=== PATIENT | female | born 1940 | race Caucasian/White ===

== ENCOUNTER 2016-06-25 11:42 | Inpatient (IN) | payer OTHER, MEDICARE ==
[2016-06-25] VITALS (18 sets, daily range): BP systolic 105–138; BP diastolic 68–88; PULSE 90–134; RESP 16–26; TEMP 97.5–97.9; O2SAT 95–100
[~2016-06-25] VITALS: Ht 170.2 cm; Wt 67.1 kg
[~2016-06-25 11:42] MED LIST: CARV3.125 PO; CLOP75 PO; FURO10S PO; LORT5TAB PO; OMEP20CA5 PO; PARO10TA PO; POTA-243 PO; PRIN5TAB PO; SIMV20 PO
--- NOTE | 2016-06-25 12:12 | PD ---
HPI Chief Complaint: Cardiac Complaint Time Seen by Provider: 11:54 Travel History International Travel<30 days: No Contact w/Intl Traveler<30days: No Traveled to known affect area: No History of Present Illness HPI Patient is a 76 year old female presents to the ER for evaluation of palpitations and feeling week. Patient states progressive over the past few weeks. Apparently patient was just diagnosed with a fib, started on eliquis when her nausea started, switched to xarelto. Patient states feeling very weak since then. Patient denies cp, abdominal pain, diarrhea, constipation. Patient does endorse nausea with one episode of emesis (vomiting her asa this morning). No blood in the stool nor emesis. She has followed with Dr. Benjamin in the past. PFS Past Medical History Hx Anticoagulant Therapy: Yes (XARELTO) Arthritis: Yes (BILAT KNEES) Asthma: No Autoimmune Disease: No Blood Disorders: No Anxiety: Yes Depression: Yes Heart Rhythm Problems: Yes (V-TACH) Cancer: No Cardiomyopathy: Yes Cardiovascular Problems: Yes (A-FIB / DEFIBRILLATOR & PACEMAKER / CHF) High Cholesterol: No Chest Pain: Yes Congestive Heart Failure: Yes (11/2007) COPD: No Cerebrovascular Accident: No Coronary Artery Disease: Yes Diabetes: No Diminished Hearing: No Endocrine: Yes GERD: Yes Glaucoma: No Genitourinary: No Headaches: No Hepatitis: No Hiatal Hernia: Yes Hypertension: Yes Immune Disorder: No Kidney Stones: No Musculoskeletal: Yes Neurologic: No Psychiatric: Yes Reproductive: No Respiratory: Yes (THIS ADMISSION FOR CHF) Migraines: No Myocardial Infarction: No Renal Failure: No Seizures: No Sickle Cell Disease: No Sleep Apnea: No Thyroid Disease: Yes (ENLARGED THYROID) Past Surgical History Abdominal Surgery: No AICD: Yes Appendectomy: Yes Arteriovenous Shunt: No Cardiac Surgery: No Cholecystectomy: Yes Ear Surgery: No Endocrine Surgery: No Eye Surgery: No Genitourinary Surgery: No Gynecologic Surgery: Yes (HYSTERECTOMY) Hysterectomy: Yes Insulin Pump: No Joint Replacement: No Oral Surgery: No Pacemaker: Yes (APR 2008) Thoracic Surgery: Yes (GALL BLADDER) Social History Alcohol Use: No Tobacco Use: No (QUIT 15 YEARS AGO) Substance Use: No Allergies-Medications (Allergen,Severity, Reaction): Coded Allergies: Codeine (Verified Allergy, Severe, BLINDNESS, PALPITATIONS, DIAPHORESIS, ) Reported Meds & Prescriptions Reported Meds & Active Scripts Active Lortab 5/500 (Acetaminophen/Hydrocodone Bitart) 5 Mg/500 Mg Tab 1-2 Tab PO Q6HPRN Reported Prinivil (Lisinopril) 5 Mg Tab 5 Mg PO DAILY Zocor (Simvastatin) 20 Mg Tab 20 Mg PO Coreg (Carvedilol) 3.125 Mg Tab 3.125 Mg PO Furosemide 10 Mg/Ml Marah 20 Mg PO Plavix (Clopidogrel Bisulfate) 75 Mg Tab 75 Mg PO DAILY Klor-Con 10 Meq (Potassium Chloride) 10 Meq Tabcr 10 Meq PO BID Prilosec (Omeprazole) 20 Mg Capcr 20 Mg PO DAILY Paxil (Paroxetine HCl) 10 Mg Tab 10 Mg PO DAILY Review of Systems Except as stated in HPI: all other systems reviewed are Neg Physical Exam Narrative GENERAL: WD/WN in nad. SKIN: Warm and dry. HEAD: Atraumatic. Normocephalic. EYES: Pupils equal and round. No scleral icterus. No injection or drainage. ENT: No nasal bleeding or discharge. Mucous membranes pink and moist. NECK: Trachea midline. No JVD. CARDIOVASCULAR: 2+ bilateral equal pulses in all 4 extremities. No MGR. Irregularly irregular and tachycardic. RESPIRATORY: No accessory muscle use. Clear to auscultation. Breath sounds equal bilaterally. GASTROINTESTINAL: Abdomen soft, non-tender, nondistended. Hepatic and splenic margins not palpable. MUSCULOSKELETAL: Extremities without clubbing, cyanosis, or edema. No obvious deformities. NEUROLOGICAL: Awake and alert. No obvious cranial nerve deficits. Motor grossly within normal limits. Five out of 5 muscle strength in the arms and legs. Normal speech. PSYCHIATRIC: Appropriate mood and affect; insight and judgment normal. Data Data Last Documented VS Vital Signs Date Time Temp Pulse Resp B/P Pulse Ox O2 Delivery O2 Flow Rate FiO2 06/25/16 15:00 106 23 112/71 98 Nasal Cannula 2 06/25/16 11:47 97.6 Orders Electrocardiogram (06/25/16 12:04) Basic Metabolic Panel (Bmp) (06/25/16 12:04) B-Type Natriuretic Peptide (06/25/16 12:04) Ckmb (Isoenzyme) Profile (06/25/16 12:04) Complete Blood Count With Diff (06/25/16 12:04) Magnesium (Mg) (06/25/16 12:04) Prothrombin Time / Inr (Pt) (06/25/16 12:04) Act Partial Throm Time (Ptt) (06/25/16 12:04) Troponin I (06/25/16 12:04) Lipase (06/25/16 12:04) Chest, Single Ap (06/25/16 12:04) Ecg Monitoring (06/25/16 12:04) Bilateral Bp Monitoring (06/25/16 12:04) Iv Access Insert/Monitor (06/25/16 12:04) Oximetry (06/25/16 12:04) Oxygen Administration (06/25/16 12:04) Sodium Chloride 0.9% Flush (Ns Flush) (06/25/16 12:15) Sodium Chlorid 0.9% 500 Ml Inj (Ns 500 M (06/25/16 12:15) Metoprolol Tartrate Inj (Lopressor Inj) (06/25/16 13:30) Aspirin Ec (Ecotrin Ec) (06/25/16 13:30) Aspirin (Aspirin) (06/25/16 13:45) Ondansetron Inj (Zofran Inj) (06/25/16 13:45) Metoprolol Tartrate Inj (Lopressor Inj) (06/25/16 14:00) Electrocardiogram (06/25/16 ) Troponin I (06/25/16 14:36) Admit Order (Ed Use Only) (06/25/16 ) Labs Laboratory Tests Test 06/25/16 12:10 White Blood Count 8.2 TH/MM3 Red Blood Count 3.83 MIL/MM3 Hemoglobin 11.2 GM/DL Hematocrit 33.5 % Mean Corpuscular Volume 87.5 FL Mean Corpuscular Hemoglobin 29.2 PG Mean Corpuscular Hemoglobin 33.3 % Concent Red Cell Distribution Width 16.1 % Platelet Count 165 TH/MM3 Mean Platelet Volume 9.3 FL Neutrophils (%) (Auto) 81.8 % Lymphocytes (%) (Auto) 7.1 % Monocytes (%) (Auto) 10.2 % Eosinophils (%) (Auto) 0.4 % Basophils (%) (Auto) 0.5 % Neutrophils # (Auto) 6.7 TH/MM3 Lymphocytes # (Auto) 0.6 TH/MM3 Monocytes # (Auto) 0.8 TH/MM3 Eosinophils # (Auto) 0.0 TH/MM3 Basophils # (Auto) 0.0 TH/MM3 CBC Comment DIFF FINAL Differential Comment Prothrombin Time 16.7 SEC Prothromb Time International 1.5 RATIO Ratio Activated Partial 31.8 SEC Thromboplast Time Sodium Level 135 MEQ/L Potassium Level 4.6 MEQ/L Chloride Level 100 MEQ/L Carbon Dioxide Level 22.7 MEQ/L Anion Gap 12 MEQ/L Blood Urea Nitrogen 25 MG/DL Creatinine 1.25 MG/DL Estimat Glomerular Filtration 41 ML/MIN Rate Random Glucose 154 MG/DL Calcium Level 8.8 MG/DL Magnesium Level 2.4 MG/DL Total Creatine Kinase 52 U/L Troponin I 0.07 NG/ML B-Type Natriuretic Peptide 819 PG/ML Lipase 122 U/L [facility] Medical Decision Making Medical Screen Exam Complete: Yes Emergency Medical Condition: Yes Interpretation(s) EKG shows atrial fibrillation at a rate of 119. QRS duration is 145, QTC normal. There is ST depression in V5 and V6 no elevations. This is an abnormal EKG. Comparison to 05/28/2008, a widened QRS at [address] depression in V4 through V6 was present in 2008. Differential Diagnosis Afib/rvr, STEMI, NSTEMI, CAD, Anemia, dehydration, nausea. Narrative Course Patient roomed in ER, with history of nausea, was fluid challenged with 500cc bolus of NS, no response in HR. Metoprolol 5mg IV given with modest response, additional dose given and HR now 90-100 (from 120-140). She has equivocal troponin at 0.07. Patient discussed with Dr. Benjamin who agrees with [facility] admission. DIscussed with Dr. Carver. The results were explained to patient and son who agree for admission. Critical Care Narrative Critical Care: The total critical care time was 35 minutes. Time to perform other separately billable procedures was not included in the critical care time. This time was spent titrating metoprolol, discussing with multiple consultants, counseling patient. Risks to patient are /disability/heart failure. Diagnosis Primary Impression: Atrial fibrillation with RVR Additional Impression: Elevated troponin I level Admitting Information Admitting Physician Requests: Observation Condition: Stable Ricardo Tse MD Jun 25, 2016 12:12
[2016-06-25] MEDS ORDERED: SODIUM CHLORID 0.9% 500 ML INJ 500 ML IV ONE (12:15)
[2016-06-25] MEDS: SODIUM CHLORIDE 0.9% FLUSH 5 ML FLUSH IVF PRN ×2 (12:27→13:48)
[2016-06-25 12:46] LABS: AUTOMATED NEUTROPHIL # 6.7 TH/MM3 (1.8-7.7); BASOPHIL % 0.5 % (0.0-2.0); EOSINOPHIL % 0.4 % (0.0-4.0); HEMATOCRIT 33.5 % (35.0-46.0); HEMO FLAGS DIFF FINAL; LYMPH % 7.1 % (9.0-44.0); LYMPHOCYTE # 0.6 TH/MM3 (1.0-4.8); MEAN CELL VOLUME 87.5 FL (80.0-100.0); MEAN CORPUSCULAR HEMOGLOBIN 29.2 PG (27.0-34.0); MEAN CORPUSCULAR HGB CONC 33.3 % (32.0-36.0); MONO % 10.2 % (0.0-8.0); NEUT % 81.8 % (16.0-70.0); PLATELET COUNT 165 TH/MM3 (150-450); RED BLOOD COUNT 3.83 MIL/MM3 (4.00-5.30); RED CELL DISTRIBUTION WIDTH 16.1 % (11.6-17.2); WHITE BLOOD COUNT 8.2 TH/MM3 (4.0-11.0)
--- NOTE | 2016-06-25 12:55 | RADRPT ---
EXAM DATE/TIME: 06/25/2016 12:27 [facility] COMPARISON: No previous studies available for comparison. INDICATIONS : Short of breath. MEDICAL HISTORY : None. SURGICAL HISTORY : Pacemaker. ENCOUNTER: Initial ACUITY: 4 - 6 days PAIN SCORE: 0/10 LOCATION: Bilateral chest FINDINGS: A single view of the chest demonstrates increased opacity in the right mid lung laterally and in the left base. Minimal effusions may be present. The heart is moderately enlarged. AICD device is noted in place. CONCLUSION: Bilateral airspace disease with infiltrate noted in the right midlung and left base. Moderate cardiomegaly. AICD. Murali Mayo MD on June 25, 2016 at 12:53 Board Certified Radiologist. This report was verified electronically.
[2016-06-25 12:56] LABS: APTT (PATIENT) 31.8 SEC (24.3-30.1); INTERNATIONAL NORMALIZED RATIO 1.5 RATIO; PROTHROMBIN TIME - PATIENT 16.7 SEC (9.8-11.6)
[2016-06-25 13:14] LABS: BICARBONATE 22.7 MEQ/L (21.0-32.0); MAGNESIUM 2.4 MG/DL (1.5-2.5); POTASSIUM 4.6 MEQ/L (3.5-5.1)
[2016-06-25] MEDS ORDERED: ASPIRIN EC 325 MG TABEC PO ONE (13:30)
[2016-06-25] MEDS ORDERED: METOPROLOL TARTRATE 5 MG/5 ML VIAL IV PUSH ONE ×2 (13:30→14:00)
[2016-06-25] MEDS ORDERED: ONDANSETRON HCL 4 MG/2 ML VIAL IV PUSH ONE (13:45)
[2016-06-25] MEDS ORDERED: ASPIRIN 325 MG TAB PO ONE (13:45)
[2016-06-25] MEDS ORDERED: PROCHLORPERAZINE 25 MG SUPP PR PRN (15:15)
[2016-06-25] MEDS ORDERED: BISACODYL 10 MG SUPP PR PRN (15:15)
[2016-06-25] MEDS ORDERED: SENNOSIDES 8.6 MG TAB PO PRN (15:15)
[2016-06-25] MEDS ORDERED: SODIUM CHLORIDE 0.9% FLUSH 5 ML FLUSH FLUSH PRN (15:15)
[2016-06-25] MEDS ORDERED: ACETAMINOPHEN 325 MG TAB PO PRN (15:15)
[2016-06-25] MEDS ORDERED: ONDANSETRON HCL 4 MG/2 ML VIAL IVP PRN (15:15)
[2016-06-25] MEDS ORDERED: DILTIAZEM INJ 125 MG in SODIUM CHLORIDE 0.9% INJ 100 ML IV SCH (17:00)
--- NOTE | 2016-06-25 17:10 | HHI.HP ---
HPI [facility] Primary Care Physician Griffin Wiggins MD Admission Diagnosis Afib/RVR, Elevated Troponin, Fatigue Diagnoses: Chief Complaint: fatigue, palpitations Travel History International Travel<30 Days: No Contact w/Intl Traveler <30 Da: No Traveled to Known Affected Are: No History of Present Illness 76-year-old female with history of atrial fibrillation on Xarelto, CHF with pacer/AICD, anxiety/depression, HTN, HLD, GERD, presents with a 1.5 week history of weakness, shortness of breath, and occasional palpitations. The patient reports she has felt severely weak and fatigued over the past 1.5 week; states she has mostly stayed in bed because of this. She can barely ambulate around the house without becoming dyspneic, relieved by rest. She has also been experiencing palpitations, especially after exertion and when she lies down at night. Denies chest pain. She has also been very nauseous, no vomiting, but with decreased appetite and oral intake. Denies any fevers/chills or cough. Denies any orthopnea, lower extremity edema, or recent weight gain. Her general production laborer is Dr. Benjamin. She was recently switched from Eliquis to Xarelto 1.5weeks ago because of the nausea however it has not improved. Upon arrival, patient noted to be in atrial fibrillation with RVR, rate 130s. She was given IV metoprolol 5mg x2, aspirin, and IV zofran. Heart rate now in low 100s. ER physician discussed with the patient's general production laborer Dr. Benjamin who recommended admission to [facility]. Review of Systems Except as stated in HPI: all other systems reviewed are Neg Past Family Social History Past Medical History Atrial fibrillation on Xarelto CAD with 3 stents CHF HTN HLD Thyroid nodules Arthritis Past Surgical History Pacer/AICD Cardiac catheterization with 3 stents Cholecystectomy Hysterectomy Appendectomy Reported Medications Prinivil (Lisinopril) 5 Mg Tab 5 Mg PO DAILY Zocor (Simvastatin) 20 Mg Tab 20 Mg PO Coreg (Carvedilol) 3.125 Mg Tab 3.125 Mg PO Furosemide 10 Mg/Ml Marah 20 Mg PO Plavix (Clopidogrel Bisulfate) 75 Mg Tab 75 Mg PO DAILY Klor-Con 10 Meq (Potassium Chloride) 10 Meq Tabcr 10 Meq PO BID Prilosec (Omeprazole) 20 Mg Capcr 20 Mg PO DAILY Paxil (Paroxetine HCl) 10 Mg Tab 10 Mg PO DAILY Allergies: Coded Allergies: Codeine (Verified Allergy, Severe, BLINDNESS, PALPITATIONS, DIAPHORESIS, ) Active Ordered Medications Current Medications Medications (Trade) Dose Ordered Sig/Michael Route Start Time Stop Time Status Last Admin (NS Flush) 2 ml UNSCH PRN FLUSH 06/25/16 15:15 (NS Flush) 2 ml BID FLUSH 06/25/16 21:00 (Tylenol) 650 mg Q4H PRN PO 06/25/16 15:15 (Zofran Inj) 4 mg Q6H PRN IVP 06/25/16 15:15 (Compazine Supp) 25 mg Q12H PRN MO 06/25/16 15:15 (Dulcolax Supp) 10 mg DAILY PRN MO 06/25/16 15:15 Sennosides 17.2 mg 17.2 mg Q12H PRN PO 06/25/16 15:15 (Cardizem Inj/NS Inj) 125 ml @ 0 mls/hr TITRATE IV 06/25/16 17:00 Family History Mother and Father both before age 65 with heart disease Brother with coronary occlusion/MT, age 35 Younger brother also with heart disease Social History Denies any tobacco, alcohol, or illicit drug use. Physical Exam Vital Signs Vital Signs Date Time Temp Pulse Resp B/P Pulse Ox O2 Delivery O2 Flow Rate FiO2 06/25/16 15:00 106 23 112/71 98 Nasal Cannula 2 06/25/16 14:34 105 26 129/76 98 Nasal Cannula 06/25/16 14:06 106 118/75 06/25/16 13:50 130 20 123/77 98 Room Air 06/25/16 12:15 126 06/25/16 12:15 126 16 122/83 100 Nasal Cannula 2 06/25/16 12:12 100 Nasal Cannula 2 06/25/16 12:11 126 138/74 06/25/16 12:04 134 18 128/88 100 Room Air 06/25/16 11:47 97.6 126 16 132/77 98 Physical Exam GENERAL: Well-nourished, well-developed elderly female patient, in NAD. SKIN: No rashes, ecchymoses or lesions. Cool and dry. HEAD: Atraumatic. Normocephalic. No temporal or scalp tenderness. EYES: Pupils equal round and reactive. Extraocular motions intact. No scleral icterus. No injection or drainage. ENT: Nose without bleeding, purulent drainage or septal hematoma. Airway patent. NECK: Trachea midline. No JVD or lymphadenopathy. Supple, nontender, no meningeal signs. CARDIOVASCULAR: Irregular rate and rhythm without murmurs, gallops, or rubs. RESPIRATORY: Clear to auscultation. Mild crackles at left base, otherwise clear. Breath sounds equal bilaterally. GASTROINTESTINAL: Abdomen soft, non-tender, nondistended. No hepato-splenomegaly , or palpable masses. No guarding. MUSCULOSKELETAL: Extremities without clubbing, cyanosis, or edema. No calf tenderness. Negative Homans sign bilaterally. NEUROLOGICAL: Awake and alert. Cranial nerves II through XII intact. Motor and sensory grossly within normal limits. Five out of 5 muscle strength in all muscle groups. Normal speech. Laboratory Laboratory Tests Test 06/25/16 06/25/16 12:10 15:25 White Blood Count 8.2 Red Blood Count 3.83 Hemoglobin 11.2 Hematocrit 33.5 Mean Corpuscular Volume 87.5 Mean Corpuscular Hemoglobin 29.2 Mean Corpuscular Hemoglobin 33.3 Concent Red Cell Distribution Width 16.1 Platelet Count 165 Mean Platelet Volume 9.3 Neutrophils (%) (Auto) 81.8 Lymphocytes (%) (Auto) 7.1 Monocytes (%) (Auto) 10.2 Eosinophils (%) (Auto) 0.4 Basophils (%) (Auto) 0.5 Neutrophils # (Auto) 6.7 Lymphocytes # (Auto) 0.6 Monocytes # (Auto) 0.8 Eosinophils # (Auto) 0.0 Basophils # (Auto) 0.0 CBC Comment DIFF FINAL Differential Comment Prothrombin Time 16.7 Prothromb Time International 1.5 Ratio Activated Partial 31.8 Thromboplast Time Sodium Level 135 Potassium Level 4.6 Chloride Level 100 Carbon Dioxide Level 22.7 Anion Gap 12 Blood Urea Nitrogen 25 Creatinine 1.25 Estimat Glomerular Filtration 41 Rate Random Glucose 154 Calcium Level 8.8 Magnesium Level 2.4 Total Creatine Kinase 52 Troponin I 0.07 0.07 B-Type Natriuretic Peptide 819 Lipase 122 Result Diagram: 06/25/16 1210 06/25/16 1210 Assessment and Plan Assessment and Plan 76-year-old female with history of atrial fibrillation on Xarelto, CHF with pacer/AICD, anxiety/depression, HTN, HLD, GERD, presents with a 1.5 week history of weakness, shortness of breath, and occasional palpitations. Atrial Fibrillation with RVR: HR in 130s upon arrival, s/p IV metoprolol 5mg x2 , aspirin, and IV zofran. Heart rate now in low 100s. Monitor on telemetry. Admit to [facility]. Restart patient's Eliquis. Cardizem drip prn if HR >110. Consult patient's general production laborer Dr. Benjamin. Elevated Troponin with suspect new LBBB: No specific chest pains however with severe nausea, palpitations. Troponins 0.07 x2, EKG with suspected new LBBB with ST depression V5-6, compared to prior EKG from 2009. Checking 3rd set of cardiac enzymes/EKGs. Give aspirin. Restart patient's home meds when verified by RN. Consult cardiology. Weakness/Fatigue: suspect related to above. Check echocardiogram with hx of CHF. Consult PT. Patient may benefit from rehab. Hypertension/Hyperlipidemia: chronic, continue patient's home meds once verified. Monitor BP, adjust antihypertensives as needed. CHF: chronic, does not appear to be in exacerbation. Continue patient's home meds once verified. Check echo. NEEDS HOME MEDS VERIFIED. ASKED RN TO UPDATE MED REC BEFORE RESTARTING HOME MEDICATIONS. DVT Prophylaxis: Eliquis Written by Chanelle Damon, acting as scribe for Dr. Ma on 06/25/16 at 17:09. All or portions of this note were transcribed by scribe Chanelle Damon. I, Dr. Shakira Ma personally performed the history, physical exam, and medical decision making; and confirmed the accuracy of the information in the transcribed note. Authenticated by Dr. Shakira Ma on 06/25/16 at 19:24. Code Status Full Code Discussed Condition With Patient, Patient's family member at bedside, ER MD. Physician Certification 2 Midnight Certification Type: Admission for Inpatient Services Order for Inpatient Services The services are ordered in accordance with Medicare regulations or non- Medicare payer requirements, as applicable. In the case of services not specified as inpatient-only, they are appropriately provided as inpatient services in accordance with the 2-midnight benchmark. Estimated LOS (days): 3 days is the estimated time the patient will need to remain in the hospital, assuming treatment plan goals are met and no additional complications. Post-Hospital Plan: Home Chanelle Damon PA-C Jun 25, 2016 17:10 Shakira Ma MD Jun 25, 2016 19:26
[2016-06-25] MEDS: SODIUM CHLORIDE 0.9% FLUSH 5 ML FLUSH FLUSH SCH (21:00)
[2016-06-25] MEDS ORDERED: APIXABAN 5 MG TABLET PO SCH (21:00)
[2016-06-26] VITALS (31 sets, daily range): BP systolic 105–122; BP diastolic 65–87; PULSE 80–113; RESP 16–19; TEMP 97.8–98.3; O2SAT 93–97
[2016-06-26 06:46] LABS: AUTOMATED NEUTROPHIL # 6.4 TH/MM3 (1.8-7.7); BASOPHIL % 0.3 % (0.0-2.0); EOSINOPHIL # 0.1 TH/MM3 (0-0.4); EOSINOPHIL % 0.7 % (0.0-4.0); HEMATOCRIT 31.9 % (35.0-46.0); HEMO FLAGS DIFF FINAL; LYMPH % 11.3 % (9.0-44.0); MEAN CORPUSCULAR HEMOGLOBIN 28.9 PG (27.0-34.0); MEAN CORPUSCULAR HGB CONC 32.8 % (32.0-36.0); MONO % 13.2 % (0.0-8.0); NEUT % 74.5 % (16.0-70.0); PLATELET COUNT 147 TH/MM3 (150-450); RED BLOOD COUNT 3.62 MIL/MM3 (4.00-5.30); RED CELL DISTRIBUTION WIDTH 16.2 % (11.6-17.2); WHITE BLOOD COUNT 8.6 TH/MM3 (4.0-11.0)
[2016-06-26 07:02] LABS: BICARBONATE 24.2 MEQ/L (21.0-32.0); POTASSIUM 4.5 MEQ/L (3.5-5.1)
--- NOTE | 2016-06-26 07:47 | HHI.PR ---
Subjective Remarks Patient says she feels lightheadede, some nausea but did not vomit, says she did not eat breakfast. No chest pain at this time. No n/v/d/c. Doesn't feel palpitations. Objective Vitals Vital Signs Date Time Temp Pulse Resp B/P Pulse Ox O2 Delivery O2 Flow Rate FiO2 06/26/16 06:03 93 06/26/16 05:04 84 06/26/16 04:05 81 06/26/16 03:45 98.2 90 16 105/65 93 06/26/16 03:34 95 Nasal Cannula 2.00 06/26/16 03:11 85 06/26/16 02:15 81 06/26/16 01:02 84 06/26/16 00:33 95 06/25/16 23:56 97.9 93 16 114/75 95 06/25/16 23:00 94 06/25/16 22:00 90 06/25/16 21:00 96 06/25/16 20:00 98 06/25/16 19:45 96 06/25/16 19:30 97.5 93 19 105/68 95 06/25/16 18:00 110 22 120/87 97 Nasal Cannula 2 06/25/16 17:00 102 26 127/69 98 Nasal Cannula 2 06/25/16 16:00 122 17 119/72 97 Nasal Cannula 2 06/25/16 15:00 106 23 112/71 98 Nasal Cannula 2 06/25/16 14:34 105 26 129/76 98 Nasal Cannula 06/25/16 14:06 106 118/75 06/25/16 13:50 130 20 123/77 98 Room Air 06/25/16 12:15 126 06/25/16 12:15 126 16 122/83 100 Nasal Cannula 2 06/25/16 12:12 100 Nasal Cannula 2 06/25/16 12:11 126 138/74 06/25/16 12:04 134 18 128/88 100 Room Air 06/25/16 11:47 97.6 126 16 132/77 98 I/O 06/25/16 06/25/16 06/25/16 06/26/16 06/26/16 06/26/16 07:00 15:00 23:00 07:00 15:00 23:00 Intake Total 480 ml Output Total 750 ml Balance -270 ml Intake Oral 480 ml Output Urine Total 750 ml Result Diagram: 06/26/16 0605 06/26/16 0605 Imaging Last Impressions Chest X-Ray 06/25/16 1204 Signed Impressions: Service Date/Time: Saturday, June 25, 2016 12:27 - CONCLUSION: Bilateral airspace disease with infiltrate noted in the right midlung and left base. Moderate cardiomegaly. AICD. Murali Mayo MD Objective Remarks GENERAL: Well-nourished, well-developed elderly female patient, in NAD. SKIN: No rashes, ecchymoses or lesions. Cool and dry. HEAD: Atraumatic. Normocephalic. No temporal or scalp tenderness. EYES: Pupils equal round and reactive. Extraocular motions intact. No scleral icterus. No injection or drainage. ENT: Nose without bleeding, purulent drainage or septal hematoma. Airway patent. NECK: Trachea midline. No JVD or lymphadenopathy. Supple, nontender, no meningeal signs. CARDIOVASCULAR: Irregular rate and rhythm without murmurs, gallops, or rubs. RESPIRATORY: Clear to auscultation. Mild crackles at left base, otherwise clear. Breath sounds equal bilaterally. GASTROINTESTINAL: Abdomen soft, non-tender, nondistended. No hepato-splenomegaly , or palpable masses. No guarding. MUSCULOSKELETAL: Extremities without clubbing, cyanosis, or edema. No calf tenderness. Negative Homans sign bilaterally. NEUROLOGICAL: Awake and alert. Cranial nerves II through XII intact. Motor and sensory grossly within normal limits. Five out of 5 muscle strength in all muscle groups. Normal speech. A/P Assessment and Plan 76-year-old female with history of atrial fibrillation on Xarelto, CHF with pacer/AICD, anxiety/depression, HTN, HLD, GERD, presents with a 1.5 week history of weakness, shortness of breath, and occasional palpitations. Atrial Fibrillation with RVR: HR in 130s upon arrival, s/p IV metoprolol 5mg x2 , aspirin, and IV zofran. Heart rate now in low 100s. Monitor on telemetry. Admit to [facility]. Restart patient's Eliquis. Cardizem drip prn if HR >110. Consult patient's projection camera operator Dr. Benjamin. Patient with beats of Vtach noted later. Seen by Dr Benjamin recommends myoview stress test Elevated Troponin with suspect new LBBB: No specific chest pains however with severe nausea, palpitations. Troponins 0.07 x2, EKG with suspected new LBBB with ST depression V5-6, compared to prior EKG from 2009. Checking 3rd set of cardiac enzymes/EKGs. Give aspirin. Restart patient's home meds when verified by RN. Consult cardiology. Plan for stress test Weakness/Fatigue: suspect related to above. Check echocardiogram with hx of CHF. Consult PT. Patient may benefit from rehab. Hypertension/Hyperlipidemia: chronic, continue patient's home meds once verified. Monitor BP, adjust antihypertensives as needed. CHF: chronic, does not appear to be in exacerbation. Continue patient's home meds once verified. Check echo. DVT Prophylaxis: Eliquis Code Status Full Code Discussed Condition With Patient, nurse Shakira Ma MD Jun 26, 2016 07:47
[2016-06-26] MEDS ORDERED: CLOPIDOGREL 75 MG TAB PO SCH (09:00)
[2016-06-26] MEDS ORDERED: ZOCO20TA PO (09:48)
[2016-06-26] MEDS ORDERED: FURO20TA PO (09:48)
[2016-06-26] MEDS ORDERED: PRIL20CA9 PO (09:48)
[2016-06-26] MEDS ORDERED: PAXI10TA2 PO (09:48)
[2016-06-26] MEDS ORDERED: POTA10CA PO (09:48)
[2016-06-26] MEDS ORDERED: CARV3.12 PO (09:48)
[2016-06-26] MEDS ORDERED: LISI-519 PO (09:48)
[2016-06-26] MEDS: SODIUM CHLORIDE 0.9% FLUSH 5 ML FLUSH FLUSH SCH ×2 (10:30→21:12)
[2016-06-26] MEDS: CARVEDILOL 12.5 MG TAB PO SCH ×2 (10:37→21:12)
[2016-06-26] MEDS: PANTOPRAZOLE SOD 20 MG DELAYED RELEASE TAB PO SCH (10:37)
--- NOTE | 2016-06-26 12:53 | EC ---
Study Study Date:06/26/2016 STUDY CONCLUSIONS SUMMARY - Left ventricle: The cavity size was dilated. Wall thickness was normal. Systolic function was severely reduced by visual assessment. The estimated ejection fraction was in the range of 15% to 20%. Diffuse hypokinesis. - Aortic valve: Valve area: 2.59cm^2 (Vmax). - Mitral valve: Severe regurgitation. - Left atrium: The atrium was moderately to severely dilated. - Right atrium: The atrium was mildly to moderately dilated. - Tricuspid valve: Mild-moderate regurgitation. - Pulmonary arteries: Systolic pressure was moderately to severely increased. If LV function is below 40, please consider prescribing an ACEI or ARB or document rationale for non-use. PROCEDURE DATA STUDY STATUS: Elective. Procedure: Transthoracic echocardiography. Image quality was good. Scanning was performed from the parasternal, apical, and subcostal acoustic windows. Study completion: The patient tolerated the procedure well. Transthoracic echocardiography. M-mode, complete 2D, complete spectral Doppler, and color Doppler. Height: Height: 67in. Weight: Weight: 142.7lb. Body mass index: BMI: 22.4kg/m^2. Body surface area: BSA: 1.75m^2. Patient status: Inpatient. CARDIAC ANATOMY LEFT VENTRICLE: The cavity size was dilated. Wall thickness was normal. Systolic function was severely reduced by visual assessment. The estimated ejection fraction was in the range of 15% to 20%. Diffuse hypokinesis. AORTIC VALVE: Trileaflet; normal thickness leaflets. Doppler: Transvalvular velocity was within the normal range. There was no stenosis. No regurgitation. Valve area: 2.59cm^2 (Vmax). Indexed valve area: 1.48cm^2/m^2 (Vmax). AORTA: Aortic root: The aortic root was normal in size. MITRAL VALVE: Structurally normal valve. Doppler: Transvalvular velocity was within the normal range. There was no evidence for stenosis. Severe regurgitation. Valve area by pressure half-time: 6.67cm^2. Indexed valve area by pressure half-time: 3.81cm^2/m^2. Mean gradient: 52mm Hg (D). Peak gradient: 93mm Hg (D). LEFT ATRIUM: The atrium was moderately to severely dilated. RIGHT VENTRICLE: The cavity size was normal. Wall thickness was normal. There may be a pacer wire noted in right ventricle. Only seen in one view. It may also be artifact. clinical correlation. PULMONIC VALVE: Doppler: Transvalvular velocity was within the normal range. There was no evidence for stenosis. No regurgitation. TRICUSPID VALVE: Structurally normal valve. Doppler: Transvalvular velocity was within the normal range. Mild-moderate regurgitation. Peak gradient: 43mm Hg (D). PULMONARY ARTERY: The main pulmonary artery was normal-sized. Systolic pressure was moderately to severely increased. RIGHT ATRIUM: The atrium was mildly to moderately dilated. PERICARDIUM: There was no pericardial effusion. SYSTEMIC VEINS: Inferior vena cava: The vessel was dilated. Patient weight: 142.7lb _Ejection fraction:_ 65-75% _Fractional shortening:_ 32% up to 5Kg 5-11.5Kg 11.6-22.9Kg 23-45Kg 45-57Kg Aortic Root 7-13 <17 13-22 17-27 17-27 LA diam 6-13 <23 24-38 33-47 37-40 RVID 10-17 7-15 7-15 7-18 8-17 LVIDd 12-22 <32 24-38 33-47 37-40 LVPW 2-4 3-6 5-7 6-8 7-8 IVS 2-4 3-6 5-7 6-8 7-8 BASIC MEASUREMENTS ADULT NORMAL Left ventricle LV internal dimension, ED, chordal *60.5 mm 43-52 level, PLAX LV internal dimension, ES, chordal *54.7 mm 23-38 level, PLAX Fractional shortening, chordal level, *10 % >29 PLAX LV posterior wall thickness, ED 8.36 mm IVS/LVPW ratio, ED 1 <1.3 Volume, ED, MOD, 1-plane 59 ml Volume index, ED, MOD, 1-plane 34 ml/m^2 Ventricular septum Septal thickness, ED 8.36 mm Aortic valve Leaflet separation 19 mm 15-26 Left atrium Anterior-posterior dimension 46 mm Anterior-posterior dimension index *2.63 cm/m^2 <2.2 Right ventricle RV internal dimension, ED, PLAX 28.5 mm 19-38 BASIC MEASUREMENTS ADULT NORMAL Aortic valve Leaflet separation 19 mm 15-26 Aorta Root diameter, ED 33 mm 20-37 DOPPLER MEASUREMENTS ADULT NORMAL Aortic valve Peak velocity, S 99.1 cm/s VTI, S 142 cm Valve area, Vmax 2.59 cm^2 Valve area index, Vmax 1.48 cm^2/m^2 Mitral valve Mean velocity, D 332 cm/s Pressure half-time 33 ms Mean gradient, D 52 mm Hg Peak gradient, D 93 mm Hg Valve area, pressure half-time 6.67 cm^2 Valve area index, pressure half-time 3.81 cm^2/m^2 Tricuspid valve Peak gradient, D 43 mm Hg Maximal inflow velocity 326 cm/s Systemic veins Estimated CVP 10 mm Hg Pulmonic valve Peak velocity, S 59.7 cm/s LEGEND: Mean values are shown as u=mean value. Asterisk (*) perera values outside specified normal range. Amended Willis Roberts [id number]
[2016-06-26] MEDS ORDERED: DIGOXIN 0.25 MG TAB PO ONE (14:00)
--- NOTE | 2016-06-26 14:26 | MB ---
cc: HANG DENISE MD DATE OF CONSULTATION: 06/26/2016 REASON FOR CONSULTATION Atrial fibrillation and elevated troponin. HISTORY OF PRESENT ILLNESS The patient is a pleasant 76-year-old woman known to me with a recent diagnosis of atrial fibrillation. She presented to my office with 1-2 weeks of weakness, fatigue and palpitations and was found to be in atrial fibrillation. She was initially started on Eliquis but this was changed to Xarelto due to generalized symptoms which the patient attributed to the new anticoagulant. These symptoms never really improved even with changing to Xarelto and she presented to the hospital in a mildly rapid atrial fibrillation with slightly elevated troponin. Her heart rate is controlled now and she has no further symptoms. She is asymptomatic denying any chest pain, shortness breath, lightheadedness, dizziness or syncope. PAST MEDICAL HISTORY 1. Newly discovered atrial fibrillation on Xarelto. 2. Ischemic cardiomyopathy with ejection fraction of 15-20%. 3. AICD. 4. CHF. 5. Hypertension. 6. Hyperlipidemia. MEDICATIONS Current medications: 1. Xarelto 20 mg daily. 2. Coreg 12.5 mg q.12h. 3. Protonix 20 mg daily. ALLERGIES CODEINE. PHYSICAL EXAMINATION VITAL SIGNS: Afebrile. Pulse 87, respiratory rate 16, blood pressure 113/75. Satting 93% on two liters. GENERAL: A pleasant elderly woman in no distress. NECK: No JVD. LUNGS: Decreased breath sounds at the bases. CARDIOVASCULAR: Irregularly irregular rhythm with regular rate. No murmurs appreciated. ABDOMEN: Benign. EXTREMITIES: No edema. LABORATORY DATA White count 8.6, hematocrit 31.9, platelets 147. Sodium 138, potassium 4.5, chloride 102, bicarb 24.2, BUN 25, creatinine 1.2. Troponins are flat at 0.07. BNP is modestly elevated at 116. IMAGING DATA Chest x-ray shows cardiomegaly with a right middle and left infiltrate. EKG DATA EKG on admission showed atrial fibrillation, rate of 120, left bundle-branch block. Telemetry shows reasonably controlled atrial fibrillation at about 100 beats per minute with episodes of nonsustained ventricular tachycardia. IMPRESSION AND PLAN 1. Atrial fibrillation. The patient has newly diagnosed atrial fibrillation and has been somewhat symptomatic, particularly due to her low ejection fraction. Her heart rates have been improving, though they are still suboptimal. Her blood pressures have been low at times so I am reluctant to increase the carvedilol. I will try adding low-dose digoxin. 2. Elevated troponin. This is a nonspecific finding. I will have her undergo a nuclear stress test given the new atrial fibrillation. She has a known cardiomyopathy. 3. Cardiomyopathy. Her lisinopril has not been restarted. I will restart this given her low ejection fraction. We will have to watch her blood pressures of course. Further recommendations based on her clinical. Hopefully she can be discharged home tomorrow. Thank you again for the opportunity to participate in this patient's care. MD LALIT Song/BRENDA /1:56 PM /2:14 PM
--- NOTE | 2016-06-26 14:42 | EKG ---
Date Performed: 06/25/2016 Time Performed: 12:02:54 PTAGE: 76 years EKG: ATRIAL FIBRILLATION WITH RAPID VENTRICULAR RESPONSE MARKED LEFT AXIS DEVIATION LEFT BUNDLE BRANCH BLOCK ABNORMAL ECG Compared to PREVIOUS TRACING , the ventricular response to atrial fibrillation has increased. PREVIOU S TRACIN05/28/2008 13.03 DOCTOR: Fernando Benjamin Interpretating Date/Time 06/26/2016 14:38:56
--- NOTE | 2016-06-26 14:43 | EKG ---
Date Performed: 06/25/2016 Time Performed: 15:36:47 PTAGE: 76 years EKG: ATRIAL FLUTTER/TACHYCARDIA WITH RAPID VENTRICULAR RESPONSE MARKED LEFT AXIS DEVIATION LEFT BUNDLE BRANCH BLOCK ABNORMAL ECG Compared to PREVIOUS TRACING ventricular response has decreased. PREVIOUS TRACIN06/25/2016 12.02 DOCTOR: Fernando Benjamin Interpretating Date/Time 06/26/2016 14:39:36
--- NOTE | 2016-06-26 14:45 | EKG ---
Date Performed: 06/25/2016 Time Performed: 22:25:44 PTAGE: 76 years EKG: Atrial fibrillation with PVC(s) Left axis deviation Incomplete LBBB QRS changes V3/V4 may b e due to LVH but cannot rule out anterior infarct Possible left ventricular hypertrophy Inferior/late ral ST-T changes may be due to hypertrophy and/or ischemia Abnormal ECG Compared to PREVIOUS TRACING , the ventricular response has decreased further. PREVIOUS TRACIN06/13 15.36 DOCTOR: Fernando Benjamin Interpretating Date/Time 06/26/2016 14:40:03
[2016-06-26] MEDS ORDERED: RIVAROXABAN 20 MG TAB PO SCH (17:00)
[2016-06-26] MEDS ORDERED: diphenhydrAMINE HCL 25 MG CAP PO ONE (20:00)
[2016-06-27] VITALS (17 sets, daily range): BP systolic 123–138; BP diastolic 81–90; PULSE 65–118; RESP 16–19; TEMP 97.5–98.5; O2SAT 92–96
[2016-06-27 06:19] LABS: AUTOMATED NEUTROPHIL # 8.4 TH/MM3 (1.8-7.7); BASOPHIL % 0.4 % (0.0-2.0); EOSINOPHIL % 0.3 % (0.0-4.0); HEMATOCRIT 29.8 % (35.0-46.0); HEMO FLAGS DIFF FINAL; LYMPH % 4.7 % (9.0-44.0); LYMPHOCYTE # 0.5 TH/MM3 (1.0-4.8); MEAN CELL VOLUME 87.9 FL (80.0-100.0); MEAN CORPUSCULAR HEMOGLOBIN 29.2 PG (27.0-34.0); MEAN CORPUSCULAR HGB CONC 33.3 % (32.0-36.0); MONO % 10.5 % (0.0-8.0); NEUT % 84.1 % (16.0-70.0); PLATELET COUNT 136 TH/MM3 (150-450); RED BLOOD COUNT 3.39 MIL/MM3 (4.00-5.30); RED CELL DISTRIBUTION WIDTH 15.7 % (11.6-17.2)
[2016-06-27 06:48] LABS: ANION GAP 12 MEQ/L (5-15); BICARBONATE 23.8 MEQ/L (21.0-32.0); BLOOD UREA NITROGEN 23 MG/DL (7-18); CHLORIDE 102 MEQ/L (98-107); GLOMERULAR FILTRATION RATE 53 ML/MIN (>89); POTASSIUM 4.2 MEQ/L (3.5-5.1); SODIUM (NA) 138 MEQ/L (136-145)
--- NOTE | 2016-06-27 07:06 | PD.CARD.PN ---
Subjective Subjective Remarks PT without complaints Objective Medications Current Medications Medications (Trade) Dose Ordered Sig/Michael Route Start Time Stop Time Status Last Admin (NS Flush) 2 ml UNSCH PRN FLUSH 06/25/16 15:15 (NS Flush) 2 ml BID FLUSH 06/25/16 21:00 06/26/16 21:12 (Tylenol) 650 mg Q4H PRN PO 06/25/16 15:15 (Zofran Inj) 4 mg Q6H PRN IVP 06/25/16 15:15 (Compazine Supp) 25 mg Q12H PRN ND 06/25/16 15:15 (Dulcolax Supp) 10 mg DAILY PRN ND 06/25/16 15:15 06/27/16 03:13 Sennosides 17.2 mg 17.2 mg Q12H PRN PO 06/25/16 15:15 06/26/16 15:10 (Cardizem Inj/NS Inj) 125 ml @ 0 mls/hr TITRATE IV 06/25/16 17:00 06/25/16 18:53 (Xarelto) 20 mg DAILY@17 PO 06/26/16 17:00 06/26/16 17:48 (Plavix) 75 mg DAILY PO 06/26/16 09:00 (Coreg) 12.5 mg Q12HR PO 06/26/16 09:00 06/26/16 21:12 (Protonix) 20 mg DAILY PO 06/26/16 09:00 06/26/16 10:37 (Prinivil) 5 mg DAILY PO 06/27/16 09:00 (Lanoxin) 0.125 mg DAILY PO 06/28/16 09:00 Vital Signs / I&O Vital Signs Date Time Temp Pulse Resp B/P Pulse Ox O2 Delivery O2 Flow Rate FiO2 06/27/16 06:19 101 06/27/16 05:13 99 06/27/16 04:01 104 06/27/16 03:30 106 06/27/16 03:16 98.5 118 19 129/83 94 06/27/16 02:20 108 06/27/16 01:19 108 06/27/16 00:06 107 06/26/16 23:15 98.2 109 17 113/87 96 06/26/16 23:00 102 06/26/16 22:35 102 06/26/16 21:00 110 06/26/16 20:36 94 21 06/26/16 20:00 108 06/26/16 19:15 98.2 106 19 122/83 95 06/26/16 19:00 101 06/26/16 18:04 113 06/26/16 17:14 108 06/26/16 16:00 96 06/26/16 15:30 97.9 100 16 121/80 97 06/26/16 15:00 89 06/26/16 14:00 102 06/26/16 13:00 87 06/26/16 12:00 98.3 99 16 113/75 93 06/26/16 12:00 94 06/26/16 11:10 96 Nasal Cannula 2.00 06/26/16 11:00 100 06/26/16 10:00 94 06/26/16 09:00 96 06/26/16 08:00 86 06/26/16 08:00 97.8 90 16 120/65 96 I/O 06/26/16 06/26/16 06/26/16 06/27/16 06/27/16 06/27/16 07:00 15:00 23:00 07:00 15:00 23:00 Intake Total 480 ml 480 ml 240 ml Output Total 750 ml 600 ml 350 ml Balance -270 ml -120 ml -110 ml Intake Oral 480 ml 480 ml 240 ml Output Urine Total 750 ml 600 ml 350 ml # Bowel Movements 0 Physical Exam GENERAL: Well developed, well nourished. No acute distress. HEENT: Jugular venous pressure is normal. CHEST: Lungs clear to auscultation bilaterally. Unlabored respiratory effort. CARDIAC: irregular rate and rhythm without S3, S4, or murmur. ABDOMEN: Soft, nontender, no hepatosplenomegaly. Bowel sounds present. EXTREMITIES: No clubbing, cyanosis, or edema. Laboratory Laboratory Tests Test 06/27/16 05:34 White Blood Count 10.0 TH/MM3 Red Blood Count 3.39 MIL/MM3 Hemoglobin 9.9 GM/DL Hematocrit 29.8 % Mean Corpuscular Volume 87.9 FL Mean Corpuscular Hemoglobin 29.2 PG Mean Corpuscular Hemoglobin 33.3 % Concent Red Cell Distribution Width 15.7 % Platelet Count 136 TH/MM3 Mean Platelet Volume 8.5 FL Neutrophils (%) (Auto) 84.1 % Lymphocytes (%) (Auto) 4.7 % Monocytes (%) (Auto) 10.5 % Eosinophils (%) (Auto) 0.3 % Basophils (%) (Auto) 0.4 % Neutrophils # (Auto) 8.4 TH/MM3 Lymphocytes # (Auto) 0.5 TH/MM3 Monocytes # (Auto) 1.1 TH/MM3 Eosinophils # (Auto) 0.0 TH/MM3 Basophils # (Auto) 0.0 TH/MM3 CBC Comment DIFF FINAL Differential Comment Sodium Level 138 MEQ/L Potassium Level 4.2 MEQ/L Chloride Level 102 MEQ/L Carbon Dioxide Level 23.8 MEQ/L Anion Gap 12 MEQ/L Blood Urea Nitrogen 23 MG/DL Creatinine 1.01 MG/DL Estimat Glomerular Filtration 53 ML/MIN Rate Random Glucose 110 MG/DL Calcium Level 8.5 MG/DL Imaging Last 72 hours Impressions Chest X-Ray 06/25/16 1204 Signed Impressions: Service Date/Time: Saturday, June 25, 2016 12:27 - CONCLUSION: Bilateral airspace disease with infiltrate noted in the right midlung and left base. Moderate cardiomegaly. AICD. Murali Mayo MD Assessment and Plan Assessment and Plan AF - still some RVR though not sustained -increase coreg -stop xarelto secondary to anemia hx CAD- stop plavix secondary anemia cardiomyopathy-coreg and lisinopril trop- nuc today Anemia- hemoglobin dropped 11.2=> 9.9 stop anticoagulants, further work up by primary team ok for d/c if no ischemia and rate controlled Silvia Ng MD Jun 27, 2016 07:06
[2016-06-27] MEDS: SODIUM CHLORIDE 0.9% FLUSH 5 ML FLUSH FLUSH SCH (07:33)
[2016-06-27] MEDS: PANTOPRAZOLE SOD 20 MG DELAYED RELEASE TAB PO SCH (07:34)
--- NOTE | 2016-06-27 07:34 | HHI.PR ---
Subjective Remarks Feels much better today. Say sshe has no more pain . No n/v/d/c. Says she has constipation. Objective Vitals Vital Signs Date Time Temp Pulse Resp B/P Pulse Ox O2 Delivery O2 Flow Rate FiO2 06/27/16 06:19 101 06/27/16 05:13 99 06/27/16 04:01 104 06/27/16 03:30 106 06/27/16 03:16 98.5 118 19 129/83 94 06/27/16 02:20 108 06/27/16 01:19 108 06/27/16 00:06 107 06/26/16 23:15 98.2 109 17 113/87 96 06/26/16 23:00 102 06/26/16 22:35 102 06/26/16 21:00 110 06/26/16 20:36 94 21 06/26/16 20:00 108 06/26/16 19:15 98.2 106 19 122/83 95 06/26/16 19:00 101 06/26/16 18:04 113 06/26/16 17:14 108 06/26/16 16:00 96 06/26/16 15:30 97.9 100 16 121/80 97 06/26/16 15:00 89 06/26/16 14:00 102 06/26/16 13:00 87 06/26/16 12:00 98.3 99 16 113/75 93 06/26/16 12:00 94 06/26/16 11:10 96 Nasal Cannula 2.00 06/26/16 11:00 100 06/26/16 10:00 94 06/26/16 09:00 96 06/26/16 08:00 86 06/26/16 08:00 97.8 90 16 120/65 96 I/O 06/26/16 06/26/16 06/26/16 06/27/16 06/27/16 06/27/16 07:00 15:00 23:00 07:00 15:00 23:00 Intake Total 480 ml 480 ml 240 ml Output Total 750 ml 600 ml 350 ml Balance -270 ml -120 ml -110 ml Intake Oral 480 ml 480 ml 240 ml Output Urine Total 750 ml 600 ml 350 ml # Bowel Movements 0 Result Diagram: 06/27/16 0534 06/27/16 0534 Imaging Last Impressions Chest X-Ray 06/25/16 1204 Signed Impressions: Service Date/Time: Saturday, June 25, 2016 12:27 - CONCLUSION: Bilateral airspace disease with infiltrate noted in the right midlung and left base. Moderate cardiomegaly. AICD. Murali Mayo MD Objective Remarks GENERAL: Well-nourished, well-developed elderly female patient, in NAD. SKIN: No rashes, ecchymoses or lesions. Cool and dry. HEAD: Atraumatic. Normocephalic. No temporal or scalp tenderness. EYES: Pupils equal round and reactive. Extraocular motions intact. No scleral icterus. No injection or drainage. ENT: Nose without bleeding, purulent drainage or septal hematoma. Airway patent. NECK: Trachea midline. No JVD or lymphadenopathy. Supple, nontender, no meningeal signs. CARDIOVASCULAR: Irregular rate and rhythm without murmurs, gallops, or rubs. RESPIRATORY: Clear to auscultation. Mild crackles at left base, otherwise clear. Breath sounds equal bilaterally. GASTROINTESTINAL: Abdomen soft, non-tender, nondistended. No hepato-splenomegaly , or palpable masses. No guarding. MUSCULOSKELETAL: Extremities without clubbing, cyanosis, or edema. No calf tenderness. Negative Homans sign bilaterally. NEUROLOGICAL: Awake and alert. Cranial nerves II through XII intact. Motor and sensory grossly within normal limits. Five out of 5 muscle strength in all muscle groups. Normal speech. A/P Assessment and Plan 76-year-old female with history of atrial fibrillation on Xarelto, CHF with pacer/AICD, anxiety/depression, HTN, HLD, GERD, presents with a 1.5 week history of weakness, shortness of breath, and occasional palpitations. Atrial Fibrillation with RVR: Systolic CHF with low EF if 15-20 %, diffuse hypokinesis, MV with severe regurgitation HR in 130s upon arrival, s/p IV metoprolol 5mg x2, aspirin, and IV zofran. Heart rate now in low 100s. Monitor on telemetry. Admit to [facility]. Restart patient' s Eliquis. Cardizem drip prn if HR >110. Consult patient's methods and procedures analyst Dr. Benjamin. Seen by Dr Benjamin recommends myoview stress test 06/27. Per Dr Ng if normal stress test patient can be DC today. Noted drop in HGB 06/27. Hold Plavix per cardiology. Work up for anemia. Check FOBT, iron panel, ferritin, folate, B12. ECHO reviewed EF if 15-20 %, diffuse hypokinesis, MV with severe regurgitation Elevated Troponin with suspect new LBBB: No specific chest pains however with severe nausea, palpitations. Troponins 0.07 x2, EKG with suspected new LBBB with ST depression V5-6, compared to prior EKG from 2008. Checking 3rd set of cardiac enzymes/EKGs. Give aspirin. Restart patient's home meds when verified by RN. Consult cardiology. Plan for stress test, if normal can be Dc later today Weakness/Fatigue: suspect related to above. Check echocardiogram with hx of CHF. Consult PT. Patient may benefit from rehab. Hypertension/Hyperlipidemia: chronic, continue patient's home meds once verified. Monitor BP, adjust antihypertensives as needed. Constipation: laxatives.stool softeners. CHF: chronic, does not appear to be in exacerbation. Continue patient's home meds once verified. Check echo. DVT Prophylaxis: Eliquis Code Status Full Code Discussed Condition With Patient, nurse Shakira Ma MD Jun 27, 2016 07:34
[2016-06-27] MEDS ORDERED: DIGOXIN 0.125 MG TAB PO SCH (08:00)
[2016-06-27 08:56] LABS: FERRITIN 196 NG/ML (8-252)
[2016-06-27] MEDS ORDERED: CARVEDILOL 12.5 MG TAB PO SCH (09:00)
[2016-06-27] MEDS ORDERED: LISINOPRIL 5 MG TAB PO SCH (09:00)
[2016-06-27] MEDS ORDERED: CARV12.5 PO (11:15)
[2016-06-27] MEDS ORDERED: DOCUSATE SODIUM 50 MG/SENNA 8.6 MG TAB PO ONE (11:15)
[2016-06-27] MEDS ORDERED: DOCUSATE SODIUM 50 MG/SENNA 8.6 MG TAB PO PRN (11:15)
[2016-06-27] MEDS ORDERED: PROM25TA5 PO (11:15)
--- NOTE | 2016-06-27 11:17 | HHI.DS ---
Discharge Summary Admission Date Jun 25, 2016 at 15:01 Discharge Date: Jun 27, 2016 Admitting Diagnosis Afib/RVR, Elevated Troponin, Fatigue (1) Atrial fibrillation with RVR ICD Code: I48.91 Diagnosis: Principal (2) Anemia ICD Code: D64.9 Diagnosis: Principal (3) Systolic CHF ICD Code: I50.20 Diagnosis: Principal (4) CAD (coronary artery disease) ICD Code: I25.10 Diagnosis: Principal (5) Cardiac defibrillator in place ICD Code: Z95.810 Diagnosis: Principal (6) Elevated troponin I level ICD Code: R74.8 Diagnosis: Secondary Procedures none Brief History - From Admission 76-year-old female with history of atrial fibrillation on Xarelto, CHF with pacer/AICD, anxiety/depression, HTN, HLD, GERD, presents with a 1.5 week history of weakness, shortness of breath, and occasional palpitations. The patient reports she has felt severely weak and fatigued over the past 1.5 week; states she has mostly stayed in bed because of this. She can barely ambulate around the house without becoming dyspneic, relieved by rest. She has also been experiencing palpitations, especially after exertion and when she lies down at night. Denies chest pain. She has also been very nauseous, no vomiting, but with decreased appetite and oral intake. Denies any fevers/chills or cough. Denies any orthopnea, lower extremity edema, or recent weight gain. Her plating machine operator is Dr. Benjamin. She was recently switched from Eliquis to Xarelto 1.5weeks ago because of the nausea however it has not improved. Upon arrival, patient noted to be in atrial fibrillation with RVR, rate 130s. She was given IV metoprolol 5mg x2, aspirin, and IV zofran. Heart rate now in low 100s. ER physician discussed with the patient's plating machine operator Dr. Benjamin who recommended admission to [facility]. CBC/BMP: 06/27/16 0534 06/27/16 0534 Significant Findings Laboratory Tests Test 06/25/16 06/25/16 06/25/1614/17 12:10 15:25 20:30 06:05 Red Blood Count 3.83 MIL/MM3 3.62 MIL/MM3 (4.00-5.30) (4.00-5.30) Hemoglobin 11.2 GM/DL 10.5 GM/DL (11.6-15.3) (11.6-15.3) Hematocrit 33.5 % 31.9 % (35.0-46.0) (35.0-46.0) Neutrophils (%) (Auto) 81.8 % 74.5 % (16.0-70.0) (16.0-70.0) Lymphocytes (%) (Auto) 7.1 % (9.0-44.0) Monocytes (%) (Auto) 10.2 % 13.2 % (0.0-8.0) (0.0-8.0) Lymphocytes # (Auto) 0.6 TH/MM3 (1.0-4.8) Prothrombin Time 16.7 SEC (9.8-11.6) Activated Partial 31.8 SEC Thromboplast Time (24.3-30.1) Sodium Level 135 MEQ/L (136-145) Blood Urea Nitrogen 25 MG/DL (7-18) 25 MG/DL (7-18) Creatinine 1.25 MG/DL 1.20 MG/DL (0.50-1.00) (0.50-1.00) Estimat Glomerular Filtration 41 ML/MIN (>89) 43 ML/MIN (>89) Rate Random Glucose 154 MG/DL 109 MG/DL (74-106) (74-106) Troponin I 0.07 NG/ML 0.07 NG/ML 0.06 NG/ML (0.02-0.05) (0.02-0.05) (0.02-0.05) B-Type Natriuretic Peptide 819 PG/ML (0-100) Platelet Count 147 TH/MM3 (150-450) Monocytes # (Auto) 1.1 TH/MM3 (0-0.9) Test 06/27/16 05:34 Red Blood Count 3.39 MIL/MM3 (4.00-5.30) Hemoglobin 9.9 GM/DL (11.6-15.3) Hematocrit 29.8 % (35.0-46.0) Platelet Count 136 TH/MM3 (150-450) Neutrophils (%) (Auto) 84.1 % (16.0-70.0) Lymphocytes (%) (Auto) 4.7 % (9.0-44.0) Monocytes (%) (Auto) 10.5 % (0.0-8.0) Neutrophils # (Auto) 8.4 TH/MM3 (1.8-7.7) Lymphocytes # (Auto) 0.5 TH/MM3 (1.0-4.8) Monocytes # (Auto) 1.1 TH/MM3 (0-0.9) Blood Urea Nitrogen 23 MG/DL (7-18) Creatinine 1.01 MG/DL (0.50-1.00) Estimat Glomerular Filtration 53 ML/MIN (>89) Rate Random Glucose 110 MG/DL (74-106) Iron Level 34 MCG/DL (50-170) Vitamin B12 Level 1720 PG/ML (193-986) Folate GREATER THAN 20.0 NG/ML (3.1-17.5) Imaging Last Impressions Chest X-Ray 06/25/16 1204 Signed Impressions: Service Date/Time: Saturday, June 25, 2016 12:27 - CONCLUSION: Bilateral airspace disease with infiltrate noted in the right midlung and left base. Moderate cardiomegaly. AICD. Murali Mayo MD PE at Discharge GENERAL: Well-nourished, well-developed elderly female patient, in NAD. SKIN: No rashes, ecchymoses or lesions. Cool and dry. HEAD: Atraumatic. Normocephalic. No temporal or scalp tenderness. EYES: Pupils equal round and reactive. Extraocular motions intact. No scleral icterus. No injection or drainage. ENT: Nose without bleeding, purulent drainage or septal hematoma. Airway patent. NECK: Trachea midline. No JVD or lymphadenopathy. Supple, nontender, no meningeal signs. CARDIOVASCULAR: Irregular rate and rhythm without murmurs, gallops, or rubs. RESPIRATORY: Clear to auscultation. Mild crackles at left base, otherwise clear. Breath sounds equal bilaterally. GASTROINTESTINAL: Abdomen soft, non-tender, nondistended. No hepato-splenomegaly , or palpable masses. No guarding. MUSCULOSKELETAL: Extremities without clubbing, cyanosis, or edema. No calf tenderness. Negative Homans sign bilaterally. NEUROLOGICAL: Awake and alert. Cranial nerves II through XII intact. Motor and sensory grossly within normal limits. Five out of 5 muscle strength in all muscle groups. Normal speech. Hospital Course 76-year-old female with history of atrial fibrillation on Xarelto, CHF with pacer/AICD, anxiety/depression, HTN, HLD, GERD, presents with a 1.5 week history of weakness, shortness of breath, and occasional palpitations. Atrial Fibrillation with RVR: Systolic CHF with low EF if 15-20 %, diffuse hypokinesis, MV with severe regurgitation HR in 130s upon arrival, s/p IV metoprolol 5mg x2, aspirin, and IV zofran. Heart rate now in low 100s. Monitor on telemetry. Admit to [facility]. Restart patient' s Eliquis. Cardizem drip prn if HR >110. Consult patient's plating machine operator Dr. Benjamin. Seen by Dr Benjamin recommends myoview stress test 06/27. Per Dr Ng if normal stress test patient can be DC today. Noted drop in HGB 06/27. Hold Plavix per cardiology. Work up for anemia. Check FOBT, iron panel, ferritin, folate, B12. ECHO reviewed EF if 15-20 %, diffuse hypokinesis, MV with severe regurgitation Elevated Troponin with suspect new LBBB: No specific chest pains however with severe nausea, palpitations. Troponins 0.07 x2, EKG with suspected new LBBB with ST depression V5-6, compared to prior EKG from 2009. Checking 3rd set of cardiac enzymes/EKGs. Give aspirin. Restart patient's home meds when verified by RN. Consult cardiology.Had stress test, normal. Cleared by cardiology for DC. DC plavix , pradaxa per cardiology Dr gN recommendations. Hold anticoagulation at DC as noted with anemia patient to followup as OP with PCP and cardio as OP. Patient has h/o iron deficiency anemia and says she was not taking iron pills 2/ 2 feeling nauseated. Weakness/Fatigue: suspect related to above. Check echocardiogram with hx of CHF. Consult PT. Patient may benefit from rehab. Hypertension/Hyperlipidemia: chronic, continue patient's home meds once verified. Monitor BP, adjust antihypertensives as needed. Constipation: laxatives.stool softeners. CHF: chronic, does not appear to be in exacerbation. Continue patient's home meds once verified. Check echo. DVT Prophylaxis: SCD/TEDs. Improved, cleared by cardio for DC to follow up as OP with PCP and consultants. Pt Condition on Discharge: Stable Discharge Disposition: Disch w/ Home Health Serv Discharge Time: > 30 minutes Discharge Instructions DIET: Follow Instructions for: Heart Healthy Diet Activities you can perform: Regular-No Restrictions Follow up Referrals: Cardiology - 1 Week with Fernando Benjamin MD PCP Follow-up - 3-5 Days SNF/LONG-TERM/HH with [facility] New Medications: Bedside Commode (Bedside Commode) 1 Mis Mis 1 EA .ROUTE DIRECTED #1 EA Docusate Sodium (Colace) 100 Mg Cap 100 MG PO BID Constipation #60 Ref 0 CAP Ferrous Sulfate (Ferrous Sulfate) 325 Mg Tab 325 MG PO DAILY Nutritional Supplement #30 Ref 0 TAB Promethazine (Phenergan) 25 Mg Tab 25 MG PO BID PRN Nausea/Vomiting #10 Ref 0 TAB Walker with Front Wheels (Walker with Front Wheels) 1 Mis Mis 1 EA .ROUTE DIRECTED #1 Ref 0 EA Carvedilol (Coreg) 12.5 Mg Tab 25 MG PO Q12HR Blood Pressure Management #60 TAB Digoxin (Digoxin) 0.125 Mg Tab 0.125 MG PO DAILY@08 afib #30 TAB Continued Medications: Furosemide (Furosemide) 20 Mg Tab 10 MG PO DAILY #60 Ref 0 TAB Lisinopril (Lisinopril) 5 Mg Tab 5 MG PO DAILY Blood Pressure Management #30 Ref 0 TAB Omeprazole (Prilosec) 20 Mg Cap 20 MG PO DAILY #30 Ref 0 CAP Paroxetine (Paxil) 10 Mg Tab 10 MG PO DAILY #30 Ref 0 TAB Potassium Chloride ER (Potassium Chloride ER) 10 Meq Cap 10 MEQ PO BID Electrolyte Replacement #60 Ref 0 CAP Simvastatin (Zocor) 20 Mg Tab 20 MG PO DAILY Cholesterol Management #30 Ref 0 TAB Discontinued Medications: Carvedilol (Carvedilol) 3.125 Mg Tab 3.125 MG PO DAILY #60 Ref 0 TAB Shakira Ma MD Jun 27, 2016 11:17
[2016-06-27] MEDS ORDERED: COLA100C3 PO (11:21)
[2016-06-27] MEDS ORDERED: DIGO0.12 PO (11:21)
[2016-06-27] MEDS ORDERED: REGADENOSON INJ 0.4 MG/5 ML SYR ONE (13:28)
[2016-06-27] MEDS ORDERED: WALKER WHEELS/F1 MIS (14:18)
[2016-06-27] MEDS ORDERED: BEDSIDE COMMODE1 MI1 (14:18)
--- NOTE | 2016-06-27 14:19 | HHI.FF ---
Face to Face Verification Diagnosis: (1) CAD (coronary artery disease) (2) Cardiac defibrillator in place (3) Atrial fibrillation with RVR (4) Systolic CHF (5) Elevated troponin I level (6) Anemia Physical Therapy Order: Evaluate and Treat Home Health Nursing Order: Medical education Signs/symptoms of disease process CHF education Medication education-adverse effect Nursing assessment with vital signs I have seen patient Apolinar Lepe on 06/27/16. My clinical findings support the need for the requested home health care services because: Ltd mobility - disease progression Patient has SOB I certify that my clinical findings support that this patient is homebound because: Post-op weakness Shakira Ma MD Jun 27, 2016 14:19
[2016-06-27] MEDS ORDERED: FERR325T PO (14:20)
--- NOTE | 2016-06-27 15:31 | RADRPT ---
EXAM DATE/TIME: 06/27/2016 13:14 [place] COMPARISON: No previous studies available for comparison. INDICATIONS : Venticular tachycardia and weakness for two weeks. Atrial fibrillation. Coronary artery disease. DOSE: 25.5 mCi Tc99m Myoview at stress. 8.7 mCi Tc99m Myoview at rest. 0.4 mg Lexiscan STRESS SYMPTOMS: Shortness of breath. EJECTION FRACTION: 19% MEDICAL HISTORY : Hypertension. Smoking history. SURGICAL HISTORY : Cholecystectomy. Pacemaker. Hysterectomy. ENCOUNTER: Initial ACUITY: 2 weeks PAIN SCALE: 3/10 LOCATION: Bilateral chest TECHNIQUE: The patient underwent pharmacologic stress with infusion of prescribed dose. Continuous ECG tracing was monitored during stress. Gated SPECT imaging was performed after stress and conventional SPECT i maging was performed at rest. The examination was performed on a SPECT/CT scanner, both attenuation and non-corrected datasets were reviewed. FINDINGS: DISTRIBUTION: The maximum perfused segment at stress is in the lateral wall. PERFUSION STUDY: No areas of ischemia are seen. There is decreased activity at the inferior and septal martinez that appe ars matched. GATED STUDY: There is global hypokinesis and a reduced ejection fraction. CONCLUSION: 1. No ischemia is seen. 2. Global hypokinesis with an ejection fraction of 19%. RISK CATEGORY: Intermediate (1-3% Annual Mortality Rate) Patrick Walter MD on June 27, 2016 at 15:21 Board Certified Radiologist. This report was verified electronically.
[2016-06-28] MEDS ORDERED: DIGOXIN 0.125 MG TAB PO SCH (09:00)
== END 2016-06-27 17:35 | disposition home health service (06) | DRG 309 ==
LOC: NEPC 11:42 → NEDH 15:01 → HCIN 19:26
PROVIDERS: ADMIT Hospitalist; ATTEND Hospitalist
DX: I48.91 Unspecified atrial fibrillation (principal); I50.22 Chronic systolic (congestive) heart failure; I47.2 Ventricular tachycardia; I11.0 Hypertensive heart disease with heart failure; I25.5 Ischemic cardiomyopathy; D64.9 Anemia, unspecified; I25.10 Atherosclerotic heart disease of native coronary artery without angina pectoris; M17.0 Bilateral primary osteoarthritis of knee; I34.0 Nonrheumatic mitral (valve) insufficiency; I44.7 Left bundle-branch block, unspecified; K21.9 Gastro-esophageal reflux disease without esophagitis; E78.5 Hyperlipidemia, unspecified; K59.00 Constipation, unspecified; Z79.01 Long term (current) use of anticoagulants; Z95.810 Presence of automatic (implantable) cardiac defibrillator; Z87.891 Personal history of nicotine dependence; Z95.5 Presence of coronary angioplasty implant and graft
CPT/HCPCS: 71010; 78452; 80048; 82550; 82607; 82728; 82746; 83540; 83690; 83735; 83880; 84484; 85025; 85610; 85730; 93005; 93017; 93306; 96361; 96374; 96375; 96376; A9502; J2405; J2785; J7040

== ENCOUNTER 2016-08-15 15:32 | Inpatient (IN) | payer OTHER, MEDICARE ==
[2016-08-15] VITALS (11 sets, daily range): BP systolic 150–171; BP diastolic 79–89; PULSE 64–81; RESP 16–24; TEMP 98.7; O2SAT 96–100
[~2016-08-15] VITALS: Ht 165.1 cm; Wt 58.7 kg
[~2016-08-15 15:32] MED LIST changes: +BEDSIDE COMMODE1 MI1; +CARV12.5 PO; -CARV3.125 PO; -CLOP75 PO; +COLA100C3 PO; +DIGO0.12 PO; +FERR325T PO; -FURO10S PO; +FURO20TA PO; +LISI-519 PO; -LORT5TAB PO; -OMEP20CA5 PO; -PARO10TA PO; +PAXI10TA2 PO; -POTA-243 PO; +POTA10CA PO; +PRIL20CA9 PO; -PRIN5TAB PO; +PROM25TA5 PO; -SIMV20 PO; +WALKER WHEELS/F1 MIS; +ZOCO20TA PO
[2016-08-15] MEDS ORDERED: ETOMIDATE 20 MG/10 ML VIAL ONE (15:36)
[2016-08-15] MEDS ORDERED: SUCCINYLCHOLINE CHLORIDE 200 MG/10 ML VIAL ONE (15:37)
[2016-08-15] MEDS ORDERED: PROPOFOL 500 MG/50 ML INJ 50 ML ONE (15:41)
--- NOTE | 2016-08-15 15:52 | PD ---
HPI Chief Complaint: AICD firing Time Seen by Provider: 15:44 Travel History International Travel<30 days: No Contact w/Intl Traveler<30days: No Traveled to known affect area: No History of Present Illness HPI The patient is a 76-year-old female who presents emergency department via EMS after her AICD fired several times prior to EMS arrival. EMS states when they arrived the patient noted her AICD had fired several times. EMS states they placed the patient on cardiac telemetry monitoring, the patient had a sinus rhythm that varied between 60 and 100, with no obvious arrhythmias, however, they do note her AICD fired several times. EMS administered 2 mg of Ativan on scene, they then called medical control and spoke with Dr. Boyle, who stated the patient did have 2 more milligrams of Ativan intravenously for her discomfort secondary to the AICD firing. Upon arrival nursing staff states that the patient was awake and alert, however, after they transferred her from the stretcher to the bed, the patient went apneic, stopped talking, and lost pulses. Nursing staff immediately started CPR, when I entered the room, the patient had grunting respirations with significant salivation, however, pulses were present. The patient is unable to provide any further information secondary to her current clinical condition. PFSH Past Medical History Hx Anticoagulant Therapy: Yes (XARELTO) Arthritis: Yes (bilateral knees) Asthma: No Atrial Fibrillation: Yes Autoimmune Disease: No Blood Disorders: No Anxiety: No Depression: Yes Heart Rhythm Problems: Yes (V-TACH) Cancer: No Cardiomyopathy: Yes Cardiovascular Problems: Yes High Cholesterol: No Chest Pain: No Congestive Heart Failure: No COPD: No Cerebrovascular Accident: No Coronary Artery Disease: Yes Diabetes: No Diminished Hearing: No Endocrine: Yes Gastrointestinal Disorders: Yes GERD: Yes Glaucoma: No Genitourinary: No Headaches: No Hepatitis: No Hiatal Hernia: Yes Hypertension: Yes Immune Disorder: No Kidney Stones: No Musculoskeletal: Yes Neurologic: No Psychiatric: Yes Reproductive: No Respiratory: Yes Migraines: No Myocardial Infarction: No Renal Failure: No Seizures: No Sickle Cell Disease: No Sleep Apnea: No Thyroid Disease: Yes (enlarged thyroid with nodules) Past Surgical History AICD: Yes Appendectomy: Yes Arteriovenous Shunt: No Cardiac Surgery: No (pacemaker) Cholecystectomy: Yes Ear Surgery: No Endocrine Surgery: No Eye Surgery: No Genitourinary Surgery: No Gynecologic Surgery: Yes (hysterectomy) Hysterectomy: Yes Insulin Pump: No Joint Replacement: No Oral Surgery: No Pacemaker: Yes Thoracic Surgery: Yes (GALL BLADDER) Other Surgery: Yes Social History Alcohol Use: No Tobacco Use: No (QUIT 15 YEARS AGO) Substance Use: No Allergies-Medications (Allergen,Severity, Reaction): Coded Allergies: Codeine (Verified Allergy, Severe, BLINDNESS, PALPITATIONS, DIAPHORESIS, ) Reported Meds & Prescriptions Reported Meds & Active Scripts Active Ferrous Sulfate 325 Mg Tab 325 Mg PO DAILY Colace (Docusate Sodium) 100 Mg Cap 100 Mg PO BID Digoxin 0.125 Mg Tab 0.125 Mg PO DAILY@08 Phenergan (Promethazine HCl) 25 Mg Tab 25 Mg PO BID PRN Coreg (Carvedilol) 12.5 Mg Tab 25 Mg PO Q12HR Reported Aspirin 81 Mg Tabdr 81 Mg PO DAILY Xarelto (Rivaroxaban) 20 Mg Tab 20 Mg PO DAILY Zocor (Simvastatin) 20 Mg Tab 20 Mg PO DAILY Potassium Chloride ER (Potassium Chloride) 10 Meq Cap 10 Meq PO BID Paxil (Paroxetine HCl) 10 Mg Tab 20 Mg PO DAILY Prilosec (Omeprazole) 20 Mg Cap 20 Mg PO DAILY Lisinopril 5 Mg Tab 5 Mg PO DAILY Furosemide 20 Mg Tab 10 Mg PO DAILY Review of Systems ROS Limitations: Intubated Except as stated in HPI: all other systems reviewed are Neg Cardiovascular: Positive: Other (multiple AICD firings) Physical Exam Narrative GENERAL: 76-year-old female with grunting respirations, hypersalivation, and altered mental status when I first enter the room. SKIN: Focused skin assessment: Slightly clammy. HEAD: Atraumatic. Normocephalic. EYES: Pupils equal and round. 3 mm bilateral and reactive. ENT: No nasal bleeding or discharge. Upper and lower dentures in place. NECK: Trachea midline. Initial JVD.. CARDIOVASCULAR: Regular rate and rhythm. No murmur appreciated. AICD in place left upper chest wall with multiple obvious firings. RESPIRATORY: No accessory muscle use. Clear to auscultation. Breath sounds equal bilaterally. GASTROINTESTINAL: Abdomen soft, non-tender, nondistended. No rebound tenderness. MUSCULOSKELETAL: No obvious deformities. No clubbing. No cyanosis. No edema. NEUROLOGICAL: Unable to open eyes, grunting respirations and sounds, does not follow commands. PSYCHIATRIC: Unable to assess. Data Data Last Documented VS Vital Signs Date Time Temp Pulse Resp B/P Pulse Ox O2 Delivery O2 Flow Rate FiO2 08/15/16 17:34 71 154/88 100 Ventilator 08/15/16 15:46 24 Orders Etomidate Inj (Amidate Inj) (08/15/16 15:36) Succinylcholine Inj (Quelicin Inj) (08/15/16 15:37) Propofol 500 Mg/50 Ml Inj (Diprivan 500 (08/15/16 15:41) Electrocardiogram (08/15/16 15:59) B-Type Natriuretic Peptide (08/15/16 15:59) Ckmb (Isoenzyme) Profile (08/15/16 15:59) Complete Blood Count With Diff (08/15/16 15:59) Comprehensive Metabolic Panel (08/15/16 15:59) Magnesium (Mg) (08/15/16 15:59) Prothrombin Time / Inr (Pt) (08/15/16 15:59) Act Partial Throm Time (Ptt) (08/15/16 15:59) Troponin I (08/15/16 15:59) Chest, Single Ap (08/15/16 15:59) Ecg Monitoring (08/15/16 15:59) Bilateral Bp Monitoring (08/15/16 15:59) Iv Access Insert/Monitor (08/15/16 15:59) Oximetry (08/15/16 15:59) Oxygen Administration (08/15/16 15:59) Sodium Chloride 0.9% Flush (Ns Flush) (08/15/16 16:00) Sodium Chlorid 0.9% 500 Ml Inj (Ns 500 M (08/15/16 16:00) Propofol 1000 Mg/100 Ml Inj (Diprivan 10 (08/15/16 16:00) ^ Infusion (08/15/16 15:59) RASS (08/15/16 15:59) Neurological Rass Scale NARINDER.Q2H (08/15/16 15:59) Etomidate Inj (Amidate Inj) (08/15/16 16:00) Succinylcholine Inj (Quelicin Inj) (08/15/16 16:00) Digoxin (08/15/16 15:59) Arterial Blood Gas (Abg) (08/15/16 16:36) CKMB (08/15/16 15:30) CKMB% (08/15/16 15:30) Aspirin Supp (Aspirin Supp) (08/15/16 17:30) Troponin I (08/16/16 07:00) Admit Order (Ed Use Only) (08/15/16 17:51) Labs Laboratory Tests Test 08/15/16 08/15/16 15:30 16:36 White Blood Count 7.8 TH/MM3 Red Blood Count 4.11 MIL/MM3 Hemoglobin 11.5 GM/DL Hematocrit 35.2 % Mean Corpuscular Volume 85.6 FL Mean Corpuscular Hemoglobin 27.8 PG Mean Corpuscular Hemoglobin 32.5 % Concent Red Cell Distribution Width 15.6 % Platelet Count 175 TH/MM3 Mean Platelet Volume 7.9 FL Neutrophils (%) (Auto) 40.7 % Lymphocytes (%) (Auto) 46.7 % Monocytes (%) (Auto) 9.7 % Eosinophils (%) (Auto) 2.2 % Basophils (%) (Auto) 0.7 % Neutrophils # (Auto) 3.2 TH/MM3 Lymphocytes # (Auto) 3.6 TH/MM3 Monocytes # (Auto) 0.8 TH/MM3 Eosinophils # (Auto) 0.2 TH/MM3 Basophils # (Auto) 0.1 TH/MM3 CBC Comment DIFF FINAL Differential Comment Prothrombin Time 13.6 SEC Prothromb Time International 1.2 RATIO Ratio Activated Partial 31.1 SEC Thromboplast Time Sodium Level 139 MEQ/L Potassium Level 4.0 MEQ/L Chloride Level 102 MEQ/L Carbon Dioxide Level 27.4 MEQ/L Anion Gap 10 MEQ/L Blood Urea Nitrogen 12 MG/DL Creatinine 1.02 MG/DL Estimat Glomerular Filtration 52 ML/MIN Rate Random Glucose 113 MG/DL Calcium Level 8.1 MG/DL Magnesium Level 2.2 MG/DL Total Bilirubin 0.4 MG/DL Aspartate Amino Transf 22 U/L (AST/SGOT) Alanine Aminotransferase 19 U/L (ALT/SGPT) Alkaline Phosphatase 108 U/L Total Creatine Kinase 107 U/L Creatine Kinase MB 1.6 NG/ML Troponin I 0.29 NG/ML Total Protein 7.1 GM/DL Albumin 3.4 GM/DL Digoxin Level 0.8 NG/ML Blood Gas Puncture Site RT BRACHIAL Blood Gas Patient Temperature 98.6 Blood Gas HCO3 23 mmol/L Blood Gas Base Excess -0.3 mmol/L Blood Gas Oxygen Saturation 99 % Arterial Blood pH 7.49 Arterial Blood Partial 30 mmHg Pressure CO2 Arterial Blood Partial 499 mmHG Pressure O2 Arterial Blood Oxygen Content 16.3 Vol % Arterial Blood 0.9 % Carboxyhemoglobin Arterial Blood Methemoglobin 0.5 % Blood Gas Hemoglobin 10.8 G/DL Oxygen Delivery Device VENTILATOR Blood Gas Ventilator Setting AC/16/500/PEEP+5 Blood Gas Inspired Oxygen 100 % [facility] Medical Decision Making Medical Screen Exam Complete: Yes Emergency Medical Condition: Yes Medical Record Reviewed: Yes Interpretation(s) EKG reveals normal sinus rhythm with first-degree AV block, MI 213 ms. Left bundle-branch block. Laboratory Tests Test 08/15/16 08/15/16 15:30 16:36 White Blood Count 7.8 TH/MM3 Red Blood Count 4.11 MIL/MM3 Hemoglobin 11.5 GM/DL Hematocrit 35.2 % Mean Corpuscular Volume 85.6 FL Mean Corpuscular Hemoglobin 27.8 PG Mean Corpuscular Hemoglobin 32.5 % Concent Red Cell Distribution Width 15.6 % Platelet Count 175 TH/MM3 Mean Platelet Volume 7.9 FL Neutrophils (%) (Auto) 40.7 % Lymphocytes (%) (Auto) 46.7 % Monocytes (%) (Auto) 9.7 % Eosinophils (%) (Auto) 2.2 % Basophils (%) (Auto) 0.7 % Neutrophils # (Auto) 3.2 TH/MM3 Lymphocytes # (Auto) 3.6 TH/MM3 Monocytes # (Auto) 0.8 TH/MM3 Eosinophils # (Auto) 0.2 TH/MM3 Basophils # (Auto) 0.1 TH/MM3 CBC Comment DIFF FINAL Differential Comment Prothrombin Time 13.6 SEC Prothromb Time International 1.2 RATIO Ratio Activated Partial 31.1 SEC Thromboplast Time Sodium Level 139 MEQ/L Potassium Level 4.0 MEQ/L Chloride Level 102 MEQ/L Carbon Dioxide Level 27.4 MEQ/L Anion Gap 10 MEQ/L Blood Urea Nitrogen 12 MG/DL Creatinine 1.02 MG/DL Estimat Glomerular Filtration 52 ML/MIN Rate Random Glucose 113 MG/DL Calcium Level 8.1 MG/DL Magnesium Level 2.2 MG/DL Total Bilirubin 0.4 MG/DL Aspartate Amino Transf 22 U/L (AST/SGOT) Alanine Aminotransferase 19 U/L (ALT/SGPT) Alkaline Phosphatase 108 U/L Total Creatine Kinase 107 U/L Troponin I 0.29 NG/ML Total Protein 7.1 GM/DL Albumin 3.4 GM/DL Digoxin Level 0.8 NG/ML Blood Gas Puncture Site RT BRACHIAL Blood Gas Patient Temperature 98.6 Blood Gas HCO3 23 mmol/L Blood Gas Base Excess -0.3 mmol/L Blood Gas Oxygen Saturation 99 % Arterial Blood pH 7.49 Arterial Blood Partial 30 mmHg Pressure CO2 Arterial Blood Partial 499 mmHG Pressure O2 Arterial Blood Oxygen Content 16.3 Vol % Arterial Blood 0.9 % Carboxyhemoglobin Arterial Blood Methemoglobin 0.5 % Blood Gas Hemoglobin 10.8 G/DL Oxygen Delivery Device VENTILATOR Blood Gas Ventilator Setting AC/16/500/PEEP+5 Blood Gas Inspired Oxygen 100 % Chest x-ray reveals endotracheal tube 1 cm above the jony. Left subclavian pacemaker and nasogastric tube are in good positions. Cardiomegaly. No acute focal pulmonary infiltrate or pulmonary vascular congestion. Differential Diagnosis Differential diagnosis includes arrhythmia, AICD malfunction, hyperkalemia, hypokalemia, STEMI, pulmonary embolism. Narrative Course IV was established, labs are drawn and sent, the patient was placed on cardiac telemetry monitoring and continuous pulse oximetry monitoring. According to nursing staff the patient went apneic and lost pulses while being transferred from the stretcher to the bed. CPR was initiated for 30 seconds and the patient regained agonal respirations and palpable pulses, no medications were administered. The patient was intubated using rapid sequence intubation, to and succinylcholine, to protect the patient's airway with her grunting respirations. The patient's AICD continue to fire, there is no obvious arrhythmias on cardiac telemetry monitoring. I discussed the patient with her design editor, Dr. Monsivais, who recommends to have her AICD maker interrogate the pacemaker/AICD and if he continues to fire, to place a magnet over the affected area. Chest x-ray was obtained. [facility] was called to interrogate the patient's AICD. The patient was placed on propofol for sedation. I reviewed the patient's med list, she takes Coreg, digoxin, Colace, ferrous sulfate, promethazine, furosemide, lisinopril, Paxil, potassium, simvastatin, Xarelto, and baby aspirin. The patient's troponin is elevated 0.29, therefore, patient was administered aspirin 300 mg MI. The on-call ferry engineer was paged for admission. The design editor, Dr. Nettles, evaluated the patient in the emergency department. The patient was evaluated by the [employer] software sales representative. The patient was shocked 72 times secondary to "artifact", there is no evidence of arrhythmias. Therefore, the software sales representative discussed the patient with Dr. Nettles, it was agreed the patient's pacemaker will/AICD would be turned off and the patient will be placed on monitoring with pacer pads if needed. However, patient appears to be in a left bundle branch block with a rate in the 70s and does not require current pacing. The patient will be admitted to the intensive care unit. I discussed the patient with Dr. Davidson who agrees with admission. Critical Care Narrative Aggregate critical care time was 40 minutes. Time to perform other separately billable procedures was not included in the critical care time. My time did not include minutes spent treating any other patients simultaneously or on activities that did not directly contribute to the patient's treatment. The services I provided to this patient were to treat and/or prevent clinically significant deterioration that could result in: Anoxia, hypoxia, aspiration, arrhythmia, sudden . I provided critical care services requiring my management, as noted below: Chart data review, documentation time, medication orders and management, vital sign assessments/reviewing monitor data, ordering and reviewing lab tests, ordering and interpreting/reviewing x-rays and diagnostic studies, care of the patient and discussion of the patient with the admitting physicians. Procedures Procedure Narrative INTUBATION: The patient was put in optimal position for the procedure. Rapid sequence intubation was initiated by me using 20 milligrams of etomidate IV and 100 milligrams of succinylcholine IV. The patient was intubated with a 8.0 cuffed endotracheal tube. Tube placement was confirmed by visualization of the tube and balloon passing through the cords, capnometry and subsequent chest x- ray. Breath sounds were equal and well aerated bilaterally postintubation. No breath sounds over stomach. Patient tolerated procedure well. Physician Communication Physician Communication The on-call ferry engineer was paged for admission. I discussed the patient with Dr. Davidson who agrees with admission. Diagnosis Primary Impression: Cardiac defibrillator in place Additional Impression: Elevated troponin I level Admitting Information Admitting Physician Requests: Admit Condition: Serious Juan Cash MD August 15, 2016 15:52
[2016-08-15] MEDS ORDERED: ETOMIDATE 20 MG/10 ML VIAL IV PUSH ONE (16:00)
[2016-08-15] MEDS ORDERED: PROPOFOL 1000 MG/100 ML INJ 100 ML IV SCH (16:00)
[2016-08-15] MEDS ORDERED: SODIUM CHLORID 0.9% 500 ML INJ 500 ML IV ONE (16:00)
[2016-08-15] MEDS ORDERED: SODIUM CHLORIDE 0.9% FLUSH 10 ML FLUSH IVF PRN (16:00)
[2016-08-15] MEDS ORDERED: SUCCINYLCHOLINE CHLORIDE 200 MG/10 ML VIAL IV PUSH ONE (16:00)
[2016-08-15] MEDS ORDERED: XARE20TA PO (16:37)
[2016-08-15] MEDS ORDERED: ASPI1TAB69 PO (16:37)
[2016-08-15 16:45] LABS: AUTOMATED NEUTROPHIL # 3.2 TH/MM3 (1.8-7.7); BASOPHIL # 0.1 TH/MM3 (0-0.2); BASOPHIL % 0.7 % (0.0-2.0); EOSINOPHIL # 0.2 TH/MM3 (0-0.4); EOSINOPHIL % 2.2 % (0.0-4.0); HEMATOCRIT 35.2 % (35.0-46.0); HEMO FLAGS DIFF FINAL; LYMPH % 46.7 % (9.0-44.0); LYMPHOCYTE # 3.6 TH/MM3 (1.0-4.8); MEAN CELL VOLUME 85.6 FL (80.0-100.0); MEAN CORPUSCULAR HEMOGLOBIN 27.8 PG (27.0-34.0); MEAN CORPUSCULAR HGB CONC 32.5 % (32.0-36.0); MONO % 9.7 % (0.0-8.0); NEUT % 40.7 % (16.0-70.0); PLATELET COUNT 175 TH/MM3 (150-450); RED BLOOD COUNT 4.11 MIL/MM3 (4.00-5.30); RED CELL DISTRIBUTION WIDTH 15.6 % (11.6-17.2); WHITE BLOOD COUNT 7.8 TH/MM3 (4.0-11.0)
[2016-08-15 16:56] LABS: BLOOD GAS BASE EXCESS -0.3 mmol/L (-2-2); BLOOD GAS CARBOXYHEMOGLOBIN 0.9 % (0-4); BLOOD GAS HCO3 23 mmol/L (22-26); BLOOD GAS METHEMOGLOBIN 0.5 % (0-2); BLOOD GAS O2 HGB SATURATION 99 % (90-100); BLOOD GAS OXYGEN CONTENT 16.3 Vol % (12.0-20.0); BLOOD GAS PCO2 30 mmHg (38-42); BLOOD GAS PO2 499 mmHG (61-120); BLOOD GAS TOTAL HGB 10.8 G/DL (12.0-16.0); CRITICAL VALUE NO; OXYGEN DEVICE VENTILATOR; TEMP CORR TO 98.6
[2016-08-15 16:57] LABS: DRAW SITE RT BRACHIAL; FIO2 100 %; NUMBER OF ARTERIAL PUNCTURES 1; STAT NO; ULNAR PULSE PRESENT; VENT SETTINGS AC/16/500/PEEP+5
[2016-08-15 17:00] LABS: APTT (PATIENT) 31.1 SEC (24.3-30.1); INTERNATIONAL NORMALIZED RATIO 1.2 RATIO; PROTHROMBIN TIME - PATIENT 13.6 SEC (9.8-11.6)
[2016-08-15 17:02] LABS: ANION GAP 10 MEQ/L (5-15); AST (GOT) 22 U/L (15-37); BICARBONATE 27.4 MEQ/L (21.0-32.0); BLOOD UREA NITROGEN 12 MG/DL (7-18); CHLORIDE 102 MEQ/L (98-107); GLOMERULAR FILTRATION RATE 52 ML/MIN (>89); MAGNESIUM 2.2 MG/DL (1.5-2.5); SODIUM (NA) 139 MEQ/L (136-145)
--- NOTE | 2016-08-15 17:08 | RADRPT ---
EXAM DATE/TIME: 08/15/2016 16:21 [facility] COMPARISON: CHEST SINGLE AP, June 25, 2016, 12:27. INDICATIONS : Chest pain. Post intubation. MEDICAL HISTORY : None. SURGICAL HISTORY : Pacemaker. ENCOUNTER: Initial ACUITY: 1 day PAIN SCORE: Non-responsive. LOCATION: Bilateral chest FINDINGS: The endotracheal tube has its tip 1 cm above the jony. A left subclavian single lead pacemaker has its tip in the right heart. The heart is mildly prominent. The pulmonary vascular pattern is ceci l. The lungs are clear. No pneumothorax is noted. A nasogastric tube is coiled in the stomach. CONCLUSION: 1. Endotracheal tube 1 cm above the jony. 2. Left subclavian pacemaker and nasogastric tube are in good positions. 3. Cardiomegaly. 4. No acute focal pulmonary infiltrate or pulmonary vascular congestion. Ricardo Irizarry MD on August 15, 2016 at 17:01 Board Certified Radiologist. This report was verified electronically.
[2016-08-15 17:16] LABS: ALKALINE PHOSPHATASE 108 U/L (45-117); ALT (GPT) 19 U/L (10-53); CREATINE KINASE 107 U/L (26-192); DIGOXIN 0.8 NG/ML (0.8-2.0); TOTAL BILIRUBIN ADULT 0.4 MG/DL (0.2-1.0)
[2016-08-15 17:28] LABS: CKMB 1.6 NG/ML (0.5-3.6)
[2016-08-15] MEDS ORDERED: ASPIRIN 300 MG SUPP RECTAL ONE (17:30)
--- NOTE | 2016-08-15 19:00 | MB ---
cc: FERNANDO BENJAMIN MD, GLENN DATE OF CONSULTATION 08/15/16 REASON FOR CONSULTATION Multiple AICD shocks. HISTORY OF PRESENT ILLNESS The patient is a 76-year-old white female, followed in our office by Dr. Fernando Benjamin, with a history of coronary artery disease, severe dilated cardiomyopathy, paroxysmal atrial fibrillation, AICD implant 2008, hypertension who presented to the emergency room after multiple AICD shocks. Emergency services as well as our emergency room physician witnessed some of the shocks which occurred during times of apparent sinus rhythm. According to the patient's family. The patient has been feeling quite well lately without any complaints of chest pain, shortness of breath, dizziness, syncope, pedal edema, palpitations. Her appetite has been normal and she has been quite active. Here in the emergency room she was given a total of 4 milligrams of intravenous Ativan and she subsequently became unresponsive and apneic. Very brief CPR was administered and she was intubated and placed on mechanical ventilation. PAST MEDICAL HISTORY 1. Hypertension. 2. Coronary artery disease status post stent of the right coronary artery in its proximal to mid section 11/28/[address] Brittany Bull using two 3.5 mm bare metal stents. Her last heart catheterization was 01/27/2008 showing normal left main, 50% mid LAD, 50% proximal first diagonal, 60% ostial second diagonal, normal left circumflex, patent right coronary artery stents. 3. Severe dilated cardiomyopathy with ejection fraction of 15-20% by echo 06/26/2016. 4. Paroxysmal atrial fibrillation diagnosed about 2 months ago. 5. Status post single chamber [employer] AICD implant 05/06/2008. 6. Hyperlipidemia. PAST SURGICAL HISTORY 1. Appendectomy. 2. Cholecystectomy. 3. Hysterectomy. 4. AICD implant. MEDICATIONS Her cardiac medications at home: 1. Furosemide 10 milligrams daily. 2. Lisinopril 5 milligrams daily. 3. Potassium chloride 10 milliequivalents twice a day. 4. Simvastatin 20 milligrams daily. 5. Xarelto 20 milligrams daily. 6. Aspirin 81 milligrams daily. 7. Digoxin 0.125 milligrams daily. 8. Carvedilol 12.5 milligrams b.i.d. ALLERGIES CODEINE. FAMILY HISTORY Noncontributory. SOCIAL HISTORY The patient quit smoking 25 years ago. There is no history of alcohol abuse. REVIEW OF SYSTEMS Review of systems as in the history of present illness, otherwise, negative or currently unobtainable as the patient is intubated. PHYSICAL EXAMINATION VITAL SIGNS: On physical examination blood pressure 150/81 with a pulse of 64, respirations 24. GENERAL: In general she is a well-developed, well-nourished white female currently intubated and sedated. HEENT: On examination jugular venous pressure is normal. Carotid pulses are 2+ bilaterally and without bruits. CHEST: Examination of the chest reveals clear lung muir anteriorly. HEART: On cardiac examination she has a regular rhythm and rate without S3-S4 or murmur. ABDOMEN: On abdominal examination she has a soft abdomen. Bowel sounds are present. There is no definite hepatosplenomegaly. EXTREMITIES: Examination of the extremities reveals no clubbing, cyanosis or edema. CARDIOLOGY STUDIES EKG shows sinus rhythm, left bundle-branch block. LABORATORY DATA Laboratory data includes WBC 7.8, hemoglobin 11.5, platelets 175, potassium 4.0, BUN 12, creatinine 1.02. Troponin 0.29. IMAGING STUDIES Chest x-ray shows no acute disease. IMPRESSION Apparent inappropriate AICD shocks in this 76-year-old white female with a history of severe dilated cardiomyopathy, ejection fraction 20%, coronary artery disease, paroxysmal atrial fibrillation, hyperlipidemia, hypertension. Interrogation of her AICD by the [employer] sales representative supervisor is currently pending. It does appear that she was shocked during times of sinus rhythm. Magnified view of her chest x ray suggest there may be a split or fracture of the ICD lead near the insertion point with the generator. There does not appear to be a lead fracture near the clavicle. Overall, there is no definite evidence for acute coronary syndrome. The slightly elevated troponin level may be due to the multiple AICD shocks. The patient notes no recent complaints of angina. There is no evidence for acute congestive heart failure. She remains in sinus rhythm. Her thromboembolic risk with the paroxysmal atrial fibrillation is indeed high. RECOMMENDATIONS 1. Would continue her usual home cardiac medications including Xarelto. 2. Await the interrogation of the AICD by the [employer] sales representative supervisor. ADDENDUM: Interrogation of her AICD shows she was shocked 72 times for what appears to be ventricular lead noise. Will consult Dr. Tasha for possible extraction of her ventricular lead and placement of a new one. The family is concerned about leaving the lead in place with the risks of subclavian venous obstruction, left arm swelling. I did stress to them the high risk of a lead extraction procedure given her comorbid conditions, severe dilated cardiomyopathy. MD PABLO Ramos/SANDRA /5:34 PM /6:44 PM MTDMaria Elena
[2016-08-15] MEDS ORDERED: ONDANSETRON HCL 4 MG/2 ML VIAL IV PRN (19:15)
[2016-08-15] MEDS ORDERED: METOCLOPRAMIDE HCL 10 MG/2 ML VIAL IV PRN (19:15)
[2016-08-15] MEDS ORDERED: LORazepam 2 MG/ML VIAL IV PRN (19:15)
[2016-08-15] MEDS ORDERED: MISCELLANEOUS NURSING INFORMATION XX SCH (19:15)
[2016-08-15] MEDS ORDERED: SODIUM CHLORIDE 0.9% FLUSH 10 ML FLUSH PRN (19:15)
[2016-08-15] MEDS ORDERED: CHLORHEXIDINE GLUCONATE 2 % 1 PACK (2 CLOTHS) TOP PRN (19:15)
[2016-08-15] MEDS ORDERED: PROMETHAZINE HCL 25 MG TAB PO PRN (19:15)
[2016-08-15] MEDS ORDERED: RESP: ALBUTEROL 2.5 MG/IPRATROPIUM 0.5 MG NEB (PRN) INH (19:15)
[2016-08-15] MEDS ORDERED: MORPHINE SULFATE 4 MG/ML INJ IV PRN (19:15)
[2016-08-15] MEDS ORDERED: PILL SPLITTER OTHER PRN (19:30)
--- NOTE | 2016-08-15 19:34 | HHI.HP ---
HPI Service Critical Care Medicine Primary Care Physician Unknown Admission Diagnosis AICD malfunction, possible cardiac pulmonary arrest Diagnosis: Travel History International Travel<30 Days: No Contact w/Intl Traveler <30 Da: [place] Traveled to: unable to confirm Traveled to Known Affected Are: No History of Present Illness 76-year-old female presents to emergency department via EMS after her AICD fired 72 times prior to EMS arrival. EMS states when they arrived the patient noted her AICD had fired several times. EMS states they placed the patient on cardiac telemetry monitoring, the patient had a sinus rhythm that varied between 60 and 100, with no obvious arrhythmias, however, they do note her AICD fired several times. EMS administered 2 mg of Ativan on scene, they then called medical control and spoke with Dr. Boyle, who stated the patient did have 2 more milligrams of Ativan intravenously for her discomfort secondary to the AICD firing. Upon arrival nursing staff stated that the patient was awake and alert, however, after they transferred her from the stretcher to the bed, the patient went apneic, stopped talking, and felt to be pulseless. CPR was initiated by nursing staff however when the ER attending examined the patient she had a p palpable pulse. Intubated for airway protection as well as comfort due to malfunctioning AICD. Review of Systems ROS Unable to obtain patient is sedated and intubated Past Family Social History Allergies: Coded Allergies: Codeine (Verified Allergy, Severe, BLINDNESS, PALPITATIONS, DIAPHORESIS, ) Past Medical History Atrial fibrillation on Xarelto Coronary artery disease with 3 stents Congestive heart failure Hypertension Dyslipidemia Thyroid nodules Arthritis Past Surgical History Pacer/AICD Cardiac catheterization with 3 stents Cholecystectomy Hysterectomy Appendectomy Reported Medications Reported Meds & Active Scripts Active Ferrous Sulfate 325 Mg Tab 325 Mg PO DAILY Colace (Docusate Sodium) 100 Mg Cap 100 Mg PO BID Digoxin 0.125 Mg Tab 0.125 Mg PO DAILY@08 Phenergan (Promethazine HCl) 25 Mg Tab 25 Mg PO BID PRN Coreg (Carvedilol) 12.5 Mg Tab 25 Mg PO Q12HR Reported Aspirin 81 Mg Tabdr 81 Mg PO DAILY Xarelto (Rivaroxaban) 20 Mg Tab 20 Mg PO DAILY Zocor (Simvastatin) 20 Mg Tab 20 Mg PO DAILY Potassium Chloride ER (Potassium Chloride) 10 Meq Cap 10 Meq PO BID Paxil (Paroxetine HCl) 10 Mg Tab 20 Mg PO DAILY Prilosec (Omeprazole) 20 Mg Cap 20 Mg PO DAILY Lisinopril 5 Mg Tab 5 Mg PO DAILY Furosemide 20 Mg Tab 10 Mg PO DAILY Active Ordered Medications Current Medications Medications (Trade) Dose Ordered Sig/Michael Route PRN Reason Start Time Stop Time Status Last Admin Dose Admin Aspirin (Ecotrin Ec) 81 mg DAILY PO 08/16/16 09:00 Carvedilol (Coreg) 25 mg Q12HR PO 08/15/16 21:00 Digoxin (Lanoxin) 0.125 mg DAILY@08 PO 08/16/16 08:00 Ferrous Sulfate (Ferrous Sulfate) 325 mg DAILY PO 08/16/16 09:00 Furosemide (Lasix) 10 mg DAILY PO 08/16/16 09:00 Lisinopril (Prinivil) 5 mg DAILY PO 08/16/16 09:00 Promethazine HCl (Phenergan) 25 mg BID PRN PO Nausea/Vomiting 08/15/16 19:15 Sodium Chloride (NS Flush) 2 ml UNSCH PRN .XX FLUSH AFTER USING IV ACCESS 08/15/16 19:15 Sodium Chloride (NS Flush) 2 ml BID .XX 08/15/16 21:00 08/15/16 20:14 Acetaminophen (Tylenol) 650 mg Q6H PRN PO PAIN 1-10 AND/OR FEVER >101F 08/15/16 19:15 Lorazepam (Ativan Inj) 2 mg Q4H PRN IV Agitation/Sedation 08/15/16 19:15 Artificial Tears (Tears Naturale Opth Soln) 1 drop TID EACH EYE 08/16/16 09:00 Ondansetron HCl (Zofran Inj) 4 mg Q6H PRN IV NAUSEA OR VOMITING 08/15/16 19:15 Metoclopramide HCl (Reglan Inj) 5 mg Q6H PRN IV NAUSEA OR VOMITING 08/15/16 19:15 Docusate Sodium (Colace Liq) 100 mg Q12H G-TUBE 08/15/16 21:00 08/15/16 20:30 Heparin Sodium (Porcine) (Heparin Inj) 5,000 units Q12H SQ 08/15/16 21:00 08/15/16 20:30 Miscellaneous Information 1 Q361D XX 08/15/16 19:15 Chlorhexidine Gluconate (Chlorhexidine 2% Cloth) 3 pack Taper DAILY@04 TOP 08/16/16 04:00 08/12/17 03:59 Chlorhexidine Gluconate 3 pack 3 pack UNSCH PRN TOP HYGIENIC CARE 08/15/16 19:15 Propofol (Diprivan 1000 Mg/100ml Inj) 100 ml @ 0 mls/hr TITRATE IV 08/15/16 19:15 Miscellaneous (Pill Splitter) 1 ea UNSCH PRN OTHER SEE LABEL COMMENTS 08/15/16 19:30 Pantoprazole Sodium (Protonix) 20 mg DAILY PO 08/16/16 09:00 Paroxetine HCl (Paxil) 20 mg DAILY PO 08/16/16 09:00 Pravastatin Sodium (Pravachol) 40 mg DAILY PO 08/16/16 09:00 Family History Both parents at the age of 65 of heart disease Younger brother at the 35 of acute IA Older brother also with heart disease Social History Negative 3 Physical Exam Vital Signs Vital Signs Date Time Temp Pulse Resp B/P Pulse Ox O2 Delivery O2 Flow Rate FiO2 08/15/16 19:13 66 20 164/87 100 Ventilator 08/15/16 18:22 76 16 171/85 Ventilator 08/15/16 17:34 71 154/88 100 Ventilator 08/15/16 16:25 64 150/81 100 Ventilator 08/15/16 15:50 100 Ventilator 08/15/16 15:46 24 153/87 08/15/16 15:40 100 Physical Exam GENERAL: Sedated and intubated elderly woman SKIN: Warm and dry. HEAD: Normocephalic. EYES: No scleral icterus. No injection or drainage. NECK: Supple, trachea midline. No JVD or lymphadenopathy. CARDIOVASCULAR: Regular rate and rhythm without murmurs, gallops, or rubs. RESPIRATORY: Breath sounds equal bilaterally. No accessory muscle use. GASTROINTESTINAL: Abdomen soft, non-tender, nondistended. MUSCULOSKELETAL: No cyanosis, or edema. BACK: Nontender without obvious deformity. No CVA tenderness. EXTREMITIES: No clubbing cyanosis or edema Laboratory Laboratory Tests Test 08/15/16 08/15/16 15:30 16:36 White Blood Count 7.8 Red Blood Count 4.11 Hemoglobin 11.5 Hematocrit 35.2 Mean Corpuscular Volume 85.6 Mean Corpuscular Hemoglobin 27.8 Mean Corpuscular Hemoglobin 32.5 Concent Red Cell Distribution Width 15.6 Platelet Count 175 Mean Platelet Volume 7.9 Neutrophils (%) (Auto) 40.7 Lymphocytes (%) (Auto) 46.7 Monocytes (%) (Auto) 9.7 Eosinophils (%) (Auto) 2.2 Basophils (%) (Auto) 0.7 Neutrophils # (Auto) 3.2 Lymphocytes # (Auto) 3.6 Monocytes # (Auto) 0.8 Eosinophils # (Auto) 0.2 Basophils # (Auto) 0.1 CBC Comment DIFF FINAL Differential Comment Prothrombin Time 13.6 Prothromb Time International 1.2 Ratio Activated Partial 31.1 Thromboplast Time Sodium Level 139 Potassium Level 4.0 Chloride Level 102 Carbon Dioxide Level 27.4 Anion Gap 10 Blood Urea Nitrogen 12 Creatinine 1.02 Estimat Glomerular Filtration 52 Rate Random Glucose 113 Calcium Level 8.1 Magnesium Level 2.2 Total Bilirubin 0.4 Aspartate Amino Transf 22 (AST/SGOT) Alanine Aminotransferase 19 (ALT/SGPT) Alkaline Phosphatase 108 Total Creatine Kinase 107 Creatine Kinase MB 1.6 Troponin I 0.29 B-Type Natriuretic Peptide 310 Total Protein 7.1 Albumin 3.4 Digoxin Level 0.8 Blood Gas Puncture Site RT BRACHIAL Blood Gas Patient Temperature 98.6 Blood Gas HCO3 23 Blood Gas Base Excess -0.3 Blood Gas Oxygen Saturation 99 Arterial Blood pH 7.49 Arterial Blood Partial 30 Pressure CO2 Arterial Blood Partial 499 Pressure O2 Arterial Blood Oxygen Content 16.3 Arterial Blood 0.9 Carboxyhemoglobin Arterial Blood Methemoglobin 0.5 Blood Gas Hemoglobin 10.8 Oxygen Delivery Device VENTILATOR Blood Gas Ventilator Setting AC/16/500/PEEP+5 Blood Gas Inspired Oxygen 100 Result Diagram: 08/15/16 1530 08/15/16 1530 Assessment and Plan Problem List: (1) Atrial fibrillation with RVR ICD Code: I48.91 Status: Acute (2) Anemia ICD Code: D64.9 Status: Acute (3) CAD (coronary artery disease) ICD Code: I25.10 Status: Acute (4) Cardiac defibrillator in place ICD Code: Z95.810 Status: Acute Assessment and Plan Respiratory failure - Intubated for an airway protection - Continue mechanical ventilation until definite plan by cardiology per AICD replacement AICD malfunction - Interrogated - Will need replacement by cardiology Atrial fibrillation - Hold Xarelto for AICD procedure Coronary artery disease with 3 stents - No acute event - FREDY of EKGs and cardiac enzymes Congestive heart failure - No exacerbation - Resume home meds - FARA inhibitor and diuretics - Hold beta gwen due to malfunction of pacemaker Hypertension - FARA inhibitor - Diuretics - Hold beta gwen as above DVT GI prophylaxis - Teds SCDs - Resume Xarelto post pacemaker placement - Pepcid Critical Care: The total critical care time was 35 minutes. Time to perform other separately billable procedures was not included in the critical care time. Eyad Jimenez MD August 15, 2016 19:34
[2016-08-15] MEDS: SODIUM CHLORIDE 0.9% FLUSH 10 ML FLUSH SCH (20:14)
[2016-08-15] MEDS: CARVEDILOL 12.5 MG TAB PO SCH (20:16)
[2016-08-15] MEDS: HEPARIN SODIUM - SQ 10,000 UNITS/ML VIAL SQ SCH (20:30)
[2016-08-15] MEDS: DOCUSATE SODIUM 100 MG/10 ML UDC G-TUBE SCH (20:30)
[2016-08-15] MEDS ORDERED: DOCUSATE SODIUM 100 MG CAP PO SCH (21:00)
[2016-08-16] VITALS (15 sets, daily range): BP systolic 142–148; BP diastolic 67–79; PULSE 65–77; RESP 16; TEMP 98.2–99.5; O2SAT 97–100
[2016-08-16] MEDS: CHLORHEXIDINE GLUCONATE 2 % 1 PACK (2 CLOTHS) TOP SCH (03:38)
[2016-08-16 04:33] LABS: AUTOMATED NEUTROPHIL # 7.1 TH/MM3 (1.8-7.7); BASOPHIL % 0.2 % (0.0-2.0); EOSINOPHIL # 0.1 TH/MM3 (0-0.4); EOSINOPHIL % 0.6 % (0.0-4.0); HEMATOCRIT 34.3 % (35.0-46.0); HEMO FLAGS DIFF FINAL; LYMPH % 11.3 % (9.0-44.0); MEAN CELL VOLUME 84.8 FL (80.0-100.0); MEAN CORPUSCULAR HEMOGLOBIN 27.7 PG (27.0-34.0); MEAN CORPUSCULAR HGB CONC 32.7 % (32.0-36.0); MONO % 9.8 % (0.0-8.0); NEUT % 78.1 % (16.0-70.0); PLATELET COUNT 137 TH/MM3 (150-450); RED BLOOD COUNT 4.05 MIL/MM3 (4.00-5.30); WHITE BLOOD COUNT 9.1 TH/MM3 (4.0-11.0)
[2016-08-16 05:00] LABS: ALKALINE PHOSPHATASE 89 U/L (45-117); ALT (GPT) 23 U/L (10-53); ANION GAP 11 MEQ/L (5-15); AST (GOT) 58 U/L (15-37); BICARBONATE 24.4 MEQ/L (21.0-32.0); BLOOD UREA NITROGEN 15 MG/DL (7-18); CHLORIDE 101 MEQ/L (98-107); GLOMERULAR FILTRATION RATE 60 ML/MIN (>89); MAGNESIUM 2.4 MG/DL (1.5-2.5); SODIUM (NA) 136 MEQ/L (136-145); TOTAL BILIRUBIN ADULT 0.6 MG/DL (0.2-1.0)
--- NOTE | 2016-08-16 08:44 | PD.CARD.PN ---
Subjective Subjective Remarks Intubated. Denies CP, dyspnea, palpitations, dizziness. Objective Medications Item Value Date Time Aspirin 81 mg 08/16/16899 (Ecotrin Ec) DAILY/PO Furosemide 10 mg 08/16/16 0900 (Lasix) DAILY/PO Lisinopril 5 mg 08/16/16 09 (Prinivil) DAILY/PO Pravastatin Sodium 40 mg 08/16/16 09 (Pravachol) DAILY/PO Digoxin 0.125 mg 08/16/16 0800 (Lanoxin) DAILY@08/PO Carvedilol 25 mg 08/15/16 2100 (Coreg) Q12HR/PO Vital Signs / I&O Vital Signs Date Time Temp Pulse Resp B/P Pulse Ox O2 Delivery O2 Flow Rate FiO2 08/16/16 08:00 98.2 76 16 146/75 100 08/16/16 07:00 100 Mechanical Ventilator 35 08/16/16 04:00 99.3 71 16 148/73 100 08/16/16 03:53 100 35 08/16/16 00:00 98.2 77 16 147/79 97 08/15/16 23:53 96 40 08/15/16 22:09 100 40 08/15/16 22:00 98.7 81 20 159/89 100 08/15/16 22:00 40 08/15/16 22:00 Mechanical Ventilator 40 08/15/16 22:00 100 50 08/15/16 22:00 100 50 08/15/16 21:43 100 50 08/15/16 20:31 77 20 159/79 100 Ventilator 08/15/16 19:13 66 20 164/87 100 Ventilator 08/15/16 18:22 76 16 171/85 Ventilator 08/15/16 17:34 71 154/88 100 Ventilator 08/15/16 16:25 64 150/81 100 Ventilator 08/15/16 15:50 100 Ventilator 08/15/16 15:46 24 153/87 08/15/16 15:40 100 08/15/16 15:40 99 100 I/O 08/15/16 08/15/16 08/15/16 08/16/16 08/16/16 08/16/16 07:00 15:00 23:00 07:00 15:00 23:00 Intake Total 71 ml Output Total 300 ml Balance -229 ml Intake IV Total 71 ml Output Urine Total 300 ml # Voids 0 # Bowel Movements 0 Physical Exam GENERAL: Well developed, well nourished. No acute distress. HEENT: Jugular venous pressure is normal. CHEST: Lungs clear to auscultation anteriorly. CARDIAC: Regular rate and rhythm without S3, S4, or murmur. ABDOMEN: Soft, nontender, no hepatosplenomegaly. Bowel sounds present. EXTREMITIES: No clubbing, cyanosis, or edema. Laboratory Laboratory Tests Test 08/15/16 08/15/16 08/15/16 08/16/16 15:30 16:36 22:20 03:20 White Blood Count 7.8 TH/MM3 9.1 TH/MM3 Red Blood Count 4.11 MIL/MM3 4.05 MIL/MM3 Hemoglobin 11.5 GM/DL 11.2 GM/DL Hematocrit 35.2 % 34.3 % Mean Corpuscular Volume 85.6 FL 84.8 FL Mean Corpuscular Hemoglobin 27.8 PG 27.7 PG Mean Corpuscular Hemoglobin 32.5 % 32.7 % Concent Red Cell Distribution Width 15.6 % 16.0 % Platelet Count 175 TH/MM3 137 TH/MM3 Mean Platelet Volume 7.9 FL 8.0 FL Neutrophils (%) (Auto) 40.7 % 78.1 % Lymphocytes (%) (Auto) 46.7 % 11.3 % Monocytes (%) (Auto) 9.7 % 9.8 % Eosinophils (%) (Auto) 2.2 % 0.6 % Basophils (%) (Auto) 0.7 % 0.2 % Neutrophils # (Auto) 3.2 TH/MM3 7.1 TH/MM3 Lymphocytes # (Auto) 3.6 TH/MM3 1.0 TH/MM3 Monocytes # (Auto) 0.8 TH/MM3 0.9 TH/MM3 Eosinophils # (Auto) 0.2 TH/MM3 0.1 TH/MM3 Basophils # (Auto) 0.1 TH/MM3 0.0 TH/MM3 CBC Comment DIFF FINAL DIFF FINAL Differential Comment Prothrombin Time 13.6 SEC Prothromb Time International 1.2 RATIO Ratio Activated Partial 31.1 SEC Thromboplast Time Sodium Level 139 MEQ/L 136 MEQ/L Potassium Level 4.0 MEQ/L 4.0 MEQ/L Chloride Level 102 MEQ/L 101 MEQ/L Carbon Dioxide Level 27.4 MEQ/L 24.4 MEQ/L Anion Gap 10 MEQ/L 11 MEQ/L Blood Urea Nitrogen 12 MG/DL 15 MG/DL Creatinine 1.02 MG/DL 0.91 MG/DL Estimat Glomerular Filtration 52 ML/MIN 60 ML/MIN Rate Random Glucose 113 MG/DL 120 MG/DL Calcium Level 8.1 MG/DL 8.6 MG/DL Magnesium Level 2.2 MG/DL 2.4 MG/DL Total Bilirubin 0.4 MG/DL 0.6 MG/DL Aspartate Amino Transf 22 U/L 58 U/L (AST/SGOT) Alanine Aminotransferase 19 U/L 23 U/L (ALT/SGPT) Alkaline Phosphatase 108 U/L 89 U/L Total Creatine Kinase 107 U/L Creatine Kinase MB 1.6 NG/ML Troponin I 0.29 NG/ML B-Type Natriuretic Peptide 310 PG/ML Total Protein 7.1 GM/DL 7.1 GM/DL Albumin 3.4 GM/DL 3.4 GM/DL Digoxin Level 0.8 NG/ML Blood Gas Puncture Site RT BRACHIAL Blood Gas Patient Temperature 98.6 Blood Gas HCO3 23 mmol/L Blood Gas Base Excess -0.3 mmol/L Blood Gas Oxygen Saturation 99 % Arterial Blood pH 7.49 Arterial Blood Partial 30 mmHg Pressure CO2 Arterial Blood Partial 499 mmHG Pressure O2 Arterial Blood Oxygen Content 16.3 Vol % Arterial Blood 0.9 % Carboxyhemoglobin Arterial Blood Methemoglobin 0.5 % Blood Gas Hemoglobin 10.8 G/DL Oxygen Delivery Device VENTILATOR Blood Gas Ventilator Setting AC/16/500/PEEP+5 Blood Gas Inspired Oxygen 100 % Nasal Screen MRSA (PCR) MRSA NOT DETECTED Phosphorus Level 3.4 MG/DL Test 08/16/16 07:08 Troponin I 7.14 NG/ML Assessment and Plan Problem List: (1) AICD lead malfunction Assessment and Plan: Stable overnight. ICD deactivated. Patient sustained 72 inappropriate ICD shocks due to lead noise. Await Dr. Cordova's recommendations. (2) CAD (coronary artery disease) Assessment and Plan: Troponin elevated this morning though suspect more due to numerous ICD shocks she received. Patient and family report no recent angina symptoms. Rec continue medical therapy. (3) Ischemic cardiomyopathy Assessment and Plan: EF ~20%. Compensated at present. No definite acute CHF. Continue beta gwen, FARA-I. (4) Paroxysmal atrial fibrillation Assessment and Plan: Remains in NSR. Hold Xarelto in anticipation of surgical intervention for her malfunctioning ICD lead. Code Status full code Discussed Condition With patient and family Problem Qualifiers (1) AICD lead malfunction: Qualified Code: T82.110S - AICD lead malfunction, sequela (2) CAD (coronary artery disease): Qualified Code: I25.10 - Coronary artery disease involving [place] coronary artery of [place] heart without angina pectoris Alvaro Nettles MD August 16, 2016 08:44
[2016-08-16] MEDS: DIGOXIN 0.125 MG TAB PO SCH (08:59)
[2016-08-16] MEDS ORDERED: NON-FORMULARY DRUG (Simvastatin (Zocor) 20 MG) PO SCH (09:00)
[2016-08-16] MEDS: FUROSEMIDE 20 MG TAB PO SCH (09:00)
[2016-08-16] MEDS: ASPIRIN EC 81 MG TABEC PO SCH (09:00)
[2016-08-16] MEDS: FERROUS SULFATE 325 MG (65 MG ELEMENTAL IRON) TAB PO SCH (09:00)
[2016-08-16] MEDS ORDERED: NON-FORMULARY DRUG (Paroxetine (Paxil) 20 MG) PO SCH (09:00)
[2016-08-16] MEDS ORDERED: NON-FORMULARY DRUG (Omeprazole (Prilosec) 20 MG) PO SCH (09:00)
[2016-08-16] MEDS: LISINOPRIL 5 MG TAB PO SCH (09:01)
[2016-08-16] MEDS: PRAVASTATIN SOD 40 MG TAB PO SCH (09:01)
[2016-08-16] MEDS: CARVEDILOL 12.5 MG TAB PO SCH ×2 (09:01→21:35)
[2016-08-16] MEDS: PARoxetine HCL 20 MG TAB PO SCH (09:01)
[2016-08-16] MEDS: PANTOPRAZOLE SOD 20 MG DELAYED RELEASE TAB PO SCH (09:01)
[2016-08-16] MEDS: DOCUSATE SODIUM 100 MG/10 ML UDC G-TUBE SCH ×2 (09:02→21:35)
[2016-08-16] MEDS: HEPARIN SODIUM - SQ 10,000 UNITS/ML VIAL SQ SCH ×2 (09:02→21:36)
[2016-08-16] MEDS: ARTIFICIAL TEARS OPTH SOLN 15 ML BTL EACH EYE SCH ×3 (09:03→18:00)
[2016-08-16] MEDS: SODIUM CHLORIDE 0.9% FLUSH 10 ML FLUSH SCH ×2 (09:04→21:35)
--- NOTE | 2016-08-16 11:46 | HHI.CCPN ---
Subjective Remarks/Hospital Course 76-year-old female presents to emergency department via EMS after her AICD fired 72 times prior to EMS arrival. EMS states when they arrived the patient noted her AICD had fired several times. EMS states they placed the patient on cardiac telemetry monitoring, the patient had a sinus rhythm that varied between 60 and 100, with no obvious arrhythmias, however, they do note her AICD fired several times. EMS administered 2 mg of Ativan on scene, they then called medical control and spoke with Dr. Boyle, who stated the patient did have 2 more milligrams of Ativan intravenously for her discomfort secondary to the AICD firing. Upon arrival nursing staff stated that the patient was awake and alert, however, after they transferred her from the stretcher to the bed, the patient went apneic, stopped talking, and felt to be pulseless. CPR was initiated by nursing staff however when the ER attending examined the patient she had a palpable pulse. Intubated for airway protection as well as comfort due to malfunctioning AICD. SUBJ 08/16: Note from Dr. Nettles indicates ICD had been deactivated. Consult from Dr. Cordova, EP is pending. Sedated with propofol. Troponin elevated to 7.2. Dr. Nettles aware. Most likely from recurrent AICD firing Objective Vital Signs Date Time Temp Pulse Resp B/P Pulse Ox O2 Delivery O2 Flow Rate FiO2 08/16/16 11:07 100 35 08/16/16 08:00 98.2 76 16 146/75 08/16/16 07:00 Mechanical Ventilator Result Diagram: 08/16/16 0320 08/16/16 0320 Other Results Laboratory Tests Test 08/15/16 16:36 Blood Gas Puncture Site RT BRACHIAL Blood Gas Patient Temperature 98.6 Blood Gas HCO3 23 mmol/L (22-26) Blood Gas Base Excess -0.3 mmol/L (-2-2) Blood Gas Oxygen Saturation 99 % (90-100) Arterial Blood pH 7.49 (7.380-7.420) Arterial Blood Partial 30 mmHg (38-42) Pressure CO2 Arterial Blood Partial 499 mmHG Pressure O2 (61-120) Arterial Blood Oxygen Content 16.3 Vol % (12.0-20.0) Arterial Blood 0.9 % (0-4) Carboxyhemoglobin Arterial Blood Methemoglobin 0.5 % (0-2) Blood Gas Hemoglobin 10.8 G/DL (12.0-16.0) Oxygen Delivery Device VENTILATOR Blood Gas Ventilator Setting AC/16/500/PEEP+5 Blood Gas Inspired Oxygen 100 % Objective Remarks GENERAL: Sedated and intubated elderly woman SKIN: Warm and dry. HEAD: Normocephalic. EYES: No scleral icterus. No injection or drainage. NECK: Supple, trachea midline. No JVD or lymphadenopathy. CARDIOVASCULAR: Regular rate and rhythm without murmurs, gallops, or rubs. L upper chest AICD, paced rhythm RESPIRATORY: Breath sounds equal bilaterally. No accessory muscle use. GASTROINTESTINAL: Abdomen soft, non-tender, nondistended. MUSCULOSKELETAL: No cyanosis, or edema. BACK: Nontender without obvious deformity. No CVA tenderness. EXTREMITIES: No clubbing cyanosis or edema NEURO: Intubated sedated, wakes up easily, follows commands. A/P Problem List: (1) Atrial fibrillation with RVR ICD Code: I48.91 Status: Acute (2) Anemia ICD Code: D64.9 Status: Acute (3) CAD (coronary artery disease) ICD Code: I25.10 Status: Acute (4) Cardiac defibrillator in place ICD Code: Z95.810 Status: Acute Assessment and Plan Respiratory failure - Intubated for an airway protection - Continue mechanical ventilation until definite plan by cardiology for AICD replacement/revision AICD malfunction - Interrogated. ICD deactivated per Ju Nettles note - Will need replacement by cardiology Elevated Troponin: - Cardiology Dr. Nettles. Troponin elevation most likely secondary to AICD firing multiple times - Consult from Dr. Cordova is pending at this time - Continue ASA and beta blockers, Lasix Atrial fibrillation - Hold Xarelto for AICD procedure Coronary artery disease with 3 stents - No acute event - FREDY of EKGs and cardiac enzymes Congestive heart failure/cardiomyopathy - No exacerbation - FARA inhibitor and diuretics - Hold beta gwen due to malfunction of pacemaker Hypertension - FARA inhibitor - Diuretics - Carvedilol DVT GI prophylaxis - Teds SCDs - Holding Xarelto for AICD management,? need for revision - Pepcid Critical Care: The total critical care time was 35 minutes. Time to perform other separately billable procedures was not included in the critical care time. Problem Qualifiers (1) CAD (coronary artery disease): Qualified Code: I25.10 - Coronary artery disease involving [place] coronary artery of [place] heart without angina pectoris Christina Nguyen MD August 16, 2016 11:46
[2016-08-16] MEDS: PROPOFOL 1000 MG/100 ML INJ 100 ML IV SCH (15:33)
--- NOTE | 2016-08-16 17:26 | EKG ---
Date Performed: 08/15/2016 Time Performed: 15:47:50 PTAGE: 76 years EKG: Sinus rhythm WITH FIRST DEGREE AV BLOCK POSSIBLE LEFT ATRIAL ENLARGEMENT MARKED LEFT AXIS DEVIATION LEFT BUNDLE B RANCH BLOCK ABNORMAL ECG Compared to PREVIOUS TRACING pf 06/25/16, sinus rhythm has replaced atrial fibrillation. PREVIOUS TR ACIN06/25/2016 22.25 DOCTOR: Dilan Nicholas Interpretating Date/Time 08/16/2016 17:26:09
[2016-08-17] VITALS (18 sets, daily range): BP systolic 123–150; BP diastolic 56–69; PULSE 58–88; RESP 16–21; TEMP 97.6–99.2; O2SAT 98–100
[2016-08-17] MEDS: PROPOFOL 1000 MG/100 ML INJ 100 ML IV SCH ×3 (02:25→12:19)
[2016-08-17] MEDS: CHLORHEXIDINE GLUCONATE 2 % 1 PACK (2 CLOTHS) TOP SCH (04:48)
[2016-08-17 05:44] LABS: BASOPHIL % 0.3 % (0.0-2.0); EOSINOPHIL # 0.1 TH/MM3 (0-0.4); EOSINOPHIL % 0.6 % (0.0-4.0); HEMATOCRIT 35.4 % (35.0-46.0); HEMO FLAGS DIFF FINAL; LYMPH % 12.8 % (9.0-44.0); LYMPHOCYTE # 1.4 TH/MM3 (1.0-4.8); MEAN CELL VOLUME 84.9 FL (80.0-100.0); MEAN CORPUSCULAR HEMOGLOBIN 28.1 PG (27.0-34.0); MEAN CORPUSCULAR HGB CONC 33.1 % (32.0-36.0); MONO % 11.5 % (0.0-8.0); NEUT % 74.8 % (16.0-70.0); PLATELET COUNT 132 TH/MM3 (150-450); RED BLOOD COUNT 4.17 MIL/MM3 (4.00-5.30); WHITE BLOOD COUNT 10.7 TH/MM3 (4.0-11.0)
[2016-08-17 06:07] LABS: ALKALINE PHOSPHATASE 80 U/L (45-117); ALT (GPT) 22 U/L (10-53); ANION GAP 8 MEQ/L (5-15); AST (GOT) 52 U/L (15-37); BICARBONATE 28.1 MEQ/L (21.0-32.0); BLOOD UREA NITROGEN 17 MG/DL (7-18); CHLORIDE 101 MEQ/L (98-107); GLOMERULAR FILTRATION RATE 55 ML/MIN (>89); MAGNESIUM 2.3 MG/DL (1.5-2.5); POTASSIUM 3.8 MEQ/L (3.5-5.1); SODIUM (NA) 137 MEQ/L (136-145); TOTAL BILIRUBIN ADULT 0.9 MG/DL (0.2-1.0)
[2016-08-17] MEDS: FERROUS SULFATE 325 MG (65 MG ELEMENTAL IRON) TAB PO SCH (08:17)
[2016-08-17] MEDS: ASPIRIN EC 81 MG TABEC PO SCH (08:17)
[2016-08-17] MEDS: PANTOPRAZOLE SOD 20 MG DELAYED RELEASE TAB PO SCH (08:17)
--- NOTE | 2016-08-17 08:36 | PD.CARD.PN ---
Subjective Subjective Remarks Intubated. Sedated. Objective Medications Item Value Date Time Aspirin 81 mg 08/16/16 0900 (Ecotrin Ec) DAILY/PO Furosemide 10 mg 08/16/16 0900 (Lasix) DAILY/PO 08/16/16 0900 Lisinopril 5 mg 08/16/16 0900 (Prinivil) DAILY/PO 08/16/16 0901 Pravastatin Sodium 40 mg 08/16/16 0900 (Pravachol) DAILY/PO 08/16/16 0901 Digoxin 0.125 mg 08/16/16 0800 (Lanoxin) DAILY@08/PO 08/16/16 0859 Carvedilol 25 mg 08/15/162099 (Coreg) Q12HR/PO 08/16/162134 Heparin Sodium 5,000 units 08/15/162099 (Porcine) Q12H/SQ 08/16/162135 (Heparin Inj) Vital Signs / I&O Vital Signs Date Time Temp Pulse Resp B/P Pulse Ox O2 Delivery O2 Flow Rate FiO2 08/17/16 06:00 68 08/17/16 04:00 98.2 64 17 148/69 100 08/17/16 02:00 73 08/17/16 01:01 100 35 08/17/16 00:00 68 08/17/16 00:00 99.2 68 16 141/60 100 08/16/16 22:00 67 08/16/16 20:26 100 35 08/16/16 20:00 73 08/16/16 20:00 99.5 73 16 142/67 100 08/16/16 19:00 100 Mechanical Ventilator 35 08/16/16 18:00 69 08/16/16 16:18 100 35 08/16/16 16:00 67 08/16/16 16:00 98.9 67 16 145/71 100 08/16/16 14:00 65 08/16/16 12:00 98.2 67 16 145/68 100 08/16/16 12:00 67 08/16/16 11:07 100 35 08/16/16 10:00 65 08/16/16 09:23 100 35 I/O 08/16/16 08/16/16 08/16/16 08/17/16 08/17/16 08/17/16 07:00 15:00 23:00 07:00 15:00 23:00 Intake Total 71 ml 52 ml 118 ml 114 ml Output Total 300 ml 150 ml 150 ml 125 ml Balance -229 ml -98 ml -32 ml -11 ml Intake IV Total 71 ml 52 ml 58 ml 114 ml Tube Irrigant 60 ml Output Urine Total 300 ml 150 ml 150 ml 125 ml # Bowel Movements 0 0 0 0 Physical Exam GENERAL: Well developed, well nourished. Intubated. Sedated. HEENT: Jugular venous pressure is normal. CHEST: Lungs clear to auscultation anteriorly. CARDIAC: Regular rate and rhythm without S3, S4, or murmur. ABDOMEN: Soft, nontender, no hepatosplenomegaly. Bowel sounds present. EXTREMITIES: No clubbing, cyanosis, or edema. Laboratory Laboratory Tests Test 08/17/16 08/17/16 05:14 05:18 Sodium Level 137 MEQ/L Potassium Level 3.8 MEQ/L Chloride Level 101 MEQ/L Carbon Dioxide Level 28.1 MEQ/L Anion Gap 8 MEQ/L Blood Urea Nitrogen 17 MG/DL Creatinine 0.98 MG/DL Estimat Glomerular Filtration 55 ML/MIN Rate Random Glucose 111 MG/DL Calcium Level 8.5 MG/DL Magnesium Level 2.3 MG/DL Total Bilirubin 0.9 MG/DL Aspartate Amino Transf 52 U/L (AST/SGOT) Alanine Aminotransferase 22 U/L (ALT/SGPT) Alkaline Phosphatase 80 U/L Total Protein 7.0 GM/DL Albumin 3.1 GM/DL White Blood Count 10.7 TH/MM3 Red Blood Count 4.17 MIL/MM3 Hemoglobin 11.7 GM/DL Hematocrit 35.4 % Mean Corpuscular Volume 84.9 FL Mean Corpuscular Hemoglobin 28.1 PG Mean Corpuscular Hemoglobin 33.1 % Concent Red Cell Distribution Width 16.0 % Platelet Count 132 TH/MM3 Mean Platelet Volume 7.8 FL Neutrophils (%) (Auto) 74.8 % Lymphocytes (%) (Auto) 12.8 % Monocytes (%) (Auto) 11.5 % Eosinophils (%) (Auto) 0.6 % Basophils (%) (Auto) 0.3 % Neutrophils # (Auto) 8.0 TH/MM3 Lymphocytes # (Auto) 1.4 TH/MM3 Monocytes # (Auto) 1.2 TH/MM3 Eosinophils # (Auto) 0.1 TH/MM3 Basophils # (Auto) 0.0 TH/MM3 CBC Comment DIFF FINAL Differential Comment Assessment and Plan Problem List: (1) AICD lead malfunction Assessment and Plan: Stable overnight. ICD deactivated. Patient sustained 72 inappropriate ICD shocks due to lead noise. Will leave rest of cardiac care to Dr. Cordova. (2) CAD (coronary artery disease) Assessment and Plan: Troponin elevated though suspect more due to numerous ICD shocks she received. Patient and family report no recent angina symptoms. Rec continue medical therapy. (3) Ischemic cardiomyopathy Assessment and Plan: EF ~20%. Compensated at present. No definite acute CHF. Continue beta gwen, FARA-I. (4) Paroxysmal atrial fibrillation Assessment and Plan: Remains in NSR. Hold Xarelto in anticipation of surgical intervention for her malfunctioning ICD lead. Code Status full code Discussed Condition With patient Problem Qualifiers (1) AICD lead malfunction: Qualified Code: T82.110S - AICD lead malfunction, sequela (2) CAD (coronary artery disease): Qualified Code: I25.10 - Coronary artery disease involving [place] coronary artery of [place] heart without angina pectoris Alvaro Nettles MD August 17, 2016 08:36
[2016-08-17] MEDS: DOCUSATE SODIUM 100 MG/10 ML UDC G-TUBE SCH ×2 (08:56→21:28)
[2016-08-17] MEDS: ARTIFICIAL TEARS OPTH SOLN 15 ML BTL EACH EYE SCH ×3 (08:57→17:42)
[2016-08-17] MEDS: PRAVASTATIN SOD 40 MG TAB PO SCH (08:57)
[2016-08-17] MEDS: SODIUM CHLORIDE 0.9% FLUSH 10 ML FLUSH SCH ×2 (08:57→21:28)
[2016-08-17] MEDS: LISINOPRIL 5 MG TAB PO SCH (08:57)
[2016-08-17] MEDS: DIGOXIN 0.125 MG TAB PO SCH (08:57)
[2016-08-17] MEDS: CARVEDILOL 12.5 MG TAB PO SCH ×2 (08:57→21:28)
[2016-08-17] MEDS: PARoxetine HCL 20 MG TAB PO SCH (08:57)
[2016-08-17] MEDS: FUROSEMIDE 20 MG TAB PO SCH (08:57)
[2016-08-17] MEDS: HEPARIN SODIUM - SQ 10,000 UNITS/ML VIAL SQ SCH ×2 (08:58→21:29)
--- NOTE | 2016-08-17 09:25 | HHI.CCPN ---
Subjective Remarks/Hospital Course 76-year-old female presents to emergency department via EMS after her AICD fired 72 times prior to EMS arrival. EMS states when they arrived the patient noted her AICD had fired several times. EMS states they placed the patient on cardiac telemetry monitoring, the patient had a sinus rhythm that varied between 60 and 100, with no obvious arrhythmias, however, they do note her AICD fired several times. EMS administered 2 mg of Ativan on scene, they then called medical control and spoke with Dr. Boyle, who stated the patient did have 2 more milligrams of Ativan intravenously for her discomfort secondary to the AICD firing. Upon arrival nursing staff stated that the patient was awake and alert, however, after they transferred her from the stretcher to the bed, the patient went apneic, stopped talking, and felt to be pulseless. CPR was initiated by nursing staff however when the ER attending examined the patient she had a palpable pulse. Intubated for airway protection as well as comfort due to malfunctioning AICD. SUBJ 08/16: Note from Dr. Nettles indicates ICD had been deactivated. Consult from Dr. Cordova, EP is pending. Sedated with propofol. Troponin elevated to 7.2. Dr. Nettles aware. Most likely from recurrent AICD firing 08/17: Plan is for flue dust laborer today to define coronary anatomy, +/_ lead reposition. Objective Vital Signs Date Time Temp Pulse Resp B/P Pulse Ox O2 Delivery O2 Flow Rate FiO2 08/17/16 09:20 100 35 08/17/16 06:00 68 08/17/16 04:00 98.2 17 148/69 08/16/16 19:00 Mechanical Ventilator Intake and Output 08/16/16 08/16/16 08/17/16 08:00 16:00 00:00 Intake Total 71 ml 52 ml 118 ml Output Total 300 ml 150 ml 150 ml Balance -229 ml -98 ml -32 ml Result Diagram: 08/17/1651708/17/16 05 Objective Remarks GENERAL: Sedated and intubated elderly woman SKIN: Warm and dry. HEAD: Normocephalic. EYES: No scleral icterus. No injection or drainage. NECK: Supple, trachea midline. No JVD or lymphadenopathy. CARDIOVASCULAR: Regular rate and rhythm without murmurs, gallops, or rubs. L upper chest AICD, paced rhythm RESPIRATORY: Breath sounds equal bilaterally. No accessory muscle use. GASTROINTESTINAL: Abdomen soft, non-tender, nondistended. MUSCULOSKELETAL: No cyanosis, or edema. BACK: Nontender without obvious deformity. No CVA tenderness. EXTREMITIES: No clubbing cyanosis or edema NEURO: Intubated sedated, wakes up easily, follows commands. A/P Problem List: (1) Atrial fibrillation with RVR ICD Code: I48.91 Status: Acute (2) Anemia ICD Code: D64.9 Status: Acute (3) CAD (coronary artery disease) ICD Code: I25.10 Status: Acute (4) Cardiac defibrillator in place ICD Code: Z95.810 Status: Acute Assessment and Plan Respiratory failure - Intubated for an airway protection - Continue mechanical ventilation until definite plan by cardiology for AICD replacement/revision AICD malfunction - Interrogated. ICD deactivated per Ju Nettles note - Will need replacement by cardiology Elevated Troponin: - Cardiology Dr. Nettles. Troponin elevation most likely secondary to AICD firing multiple times - Consult from Dr. Cordova is pending at this time - Continue ASA and beta blockers, Lasix Atrial fibrillation - Hold Xarelto for AICD procedure Coronary artery disease with 3 stents - No acute event - FREDY of EKGs and cardiac enzymes Congestive heart failure/cardiomyopathy - No exacerbation - FARA inhibitor and diuretics - Hold beta gwen due to malfunction of pacemaker Hypertension - FARA inhibitor - Diuretics - Carvedilol DVT GI prophylaxis - Teds SCDs - Holding Xarelto for AICD management,? need for revision - Pepcid Overall impression: Critically ill with unstable cardiac function and ventilator dependence. Critical Care 36 mins Problem Qualifiers (1) CAD (coronary artery disease): Qualified Code: I25.10 - Coronary artery disease involving [place] coronary artery of [place] heart without angina pectoris Joni Hodges MD August 17, 2016 09:25
--- NOTE | 2016-08-17 10:28 | PD.CARD.PN ---
Assessment and Plan Problem List: (1) AICD lead malfunction (2) CAD (coronary artery disease) (3) Ischemic cardiomyopathy (4) Paroxysmal atrial fibrillation Assessment and Plan 1) Asked by Dr. Cordova to do a left heart catheterization on the patient due to elevated troponin at 7.14 before consideration of further EP management 2) Discussed with the patient's two daughters about risk, benefits and alternatives, they consent for the procedure 3) Will plan for today, and depending on what is found will discuss further with Dr. Cordova about management from an EP standpoint for possible lead fracture Problem Qualifiers (1) AICD lead malfunction: Qualified Code: T82.110S - AICD lead malfunction, sequela (2) CAD (coronary artery disease): Qualified Code: I25.10 - Coronary artery disease involving [place] coronary artery of [place] heart without angina pectoris Scout Navarro DO August 17, 2016 10:28
[2016-08-17] MEDS ORDERED: HEPARIN-NS/PF INJ 500 ML ONE (10:38)
--- NOTE | 2016-08-17 11:25 | MB ---
cc: TRENTON SHAFFER HANSCY M.D. RAYOS, GLENN H. M.D. DATE OF CONSULTATION: 08/16/2016 REASON FOR CONSULTATION: Electrophysiology consult. HISTORY: I was called to evaluate Mrs. Lepe. She is a 76-year-old female with coronary artery disease, cardiomyopathy. She has a previous defibrillator implanted. She was seen in the past by Dr. Nettles. History of atrial fibrillation and she had dilated cardiomyopathy also ejection fraction around 15-20%. She is on optimal medical treatment. She has PTCA plus stent by Dr. Bull. She was at home, she received multiple defibrillatory shocks family reports 72 shocks. The patient was brought to the emergency room. Ativan was given, she became unresponsive. She was intubated and put on mechanical ventilation. The defibrillator was turned off. Chest x-rays show lead fracture. I was consulted for evaluation and management and lead replacement. The chart was reviewed. The patient was evaluated. I discussed the case at length with Dr. Nettles and also I discussed the case with the patient's family. There were at least six or seven of them in the room. The information obtained from medical record and the patient's family, from conversation with Dr. Nettles. ALLERGIES CODEINE SOCIAL HISTORY Negative for smoking and drinking. FAMILY HISTORY Noncontributory to her current medical condition. MEDICATIONS AT HOME 1. She was on Lasix 10 mg a day. 2. Lisinopril 5 mg a day 3. Potassium. 4. Zocor 5. Xarelto 6. Aspirin 7. Digoxin 8. Coreg. REVIEW OF SYSTEMS Cannot be performed. This patient on mechanical ventilation. PHYSICAL EXAMINATION: IN GENERAL: Sedated on mechanical ventilation was seen follow per by medication. VITAL SIGNS: Blood pressure 145/71, pulse 57, respiratory rate 41 by the ventilator. LUNGS: Ventilated CARDIOVASCULAR SYSTEM: S1-S2 no gallop, no murmur. ABDOMEN: The abdomen is soft, no mass, no bruits. EXTREMITIES: No edema. RADIOLOGIC: Electrocardiogram shows sinus rhythm. Left bundle-branch block, diffuse ST changes. LABORATORY DATA Hemoglobin is 11.7, white blood cell 10.7, potassium 3.8, troponin 7.14. ASSESSMENT AND RECOMMENDATIONS Miss Lepe has apparently the lead fracture. Noise was tracking by the lead, that led to inappropriate shocks. The device is currently off, she has low ejection fraction. She will need a new lead placement. In the meantime Troponin is 7.14. She has a history of coronary artery disease. She will need left heart catheterization. Dr. Nettles, or Dr. Shaffer will be consulted for the procedure. If there is no need for revascularization then at that point I will proceed with lead placement. Case has been extensively discussed the patient and family. Also the case was discussed with Dr. Shaffer over the phone. MD KAUSHAL Jennings/ /9:12 AM /10:32 AM
[2016-08-17] MEDS ORDERED: IOHEXOL 350 MG/ML 100 ML BTL (for Cath Lab) OTHER ONE (11:30)
--- NOTE | 2016-08-17 11:58 | CATHPROC ---
[employer] HIS Report Study Information Study Number Admission Scheduled Start Study Start [id number] 08/15/2016 08/17/2016 Aug 17 2016 10:35AM Study Type Left/Possible PCI Referring Institution Admit Source Facility Department 1 Emergency department [facility] - Civil Designer Physician and Clinical Staff Initial Scout Taylor Fusing Machine Operator Etienne Stevenson RN Fusing Machine OperatorWalt Murrieta RN Recorder Theresa Cabezas,LORRIE TECH2 Scrub HostMinor monreal,RT(R) Procedures Performed Procedure Location (Site) Vessel Name Coronary Angiograms LCA Left Coronary Coronary Angiograms RCA Right Coronary L Heart Cath Equipment Time Fountain Dispenser Description Size Mfg Part Number Used/Scraped TRANSDUCER, TRUWAVE 10:37 TAYLOR LUKE * [id number] Used W/Twelvefold INTRODUCER SET, [id number]- 10:59 [employer] FR 5 Used MICROPUNCTURE, STIFFENED SC-NT-U-SST 10:37 [employer] PACK, CCL CUSTOM * [id number] Used 10:37 [employer] MEDICAL SHEATH, FR5.5 PRELUDE 11CM FR 5 [id number] Used 10:37 [employer] WIRE, 3MMJ .035 180CM 180CM [id number] Used 10:37 NAMIC MANIFOLD, 4 PORT * [id number] Used 10:37 NYCOMED OMNIPAQUE, 350 MG, 100ML 100ML [id number] Used 10:37 [employer] MEDICAL BLANKET,WARM AIR CCL * [id number] Used History: Current Medications Medication Dosage/Unit Route Frequency Last Date/Time Taken LASIX LISINOPRIL K-Dur Statins (any) XARELTO ASA DIGOXIN CARVEDILOL History: Allergies Allergy Reaction Codeine BLINDNESS, PALPITATIONS, DIAPHORESIS History: Risk Factors Family History of Hypertension Dyslipidemia Previous OH Previous Heart Failure Premature CAD Yes Yes Yes No Yes Prior Valve Prior PCI Prior PCIDate Prior CABG Surgery No Yes 11/28/2007 No Cerebrovascular Peripheral Artery Chronic Lung On Dialysis Diabetes Disease Disease Disease No No No No No History: Symptoms/Diagnosis Selection Items Chest pain Palpitations SOB Syncope History: CV Disease Selection Items Cardiomyopathy dilated Known CAD History: Stress Tests Stress or Imaging Studies Performed No History: Arrhythmias Selection Items Atrial fibrillation History: Other Disease Selection Items CAD HTN History: Other Current Smoker Method Quit No Cigarettes 25 Years Ago Labs Hgb (g/dl) Hct (%) WBC (l/cumm) Platelets (thousands) 12.00-18.00 37.00-55.00 4.80-10.80 140.00-450.00 11.7 35.4 10.7 132 Glucose (mg/dl) BUN (mg/dl) Creatinine (mg/dl) BUN:Creatinine (1:x) 60.00-110.00 8.00-20.00 0.10-9.00 10.00-20.00 111 17 0.9 18.9 Na (meq/l) K (meq/l) 138.00-146.00 3.80-5.10 137 3.8 INR (PTT:PT) 0.50-2.00 1.2 Troponin I (ng/ml) CPK (u/l) CPK-MB (ng/ML) 0.40-2.30 37.00-289.00 0.00-7.00 7.14 107 1.6 Medication Medication Total Dose (Bolus/Oral) Medication Total Dosage/Unit 1% XYLOCAINE 20 mL PROPOFOL 20 mcg/kg/min Medications (Bolus/Oral) Medication Time Given Dosage/Unit Administered By Reason PROPOFOL 08/17/2016 10:39:25 AM 20 mcg/kg/min Walt Menon Patient arrived on 20 mcg/kg/min PROPOFOL given by Walt Menon RN in Left Antecubital via Peripher al IV. Pump/Drip Flow = 7.2 ml/hr using [Solution Name] with a concentration of 1000 mg in 100 ml. 1% XYLOCAINE 08/17/2016 10:57:10 AM 20 mL Scout Navarro 20 mL 1% XYLOCAINE given in lab by Scout Navarro in Right Groin via Subcutaneous. Medication (Drip) Medication Time Given Dosage/Unit Concentration/Unit Diluent (ml) Solution IV Solutions 08/17/2016 10:38:54 AM 0 mL (IV) 500 NaCl .9 Patient arrived on IV Solutions given by Walt Menon RN in Right Antecubital via Peripheral IV. Pu mp/Drip Flow = 20 ml/hr using NaCl .9. Initial Case Assessment Cardiovascular HR Rhythm NIBP Chest Pain 60 a-fib 136/70 0 Circulatory - Right Pulses Dorsalis Pedis Femoral 2 2 Scale (0,1,2,3,4,d) Circulatory - Left Pulses Dorsalis Pedis Femoral 2 2 Scale (0,1,2,3,4,d) Neurological State Unresponsive Comment: Pt intubated on propofol drip Respiration - General Respiration Rate SpO2 (%) (B/min) 11 100 Respiration - Ventilator Type Intubation Type ET(oral) Respiration - Ventilator Settings TV (ml) IMV (L) FIO2 (%) PEEP (cm/H2O) 450 16 35 5 Final Case Assessment Cardiovascular HR Rhythm NIBP Chest Pain 56 a-fib 139/69 0 Circulatory - Right Pulses Dorsalis Pedis Femoral 2 2 Scale (0,1,2,3,4,d) Circulatory - Left Pulses Dorsalis Pedis Femoral 2 2 Scale (0,1,2,3,4,d) Neurological State Unresponsive Comment: pt intubated on propofol drip Respiration - General Respiration Rate SpO2 (%) (B/min) 15 100 Chronological Log Time Study Chronological Log 10:31:07 Patient arrived via Bed. 10:31:20 Patient Name, D.O.B, / Armband Verified By R.N. 10:35:26 Consent signed by the physician and the patient and verified by the Civil Designer staff. 10:35:27 Patient unconcious; pre and post-op instructions not given. 10:35:33 Verbal Stimulation=2 Physical Stimulation=2 Airway=2 Respiration=2 TOTAL=8. (0=absent, 1=li mited, 2=present) 10:36:26 MD arrived. 10:38:48 A # 20 IV was noted in the Antecubital (right). Grade = patent Patient arrived on IV Solutions given by Walt Menon RN in Right Antecubital via Peripheral IV. Pump/Drip Flow = 20 10:38:54 ml/hr using NaCl .9. 10:39:10 Patient has been NPO for More than 6Hrs. 10:39:12 Skin Breakdown-none 10:39:15 Disposable Defibrillator Pads Placed On Patient. 10:39:18 Mary Alice Prominences Protected 10:39:22 A # 20 IV was noted in the Antecubital (left). Grade = patent Patient arrived on 20 mcg/kg/min PROPOFOL given by Walt Menon RN in Left Antecubital via Pe ripheral IV. 10:39:25 Pump/Drip Flow = 7.2 ml/hr using [Solution Name] with a concentration of 1000 mg in 100 ml. 10:40:13 History and physical on the chart or being dictated. Assessment: Initial Case, HR=60 BPM, Rhythm=a-fib, QQQX=950/70 mmhg, Chest Pain=0 Right Pulses: Sohail Ped=2, Femoral=2 10:40:15 Left Pulses: Sohail Ped=2, Femoral=2 Neurological: State=Unresponsive, Comment=Pt intubated on propofol drip Respiration: Resp=11 B/min, PqE2=385 %, Type=ET(Oral), XM=437 mL, IMV=16 L, FIO2=35 %, PEEP=5 c m/H2O Vitals capture started with the following parameters, Patient=Adult, Interval=15 min, Initial P lpjwmfy=759 mmHg, 10:40:53 Deflation Rate=5 mmHg 10:42:11 HR=69 bpm, IKDM=210/70 mmhg, YgB0=051.0 %, Resp=18 B/min 10:42:15 Right groin prepped with 2% chlorhexidine, and with a 3 min. waiting time. 10:46:31 HR=62 bpm, DRSB=402/60 mmhg, HzJ4=820.0 %, Resp=17 B/min 10:50:00 Pressure channel 1 zeroed. 10:50:33 Reference ECG taken 10:51:30 HR=57 bpm, TNWM=327/70 mmhg, JqD6=331.0 %, Resp=16 B/min Time Out. Correct patient, correct procedure, correct physician, power injector not loaded with contrast with surgical 10:54:40 team present. Time Out Concurred by MD, individual staff and MEDICAL SERVICES MANAGER in procedure 10:56:31 BF=790 bpm, NSUE=781/69 mmhg, MkR0=852.0 %, Resp=16 B/min 10:57:09 Case Start 10:57:10 20 mL 1% XYLOCAINE given in lab by Scout Navarro in Right Groin via Subcutaneous. 10:58:39 Access site was Right Femoral Artery. A INTRODUCER SET, MICROPUNCTURE, STIFFENED FR 5 was advanced into the Fem Art (right) using the 10:58:54 Percutaneous technique. A SHEATH, FR5.5 PRELUDE 11CM FR 5 was exchanged in the Fem Art (right). This was necessary in o rder to 10:59:21 accomodate a larger catheter. 10:59:36 An injection in the Fem Art (right) was made through the SHEATH, FR5.5 PRELUDE 11CM FR 5. Recorded Pressure: RFA, HR=85, Condition=Condition 1 11:00:14 (Right Femoral Artery) RFA 161/50/95 11:01:02 A JR 4.0 INFINITI CATHETER FR 5 was advanced over a wire. contrast was used for injections. 11:01:30 HR=57 bpm, HGBO=316/67 mmhg, WuD8=481.0 %, Resp=16 B/min Recorded Pressure: LV, HR=75, Condition=Condition 1 11:02:16 (Left Ventricle) LV 157/1/14 Recorded Pressure: LV, Ao, HR=59, Condition=Condition 1 11:02:32 (Left Ventricle) LV 144/6/22, (Aorta) Ao 144/56/84 11:04:18 The RCA was injected and visualized at various angles. OMNIPAQUE, 350 MG, 100ML 100ML used . After removing the current catheter a JL 4.0 INFINITI CATHETER FR 5 was advanced over a WIRE, 3 MMJ .035 180CM 11:05:55 180CM. 11:06:29 HR=68 bpm, MOPK=225/72 mmhg, TfN1=630.0 %, Resp=17 B/min 11:08:15 The LCA was injected and visualized at various angles. OMNIPAQUE, 350 MG, 100ML 100ML used . 11:11:29 Reviewing old films of previous caths. 11:11:30 HR=64 bpm, OUIS=494/79 mmhg, TqF1=726.0 %, Resp=19 B/min 11:12:53 Catheter was removed 11:13:32 Case End 11:16:10 Sheath removed; pressure applied to access site by Minor Lopez RTR 11:16:33 HR=61 bpm, EZTB=527/66 mmhg, BdS7=592.0 %, Resp=32 B/min 11:21:30 HR=71 bpm, HYBC=026/75 mmhg, EoU5=741.0 %, Resp=19 B/min 11:22:58 Cine recording checked. 11:26:35 HR=70 bpm, XYJB=535/65 mmhg, UlU8=711.0 %, Resp=18 B/min 11:31:34 HR=80 bpm, ZSVV=600/69 mmhg, OiR6=545.0 %, Resp=15 B/min Assessment: Final Case, HR=56 BPM, Rhythm=a-fib, ZTKJ=617/69 mmhg, Chest Pain=0 Right Pulses: Sohail Ped=2, Femoral=2 11:31:36 Left Pulses: Sohail Ped=2, Femoral=2 Neurological: State=Unresponsive, Comment=pt intubated on propofol drip Respiration: Resp=15 B/min, UbL2=219 % 11:32:32 Hemostasis obtained. 11:32:53 Sterile dressing applied to site 11:33:08 Bedside Report will be given. 11:33:20 No case complications noted. 11:33:37 A Left Heart Cath was performed. 11:33:46 Clinical correlaton risk stratification. 11:34:16 Patient moved to bed 11:40:39 Patient transported to [facility] End Study - Contrast Media Used In Study Contrast Total Opened (mL) Total Used (mL) Total Wasted (mL) Omnipaque 60 60 0 End Study - Maximum Contrast Load Max Contrast Load (mL) 333.3 End Study - Radiation Exposure Fluoro Time (minutes) 3.1 End Study - Sheaths Sheaths Pulled By Sheath Hold Time (min) Minor Spear End Study - Patient Disposition Complications Transferred To Critical Care Bed
--- NOTE | 2016-08-17 13:25 | MA ---
cc: SCOUT SHAFFER DO DATE: 08/17/2016 PROCEDURE Left heart catheterization, coronary angiogram. PREPROCEDURE DIAGNOSIS Multiple AICD shocks, elevated troponin, known cardiomyopathy with coronary artery disease. POSTPROCEDURE DIAGNOSIS Moderate coronary artery disease not significantly changed from previous cardiac catheterization in 2007, multiple AICD shocks most likely secondary to fractured lead, elevated troponin secondary to AICD shocks. MEDICATION GIVEN Propofol drip at 20 mcg/kg/minute. CONTRAST USED 60 cc. FLUOROSCOPY TIME 3.1 minutes. PROCEDURAL SUMMARY Apolinar Lepe is a pleasant 76-year-old female who presented to [facility] after having multiple shocks. Her FARA AICD fired around 72 times. There was a concern for a fracture of the lead. She had a troponin that went up to 7 and there was concern that she does have a history of CAD and ischemic lesion needed to be ruled out before consideration of revision of her lead by Dr. Cordova. The patient is currently intubated and risks, benefits and alternatives were explained to her two daughters who consented for the procedure. She was brought to the lab and prepped in the usual sterile fashion. The right femoral artery was accessed using a modified Seldinger technique with a micropuncture needle and a 5-Montserratian sheath was placed. Femoral angiogram shows mild disease in the right common femoral artery but otherwise no significant disease. A JR4 was advanced over a J-wire to the ascending aorta and across the aortic valve for measurement of left ventricular end-diastolic pressure. This was pulled back across the aortic valve and there was no significant gradient of aortic stenosis. The JR4 was used for selective angiography of the right coronary system. The JR4 was exchanged for a JL4 which was used for selective angiography of the left coronary system. The JL4 was then removed over a J-wire. Films were reviewed from 2007 in comparison to the catheterization from today. A 5-Montserratian sheath was then removed and pressure was held for hemostasis. The patient left the photo lab technician currently intubated but stable. FINDINGS CORONARY ANGIOGRAPHY The left main is a normal size vessel with no significant disease throughout, shows good reflux into the aortic root. It bifurcates into an LAD and circumflex. The LAD is an overall normal size vessel with 10-20% disease at the proximal portion. In the middle portion there is a calcified 40-50% lesion which shows no significant difference from 2008. It does give off three small diagonals with the third diagonal being the most prominent and has a 30-40% lesion in the ostial portion. The left circumflex is a normal size vessel. It gives off one major obtuse marginal. Throughout it has 10-20% disease diffusely but no significant lesions. The right coronary artery is a dominant vessel in nature. Previous stenting from 2007 in the midportion of it shows mild 20-30% in-stent restenosis. The RCA overall gives off a PDA and two posterolateral branches with no significant disease. Left ventricular end-diastolic pressure is 20. IMPRESSIONS 1. Moderate coronary artery disease by cardiac catheterization which shows no significant difference from 2008. 2. Multiple AICD shocks, most likely from a fractured lead. 3. Elevated troponin secondary to AICD shocks. 4. Known cardiomyopathy with an ejection fraction of 15-20%. RECOMMENDATIONS 1. Overall Ms. Lepe's coronary artery disease looks similar to 2008. I do not believe that any of these lesions cause an ischemic concern leading to an elevated troponin. Troponin is most likely due to her AICD firing over 70 times. 2. Her AICD has since been turned off. 3. I will discuss this with Dr. Cordova about consideration of AICD lead revision. 4. Will continue medical management of her known coronary artery disease and cardiomyopathy. 5. Discussed with the critical care team and will consider extubation later today after lying flat for around five hours due to her sheath pull. 6. Discussed with the family about the findings. Thank you for allowing me to see Apolinar Lepe. If there are any questions, please do not hesitate to call. Scout Shaffer DO VGP/BT /11:54 AM /1:05 PM
[2016-08-18] VITALS (14 sets, daily range): BP systolic 112–146; BP diastolic 59–66; PULSE 67–95; RESP 20–28; TEMP 97.7–98.7; O2SAT 95–100
[2016-08-18] MEDS: CHLORHEXIDINE GLUCONATE 2 % 1 PACK (2 CLOTHS) TOP SCH (03:33)
[2016-08-18] MEDS: DIGOXIN 0.125 MG TAB PO SCH (08:00)
[2016-08-18] MEDS: DOCUSATE SODIUM 100 MG/10 ML UDC G-TUBE SCH ×2 (08:14→20:26)
[2016-08-18] MEDS: FERROUS SULFATE 325 MG (65 MG ELEMENTAL IRON) TAB PO SCH (08:15)
[2016-08-18] MEDS: CARVEDILOL 12.5 MG TAB PO SCH ×2 (08:15→20:26)
[2016-08-18] MEDS: PRAVASTATIN SOD 40 MG TAB PO SCH (08:15)
[2016-08-18] MEDS: ASPIRIN EC 81 MG TABEC PO SCH (08:15)
[2016-08-18] MEDS: HEPARIN SODIUM - SQ 10,000 UNITS/ML VIAL SQ SCH ×2 (08:15→20:26)
[2016-08-18] MEDS: LISINOPRIL 5 MG TAB PO SCH (08:15)
[2016-08-18] MEDS: PANTOPRAZOLE SOD 20 MG DELAYED RELEASE TAB PO SCH (08:16)
[2016-08-18] MEDS: PARoxetine HCL 20 MG TAB PO SCH (08:16)
[2016-08-18] MEDS: FUROSEMIDE 20 MG TAB PO SCH (08:16)
[2016-08-18] MEDS: ARTIFICIAL TEARS OPTH SOLN 15 ML BTL EACH EYE SCH ×3 (08:16→18:00)
[2016-08-18] MEDS: SODIUM CHLORIDE 0.9% FLUSH 10 ML FLUSH SCH ×2 (08:59→20:26)
--- NOTE | 2016-08-18 10:46 | PD.CARD.PN ---
Subjective Subjective Remarks Extubated over night, no chest pain, no shortness of breath No events on telemetry over night Objective Medications Current Medications Medications (Trade) Dose Ordered Sig/Michael Route Start Time Stop Time Status Last Admin (Ecotrin Ec) 81 mg DAILY PO 08/16/16 09:00 08/18/16 08:15 (Coreg) 25 mg Q12HR PO 08/15/16 21:00 08/18/16 08:15 (Lanoxin) 0.125 mg DAILY@08 PO 08/16/16 08:00 08/18/16 08:00 (Ferrous Sulfate) 325 mg DAILY PO 08/16/16 09:00 08/18/16 08:15 (Lasix) 10 mg DAILY PO 08/16/16 09:00 08/18/16 08:16 (Prinivil) 5 mg DAILY PO 08/16/16 09:00 08/18/16 08:15 (Phenergan) 25 mg BID PRN PO 08/15/16 19:15 (NS Flush) 2 ml UNSCH PRN .XX 08/15/16 19:15 (NS Flush) 2 ml BID .XX 08/15/16 21:00 08/18/16 08:59 (Tylenol) 650 mg Q6H PRN PO 08/15/16 19:15 (Ativan Inj) 2 mg Q4H PRN IV 08/15/16 19:15 08/17/16 18:37 (Tears Naturale Opth Soln) 1 drop TID EACH EYE 08/16/16 09:00 08/18/16 08:16 (Zofran Inj) 4 mg Q6H PRN IV 08/15/16 19:15 (Reglan Inj) 5 mg Q6H PRN IV 08/15/16 19:15 (Colace Liq) 100 mg Q12H G-TUBE 08/15/16 21:00 08/18/16 08:14 (Heparin Inj) 5,000 units Q12H SQ 08/15/16 21:00 08/18/16 08:15 Miscellaneous Information 1 Q361D XX 08/15/16 19:15 (Chlorhexidine 2% Cloth) 3 pack Taper DAILY@04 TOP 08/16/16 04:00 08/12/17 03:59 08/18/16 03:33 Chlorhexidine Gluconate 3 pack 3 pack UNSCH PRN TOP 08/15/16 19:15 (Diprivan 1000 Mg/100ml Inj) 100 ml @ 0 mls/hr TITRATE IV 08/15/16 19:15 08/17/16 12:19 (Pill Splitter) 1 ea UNSCH PRN OTHER 08/15/16 19:30 (Protonix) 20 mg DAILY PO 08/16/16 09:00 08/18/16 08:16 (Paxil) 20 mg DAILY PO 08/16/16 09:00 08/18/16 08:16 (Pravachol) 40 mg DAILY PO 08/16/16 09:00 08/18/16 08:15 Vital Signs / I&O Vital Signs Date Time Temp Pulse Resp B/P Pulse Ox O2 Delivery O2 Flow Rate FiO2 08/18/16 10:00 74 08/18/16 08:00 97.7 87 23 146/66 98 08/18/16 08:00 87 08/18/16 07:00 Room Air 08/18/16 06:00 84 08/18/16 04:00 98.2 81 24 112/59 95 08/18/16 04:00 81 08/18/16 03:33 100 21 08/18/16 03:00 100 08/18/16 02:00 94 08/18/16 01:00 100 Nasal Cannula 2.00 08/18/16 01:00 100 Nasal Cannula 2.00 08/18/16 00:00 95 08/18/16 00:00 98.7 95 23 129/63 100 08/17/16 23:45 98 Nasal Cannula 4 08/17/16 23:45 98 Nasal Cannula 4.00 08/17/16 23:45 100 Nasal Cannula 4.00 08/17/16 22:00 86 08/17/16 20:35 99 35 08/17/16 20:00 98.9 79 21 135/69 100 08/17/16 20:00 79 08/17/16 19:00 100 Mechanical Ventilator 35 08/17/16 18:00 88 08/17/16 17:35 35 08/17/16 16:43 100 35 08/17/16 16:00 59 08/17/16 16:00 97.6 59 16 150/65 100 08/17/16 14:00 60 08/17/16 12:00 97.6 58 16 150/67 100 08/17/16 12:00 58 I/O 08/17/16 08/17/16 08/17/16 08/18/16 08/18/16 08/18/16 07:00 15:00 23:00 07:00 15:00 23:00 Intake Total 114 ml 227 ml 96 ml 10 ml Output Total 125 ml 150 ml 225 ml 150 ml Balance -11 ml 77 ml -129 ml -140 ml Intake IV Total 114 ml 167 ml 36 ml 10 ml Tube Irrigant 60 ml 60 ml Output Urine Total 125 ml 150 ml 225 ml 150 ml # Bowel Movements 0 0 0 0 Physical Exam GENERAL: NAD SKIN: Warm and dry. HEAD: Atraumatic. Normocephalic. EYES: Pupils equal and round. No scleral icterus. No injection or drainage. ENT: No nasal bleeding or discharge. Mucous membranes pink and moist. NECK: Trachea midline. No JVD. CARDIOVASCULAR: Regular rate and rhythm. RESPIRATORY: No accessory muscle use. Clear to auscultation. Breath sounds equal bilaterally. GASTROINTESTINAL: Abdomen soft, non-tender, nondistended. Hepatic and splenic margins not palpable. MUSCULOSKELETAL: Extremities without clubbing, cyanosis, or edema. No obvious deformities. Right femoral no hematoma/bruit, neurovascularly intact distally NEUROLOGICAL: Awake and alert. No obvious cranial nerve deficits. Motor grossly within normal limits. Five out of 5 muscle strength in the arms and legs. Normal speech. PSYCHIATRIC: Appropriate mood and affect; insight and judgment normal. Laboratory Laboratory Tests Test 08/15/16 08/15/16 08/15/16 08/16/16 15:30 16:36 22:20 03:20 White Blood Count 7.8 TH/MM3 9.1 TH/MM3 (4.0-11.0) (4.0-11.0) Red Blood Count 4.11 MIL/MM3 4.05 MIL/MM3 (4.00-5.30) (4.00-5.30) Hemoglobin 11.5 GM/DL 11.2 GM/DL (11.6-15.3) (11.6-15.3) Hematocrit 35.2 % 34.3 % (35.0-46.0) (35.0-46.0) Mean Corpuscular Volume 85.6 FL 84.8 FL (80.0-100.0) (80.0-100.0) Mean Corpuscular Hemoglobin 27.8 PG 27.7 PG (27.0-34.0) (27.0-34.0) Mean Corpuscular Hemoglobin 32.5 % 32.7 % Concent (32.0-36.0) (32.0-36.0) Red Cell Distribution Width 15.6 % 16.0 % (11.6-17.2) (11.6-17.2) Platelet Count 175 TH/MM3 137 TH/MM3 (150-450) (150-450) Mean Platelet Volume 7.9 FL 8.0 FL (7.0-11.0) (7.0-11.0) Neutrophils (%) (Auto) 40.7 % 78.1 % (16.0-70.0) (16.0-70.0) Lymphocytes (%) (Auto) 46.7 % 11.3 % (9.0-44.0) (9.0-44.0) Monocytes (%) (Auto) 9.7 % (0.0-8.0) 9.8 % (0.0-8.0) Eosinophils (%) (Auto) 2.2 % (0.0-4.0) 0.6 % (0.0-4.0) Basophils (%) (Auto) 0.7 % (0.0-2.0) 0.2 % (0.0-2.0) Neutrophils # (Auto) 3.2 TH/MM3 7.1 TH/MM3 (1.8-7.7) (1.8-7.7) Lymphocytes # (Auto) 3.6 TH/MM3 1.0 TH/MM3 (1.0-4.8) (1.0-4.8) Monocytes # (Auto) 0.8 TH/MM3 0.9 TH/MM3 (0-0.9) (0-0.9) Eosinophils # (Auto) 0.2 TH/MM3 0.1 TH/MM3 (0-0.4) (0-0.4) Basophils # (Auto) 0.1 TH/MM3 0.0 TH/MM3 (0-0.2) (0-0.2) CBC Comment DIFF FINAL DIFF FINAL Differential Comment Prothrombin Time 13.6 SEC (9.8-11.6) Prothromb Time International 1.2 RATIO Ratio Activated Partial 31.1 SEC Thromboplast Time (24.3-30.1) Sodium Level 139 MEQ/L 136 MEQ/L (136-145) (136-145) Potassium Level 4.0 MEQ/L 4.0 MEQ/L (3.5-5.1) (3.5-5.1) Chloride Level 102 MEQ/L 101 MEQ/L (98-107) (98-107) Carbon Dioxide Level 27.4 MEQ/L 24.4 MEQ/L (21.0-32.0) (21.0-32.0) Anion Gap 10 MEQ/L (5-15) 11 MEQ/L (5-15) Blood Urea Nitrogen 12 MG/DL (7-18) 15 MG/DL (7-18) Creatinine 1.02 MG/DL 0.91 MG/DL (0.50-1.00) (0.50-1.00) Estimat Glomerular Filtration 52 ML/MIN (>89) 60 ML/MIN (>89) Rate Random Glucose 113 MG/DL 120 MG/DL (74-106) (74-106) Calcium Level 8.1 MG/DL 8.6 MG/DL (8.5-10.1) (8.5-10.1) Magnesium Level 2.2 MG/DL 2.4 MG/DL (1.5-2.5) (1.5-2.5) Total Bilirubin 0.4 MG/DL 0.6 MG/DL (0.2-1.0) (0.2-1.0) Aspartate Amino Transf 22 U/L (15-37) 58 U/L (15-37) (AST/SGOT) Alanine Aminotransferase 19 U/L (10-53) 23 U/L (10-53) (ALT/SGPT) Alkaline Phosphatase 108 U/L 89 U/L (45-117) (45-117) Total Creatine Kinase 107 U/L (26-192) Creatine Kinase MB 1.6 NG/ML (0.5-3.6) Troponin I 0.29 NG/ML (0.02-0.05) B-Type Natriuretic Peptide 310 PG/ML (0-100) Total Protein 7.1 GM/DL 7.1 GM/DL (6.4-8.2) (6.4-8.2) Albumin 3.4 GM/DL 3.4 GM/DL (3.4-5.0) (3.4-5.0) Digoxin Level 0.8 NG/ML (0.8-2.0) Blood Gas Puncture Site RT BRACHIAL Blood Gas Patient Temperature 98.6 Blood Gas HCO3 23 mmol/L (22-26) Blood Gas Base Excess -0.3 mmol/L (-2-2) Blood Gas Oxygen Saturation 99 % (90-100) Arterial Blood pH 7.49 (7.380-7.420) Arterial Blood Partial 30 mmHg (38-42) Pressure CO2 Arterial Blood Partial 499 mmHG Pressure O2 (61-120) Arterial Blood Oxygen Content 16.3 Vol % (12.0-20.0) Arterial Blood 0.9 % (0-4) Carboxyhemoglobin Arterial Blood Methemoglobin 0.5 % (0-2) Blood Gas Hemoglobin 10.8 G/DL (12.0-16.0) Oxygen Delivery Device VENTILATOR Blood Gas Ventilator Setting AC/16/500/PEEP+5 Blood Gas Inspired Oxygen 100 % Nasal Screen MRSA (PCR) MRSA NOT DETECTED (NOT DETECT) Phosphorus Level 3.4 MG/DL (2.5-4.9) Test 08/16/16 08/17/16 08/17/16 07:08 05:14 05:18 Troponin I 7.14 NG/ML (0.02-0.05) Sodium Level 137 MEQ/L (136-145) Potassium Level 3.8 MEQ/L (3.5-5.1) Chloride Level 101 MEQ/L (98-107) Carbon Dioxide Level 28.1 MEQ/L (21.0-32.0) Anion Gap 8 MEQ/L (5-15) Blood Urea Nitrogen 17 MG/DL (7-18) Creatinine 0.98 MG/DL (0.50-1.00) Estimat Glomerular Filtration 55 ML/MIN (>89) Rate Random Glucose 111 MG/DL (74-106) Calcium Level 8.5 MG/DL (8.5-10.1) Magnesium Level 2.3 MG/DL (1.5-2.5) Total Bilirubin 0.9 MG/DL (0.2-1.0) Aspartate Amino Transf 52 U/L (15-37) (AST/SGOT) Alanine Aminotransferase 22 U/L (10-53) (ALT/SGPT) Alkaline Phosphatase 80 U/L (45-117) Total Protein 7.0 GM/DL (6.4-8.2) Albumin 3.1 GM/DL (3.4-5.0) White Blood Count 10.7 TH/MM3 (4.0-11.0) Red Blood Count 4.17 MIL/MM3 (4.00-5.30) Hemoglobin 11.7 GM/DL (11.6-15.3) Hematocrit 35.4 % (35.0-46.0) Mean Corpuscular Volume 84.9 FL (80.0-100.0) Mean Corpuscular Hemoglobin 28.1 PG (27.0-34.0) Mean Corpuscular Hemoglobin 33.1 % Concent (32.0-36.0) Red Cell Distribution Width 16.0 % (11.6-17.2) Platelet Count 132 TH/MM3 (150-450) Mean Platelet Volume 7.8 FL (7.0-11.0) Neutrophils (%) (Auto) 74.8 % (16.0-70.0) Lymphocytes (%) (Auto) 12.8 % (9.0-44.0) Monocytes (%) (Auto) 11.5 % (0.0-8.0) Eosinophils (%) (Auto) 0.6 % (0.0-4.0) Basophils (%) (Auto) 0.3 % (0.0-2.0) Neutrophils # (Auto) 8.0 TH/MM3 (1.8-7.7) Lymphocytes # (Auto) 1.4 TH/MM3 (1.0-4.8) Monocytes # (Auto) 1.2 TH/MM3 (0-0.9) Eosinophils # (Auto) 0.1 TH/MM3 (0-0.4) Basophils # (Auto) 0.0 TH/MM3 (0-0.2) CBC Comment DIFF FINAL Differential Comment Assessment and Plan Problem List: (1) AICD lead malfunction (2) CAD (coronary artery disease) (3) Ischemic cardiomyopathy (4) Paroxysmal atrial fibrillation (5) Elevated troponin I level Assessment and Plan 1) Cardiac catheterization done for elevated troponin, not significantly different from 2008 No lesions felt to be the cause of elevated troponin 2) Elevated troponin most likely due to AICD firing 70+ times 3) Doing well post-cath, will sign off from an interventional cardiology standpoint, will leave further management to critical care team and Dr. Cordova Please call with questions Problem Qualifiers (1) AICD lead malfunction: Qualified Code: T82.110S - AICD lead malfunction, sequela (2) CAD (coronary artery disease): Qualified Code: I25.10 - Coronary artery disease involving [place] coronary artery of [place] heart without angina pectoris Scout Navarro DO August 18, 2016 10:46
--- NOTE | 2016-08-18 11:20 | HHI.CCPN ---
Subjective Remarks/Hospital Course 76-year-old female presents to emergency department via EMS after her AICD fired 72 times prior to EMS arrival. EMS states when they arrived the patient noted her AICD had fired several times. EMS states they placed the patient on cardiac telemetry monitoring, the patient had a sinus rhythm that varied between 60 and 100, with no obvious arrhythmias, however, they do note her AICD fired several times. EMS administered 2 mg of Ativan on scene, they then called medical control and spoke with Dr. Boyle, who stated the patient did have 2 more milligrams of Ativan intravenously for her discomfort secondary to the AICD firing. Upon arrival nursing staff stated that the patient was awake and alert, however, after they transferred her from the stretcher to the bed, the patient went apneic, stopped talking, and felt to be pulseless. CPR was initiated by nursing staff however when the ER attending examined the patient she had a palpable pulse. Intubated for airway protection as well as comfort due to malfunctioning AICD. SUBJ 08/16: Note from Dr. Nettles indicates ICD had been deactivated. Consult from Dr. Cordova, EP is pending. Sedated with propofol. Troponin elevated to 7.2. Dr. Nettles aware. Most likely from recurrent AICD firing 08/17: Plan is for labour market economist today to define coronary anatomy, +/- lead reposition. 08/18: Cardiac cath -> medical therapy only. EP service to adjust ICD saturday. Extubated last night, breathing comfortably. Objective Vital Signs Date Time Temp Pulse Resp B/P Pulse Ox O2 Delivery O2 Flow Rate FiO2 08/18/16 10:00 74 08/18/16 08:00 97.7 23 146/66 98 08/18/16 07:00 Room Air 08/18/16 03:33 21 08/18/16 01:00 2.00 Intake and Output 08/17/16 08/17/16 08/18/16 08:00 16:00 00:00 Intake Total 114 ml 227 ml 96 ml Output Total 125 ml 150 ml 225 ml Balance -11 ml 77 ml -129 ml Result Diagram: 08/17/16 0518 08/17/16 0514 Objective Remarks GENERAL: Sedated and intubated elderly woman SKIN: Warm and dry. HEAD: Normocephalic. NECK: Supple, trachea midline. Airway widely patent, no stridor. CARDIOVASCULAR: Regular rate and rhythm without murmurs, gallops, or rubs. L upper chest AICD. RESPIRATORY: Breath sounds equal bilaterally. No accessory muscle use. GASTROINTESTINAL: Abdomen soft, non-tender, nondistended. MUSCULOSKELETAL: No cyanosis, or edema. BACK: Nontender without obvious deformity. No CVA tenderness. EXTREMITIES: No clubbing cyanosis or edema NEURO: O X 3, alert. A/P Problem List: (1) Atrial fibrillation with RVR ICD Code: I48.91 Status: Acute (2) Anemia ICD Code: D64.9 Status: Acute (3) CAD (coronary artery disease) ICD Code: I25.10 Status: Acute (4) Cardiac defibrillator in place ICD Code: Z95.810 Status: Acute Assessment and Plan Respiratory failure - Intubated for an airway protection - Extubated 08/17 AICD malfunction - Interrogated. ICD deactivated per Ju Nettles note - Will need replacement by cardiology Elevated Troponin: - Cardiology Dr. Nettles. Troponin elevation most likely secondary to AICD firing multiple times - Consult from Dr. Cordova is pending at this time - Continue ASA and beta blockers, Lasix Atrial fibrillation - Hold Xarelto for AICD procedure Coronary artery disease with 3 stents - No acute event - FREDY of EKGs and cardiac enzymes Congestive heart failure/cardiomyopathy - No exacerbation - FARA inhibitor and diuretics - Hold beta gwen due to malfunction of pacemaker Hypertension - FARA inhibitor - Diuretics - Carvedilol DVT GI prophylaxis - Teds SCDs - Holding Xarelto for AICD management,? need for revision - Pepcid Overall: Breathing comfortably, lungs clear. Problem Qualifiers (1) CAD (coronary artery disease): Qualified Code: I25.10 - Coronary artery disease involving [place] coronary artery of [place] heart without angina pectoris Joni Hodges MD August 18, 2016 11:20
[2016-08-18] MEDS: ACETAMINOPHEN 325 MG TAB PO PRN (13:02)
--- NOTE | 2016-08-18 17:10 | HHI.PR ---
Subjective Remarks Feeling better Objective Vital Signs Date Time Temp Pulse Resp B/P Pulse Ox O2 Delivery O2 Flow Rate FiO2 08/18/16 12:00 97.7 73 28 133/61 97 08/18/16 12:00 73 08/18/16 10:00 74 08/18/16 08:00 97.7 87 23 146/66 98 08/18/16 08:00 87 08/18/16 07:00 Room Air 08/18/16 06:00 84 08/18/16 04:00 98.2 81 24 112/59 95 08/18/16 04:00 81 08/18/16 03:33 100 21 08/18/16 03:00 100 08/18/16 02:00 94 08/18/16 01:00 100 Nasal Cannula 2.00 08/18/16 01:00 100 Nasal Cannula 2.00 08/18/16 00:00 95 08/18/16 00:00 98.7 95 23 129/63 100 08/17/16 23:45 98 Nasal Cannula 4 08/17/16 23:45 98 Nasal Cannula 4.00 08/17/16 23:45 100 Nasal Cannula 4.00 08/17/16 22:00 86 08/17/16 20:35 99 35 08/17/16 20:00 98.9 79 21 135/69 100 08/17/16 20:00 79 08/17/16 19:00 100 Mechanical Ventilator 35 08/17/16 18:00 88 08/17/16 17:35 35 I/O 08/17/16 08/17/16 08/17/16 08/18/16 08/18/16 08/18/16 07:00 15:00 23:00 07:00 15:00 23:00 Intake Total 114 ml 227 ml 96 ml 10 ml Output Total 125 ml 150 ml 225 ml 150 ml Balance -11 ml 77 ml -129 ml -140 ml Intake IV Total 114 ml 167 ml 36 ml 10 ml Tube Irrigant 60 ml 60 ml Output Urine Total 125 ml 150 ml 225 ml 150 ml # Bowel Movements 0 0 0 0 Result Diagram: 08/17/1618 08/17/16 0514 Imaging Alert, fully oriented, extubated Lungs: ventilated Heart: S1, S2 regular, no gallop Abdomen: soft, no mass ext: no edema Current Medications Medications (Trade) Dose Ordered Sig/Michael Route Start Time Stop Time Status Last Admin (Ecotrin Ec) 81 mg DAILY PO 08/16/16 09:00 08/18/16 08:15 (Coreg) 25 mg Q12HR PO 08/15/16 21:00 08/18/16 08:15 (Lanoxin) 0.125 mg DAILY@08 PO 08/16/16 08:00 08/18/16 08:00 (Ferrous Sulfate) 325 mg DAILY PO 08/16/16 09:00 08/18/16 08:15 (Lasix) 10 mg DAILY PO 08/16/16 09:00 08/18/16 08:16 (Prinivil) 5 mg DAILY PO 08/16/16 09:00 08/18/16 08:15 (Phenergan) 25 mg BID PRN PO 08/15/16 19:15 (NS Flush) 2 ml UNSCH PRN .XX 08/15/16 19:15 (NS Flush) 2 ml BID .XX 08/15/16 21:00 08/18/16 08:59 (Tylenol) 650 mg Q6H PRN PO 08/15/16 19:15 08/18/16 13:02 (Ativan Inj) 2 mg Q4H PRN IV 08/15/16 19:15 08/17/16 18:37 (Tears Naturale Opth Soln) 1 drop TID EACH EYE 08/16/16 09:00 08/18/16 13:00 (Zofran Inj) 4 mg Q6H PRN IV 08/15/16 19:15 (Reglan Inj) 5 mg Q6H PRN IV 08/15/16 19:15 (Colace Liq) 100 mg Q12H G-TUBE 08/15/16 21:00 08/18/16 08:14 (Heparin Inj) 5,000 units Q12H SQ 08/15/16 21:00 08/18/16 08:15 Miscellaneous Information 1 Q361D XX 08/15/16 19:15 (Chlorhexidine 2% Cloth) 3 pack Taper DAILY@04 TOP 08/16/16 04:00 08/12/17 03:59 08/18/16 03:33 Chlorhexidine Gluconate 3 pack 3 pack UNSCH PRN TOP 08/15/16 19:15 (Diprivan 1000 Mg/100ml Inj) 100 ml @ 0 mls/hr TITRATE IV 08/15/16 19:15 08/17/16 12:19 (Pill Splitter) 1 ea UNSCH PRN OTHER 08/15/16 19:30 (Protonix) 20 mg DAILY PO 08/16/16 09:00 08/18/16 08:16 (Paxil) 20 mg DAILY PO 08/16/16 09:00 08/18/16 08:16 (Pravachol) 40 mg DAILY PO 08/16/16 09:00 08/18/16 08:15 Assessment and Plan Problem List: (1) Systolic CHF Status: Acute Plan: Stable. extubated Alert, fully oriented doing well (2) Atrial fibrillation with RVR Status: Acute Plan: In sinus rhythm (3) AICD lead malfunction Status: Acute Plan: LHC negative for revascularization No chest pain If stable, new lead Saturday or Saturday Problem Qualifiers (1) AICD lead malfunction: Qualified Code: T82.110S - AICD lead malfunction, Angel Lizarraga MD August 18, 2016 17:10
[2016-08-19] VITALS (12 sets, daily range): BP systolic 120–159; BP diastolic 59–74; PULSE 68–94; RESP 17–25; TEMP 97.6–98.6; O2SAT 98–100
[2016-08-19] MEDS: CHLORHEXIDINE GLUCONATE 2 % 1 PACK (2 CLOTHS) TOP SCH (04:00)
[2016-08-19] MEDS: PANTOPRAZOLE SOD 20 MG DELAYED RELEASE TAB PO SCH (08:12)
[2016-08-19] MEDS: ASPIRIN EC 81 MG TABEC PO SCH (08:12)
[2016-08-19] MEDS: DOCUSATE SODIUM 100 MG/10 ML UDC G-TUBE SCH ×2 (08:12→08:28)
[2016-08-19] MEDS: PARoxetine HCL 20 MG TAB PO SCH (08:12)
[2016-08-19] MEDS: CARVEDILOL 12.5 MG TAB PO SCH ×2 (08:12→20:20)
[2016-08-19] MEDS: FUROSEMIDE 20 MG TAB PO SCH (08:13)
[2016-08-19] MEDS: PRAVASTATIN SOD 40 MG TAB PO SCH (08:13)
[2016-08-19] MEDS: DIGOXIN 0.125 MG TAB PO SCH (08:13)
[2016-08-19] MEDS: LISINOPRIL 5 MG TAB PO SCH (08:13)
[2016-08-19] MEDS: HEPARIN SODIUM - SQ 10,000 UNITS/ML VIAL SQ SCH ×2 (08:13→20:20)
[2016-08-19] MEDS: FERROUS SULFATE 325 MG (65 MG ELEMENTAL IRON) TAB PO SCH ×2 (08:13→09:47)
[2016-08-19] MEDS: ACETAMINOPHEN 325 MG TAB PO PRN (08:13)
[2016-08-19] MEDS: SODIUM CHLORIDE 0.9% FLUSH 10 ML FLUSH SCH ×2 (08:14→20:20)
[2016-08-19] MEDS: ARTIFICIAL TEARS OPTH SOLN 15 ML BTL EACH EYE SCH ×3 (08:14→18:00)
[2016-08-19] MEDS: DOCUSATE SODIUM 100 MG CAP PO SCH ×2 (09:47→20:20)
--- NOTE | 2016-08-19 13:25 | HHI.CCPN ---
Subjective Remarks/Hospital Course 76-year-old female presents to emergency department via EMS after her AICD fired 72 times prior to EMS arrival. EMS states when they arrived the patient noted her AICD had fired several times. EMS states they placed the patient on cardiac telemetry monitoring, the patient had a sinus rhythm that varied between 60 and 100, with no obvious arrhythmias, however, they do note her AICD fired several times. EMS administered 2 mg of Ativan on scene, they then called medical control and spoke with Dr. Boyle, who stated the patient did have 2 more milligrams of Ativan intravenously for her discomfort secondary to the AICD firing. Upon arrival nursing staff stated that the patient was awake and alert, however, after they transferred her from the stretcher to the bed, the patient went apneic, stopped talking, and felt to be pulseless. CPR was initiated by nursing staff however when the ER attending examined the patient she had a palpable pulse. Intubated for airway protection as well as comfort due to malfunctioning AICD. SUBJ 08/16: Note from Dr. Nettles indicates ICD had been deactivated. Consult from Dr. Cordova, EP is pending. Sedated with propofol. Troponin elevated to 7.2. Dr. Nettles aware. Most likely from recurrent AICD firing 08/17: Plan is for energy systems laboratory director today to define coronary anatomy, +/- lead reposition. 08/18: Cardiac cath -> medical therapy only. EP service to adjust ICD saturday. Extubated last night, breathing comfortably. 08/19: Breathing comfortably, stable hemodynamics. To EP lab saturday. Objective Vital Signs Date Time Temp Pulse Resp B/P Pulse Ox O2 Delivery O2 Flow Rate FiO2 08/19/16 12:00 70 08/19/16 12:00 97.6 22 120/59 99 08/19/16 07:00 Room Air 08/18/16 03:33 21 08/18/16 01:00 2.00 Intake and Output 08/18/16 08/18/16 08/19/16 08:00 16:00 00:00 Intake Total 10 ml 350 ml 300 ml Output Total 150 ml 150 ml 225 ml Balance -140 ml 200 ml 75 ml Result Diagram: 08/17/16 0518 08/17/16 0514 Objective Remarks GENERAL: Sedated and intubated elderly woman SKIN: Warm and dry. HEAD: Normocephalic. NECK: Supple, trachea midline. Airway widely patent, no stridor. CARDIOVASCULAR: Regular rate and rhythm without murmurs, gallops, or rubs. L upper chest AICD. RESPIRATORY: Breath sounds equal bilaterally. No accessory muscle use. GASTROINTESTINAL: Abdomen soft, non-tender, nondistended. MUSCULOSKELETAL: No cyanosis, or edema. BACK: Nontender without obvious deformity. No CVA tenderness. EXTREMITIES: No clubbing cyanosis or edema NEURO: O X 3, alert. A/P Problem List: (1) Atrial fibrillation with RVR ICD Code: I48.91 Status: Acute (2) Anemia ICD Code: D64.9 Status: Acute (3) CAD (coronary artery disease) ICD Code: I25.10 Status: Acute (4) Cardiac defibrillator in place ICD Code: Z95.810 Status: Acute Assessment and Plan Respiratory failure - Intubated for an airway protection - Extubated 08/17 AICD malfunction - Interrogated. ICD deactivated per Dr. Nettles note - Will need replacement by cardiology Elevated Troponin: - Cardiology Dr. Nettles. Troponin elevation most likely secondary to AICD firing multiple times - Consult from Dr. Cordova is pending at this time - Continue ASA and beta blockers, Lasix Atrial fibrillation - Hold Xarelto for AICD procedure Coronary artery disease with 3 stents - No acute event - FREDY of EKGs and cardiac enzymes Congestive heart failure/cardiomyopathy - No exacerbation - FARA inhibitor and diuretics - Hold beta gwen due to malfunction of pacemaker Hypertension - FARA inhibitor - Diuretics - Carvedilol DVT GI prophylaxis - Teds SCDs - Holding Xarelto for AICD management,? need for revision - Pepcid Overall: Breathing comfortably, lungs clear. Cath with diffuse moderate CAD; treat medically. Problem Qualifiers (1) CAD (coronary artery disease): Qualified Code: I25.10 - Coronary artery disease involving [place] coronary artery of [place] heart without angina pectoris Joni Hodges MD August 19, 2016 13:25
--- NOTE | 2016-08-19 13:51 | HHI.PR ---
Subjective Remarks Doing good Objective Vital Signs Date Time Temp Pulse Resp B/P Pulse Ox O2 Delivery O2 Flow Rate FiO2 08/19/16 12:00 70 08/19/16 12:00 97.6 70 22 120/59 99 08/19/16 10:00 74 08/19/16 08:00 92 08/19/16 08:00 98.1 88 20 143/68 99 08/19/16 07:00 99 Room Air 08/19/16 06:00 82 08/19/16 04:00 98.4 88 18 147/67 99 08/19/16 04:00 80 08/19/16 02:00 80 08/19/16 00:00 98.6 82 25 134/60 98 08/19/16 00:00 82 08/18/16 22:00 78 08/18/16 20:00 74 08/18/16 20:00 98.4 74 20 123/61 97 08/18/16 19:00 98 Room Air 08/18/16 18:00 82 08/18/16 16:00 97.9 76 22 139/65 99 08/18/16 16:00 76 08/18/16 14:00 67 I/O 08/18/16 08/18/16 08/18/16 08/19/16 08/19/16 08/19/16 07:00 15:00 23:00 07:00 15:00 23:00 Intake Total 10 ml 350 ml 300 ml 550 ml Output Total 150 ml 150 ml 225 ml 225 ml Balance -140 ml 200 ml 75 ml 325 ml Intake Oral 350 ml 300 ml 550 ml IV Total 10 ml 0 ml 0 ml Output Urine Total 150 ml 150 ml 225 ml 225 ml # Bowel Movements 0 0 0 Result Diagram: 08/17/1618 08/17/1614 Imaging Alert, fully oriented Lungs: ventilated Heart: S1, S2 regular Abdomen: soft, no mass Ext: no edema Left subclavicular area with device Current Medications Medications (Trade) Dose Ordered Sig/Michael Route Start Time Stop Time Status Last Admin (Ecotrin Ec) 81 mg DAILY PO 08/16/16 09:00 08/19/16 08:12 (Coreg) 25 mg Q12HR PO 08/15/16 21:00 08/19/16 08:12 (Lanoxin) 0.125 mg DAILY@08 PO 08/16/16 08:00 08/19/16 08:13 (Ferrous Sulfate) 325 mg DAILY PO 08/16/16 09:00 08/19/16 09:47 (Lasix) 10 mg DAILY PO 08/16/16 09:00 08/19/16 08:13 (Prinivil) 5 mg DAILY PO 08/16/16 09:00 08/19/16 08:13 (Phenergan) 25 mg BID PRN PO 08/15/16 19:15 (NS Flush) 2 ml UNSCH PRN .XX 08/15/16 19:15 (NS Flush) 2 ml BID .XX 08/15/16 21:00 08/19/16 08:14 (Tylenol) 650 mg Q6H PRN PO 08/15/16 19:15 08/19/16 08:13 (Ativan Inj) 2 mg Q4H PRN IV 08/15/16 19:15 08/17/16 18:37 (Tears Naturale Opth Soln) 1 drop TID EACH EYE 08/16/16 09:00 08/19/16 13:00 (Zofran Inj) 4 mg Q6H PRN IV 08/15/16 19:15 (Reglan Inj) 5 mg Q6H PRN IV 08/15/16 19:15 (Heparin Inj) 5,000 units Q12H SQ 08/15/16 21:00 08/19/16 08:13 Miscellaneous Information 1 Q361D XX 08/15/16 19:15 (Chlorhexidine 2% Cloth) 3 pack Taper DAILY@04 TOP 08/16/16 04:00 08/12/17 03:59 08/19/16 04:00 Chlorhexidine Gluconate 3 pack 3 pack UNSCH PRN TOP 08/15/16 19:15 (Diprivan 1000 Mg/100ml Inj) 100 ml @ 0 mls/hr TITRATE IV 08/15/16 19:15 08/17/16 12:19 (Pill Splitter) 1 ea UNSCH PRN OTHER 08/15/16 19:30 (Protonix) 20 mg DAILY PO 08/16/16 09:00 08/19/16 08:12 (Paxil) 20 mg DAILY PO 08/16/16 09:00 08/19/16 08:12 (Pravachol) 40 mg DAILY PO 08/16/16 09:00 08/19/16 08:13 (Colace) 100 mg BID PO 08/19/16 10:00 08/19/16 09:47 Assessment and Plan Problem List: (1) Systolic CHF Status: Acute Plan: No SOB. Doing better Possible new ICD tomorrow (2) Atrial fibrillation with RVR Status: Acute Plan: Regular rhythm (3) AICD lead malfunction Status: Acute Plan: Case discussed with patient and family. Possible new device and new lead tomorrow. Problem Qualifiers (1) AICD lead malfunction: Qualified Code: T82.110S - AICD lead malfunction, Angel Lizarraga MD August 19, 2016 13:51
[2016-08-19] MEDS ORDERED: POVIDONE IODINE 5% (ANTISEPSIS KIT) 4 APPLICATIONS EACH NARE SCH (14:00)
[2016-08-19] MEDS ORDERED: MUPIROCIN 2% OINT 1 APPLIC/GM SYR NASAL SCH (14:00)
[2016-08-19] MEDS ORDERED: CHLORHEXIDINE GLUCONATE 2 % 1 PACK (2 CLOTHS) TOP SCH (14:00)
[2016-08-20] VITALS (12 sets, daily range): BP systolic 128–147; BP diastolic 58–82; PULSE 72–90; RESP 18–24; TEMP 98.1–98.6; O2SAT 97–98
[2016-08-20] MEDS: CHLORHEXIDINE GLUCONATE 2 % 1 PACK (2 CLOTHS) TOP SCH (03:01)
[2016-08-20] MEDS: HEPARIN SODIUM - SQ 10,000 UNITS/ML VIAL SQ SCH ×2 (09:00→20:52)
[2016-08-20] MEDS: FUROSEMIDE 20 MG TAB PO SCH (10:27)
[2016-08-20] MEDS: ASPIRIN EC 81 MG TABEC PO SCH (10:27)
[2016-08-20] MEDS: PARoxetine HCL 20 MG TAB PO SCH (10:27)
[2016-08-20] MEDS: PRAVASTATIN SOD 40 MG TAB PO SCH (10:27)
[2016-08-20] MEDS: FERROUS SULFATE 325 MG (65 MG ELEMENTAL IRON) TAB PO SCH (10:28)
[2016-08-20] MEDS: LISINOPRIL 5 MG TAB PO SCH (10:28)
[2016-08-20] MEDS: CARVEDILOL 12.5 MG TAB PO SCH ×2 (10:28→20:52)
[2016-08-20] MEDS: SODIUM CHLORIDE 0.9% FLUSH 10 ML FLUSH SCH ×2 (10:28→20:53)
[2016-08-20] MEDS: DIGOXIN 0.125 MG TAB PO SCH (10:28)
[2016-08-20] MEDS: ARTIFICIAL TEARS OPTH SOLN 15 ML BTL EACH EYE SCH ×3 (10:29→18:00)
[2016-08-20] MEDS: PANTOPRAZOLE SOD 20 MG DELAYED RELEASE TAB PO SCH (10:39)
[2016-08-20] MEDS: DOCUSATE SODIUM 100 MG CAP PO SCH ×2 (10:39→20:52)
--- NOTE | 2016-08-20 11:53 | PD.TRANSFR ---
Transfer Summary Admission Date August 15, 2016 at 17:53 Admitting Diagnosis AICD malfunction, possible cardiac pulmonary arrest Diagnoses: (1) AICD lead malfunction Diagnosis: Principal (2) Ischemic cardiomyopathy Diagnosis: Principal (3) Elevated troponin I level Diagnosis: Principal (4) Systolic CHF Diagnosis: Principal (5) CAD (coronary artery disease) Diagnosis: Principal (6) Paroxysmal atrial fibrillation Diagnosis: Principal Transfer Summary/Subjective 76-year-old female presents to emergency department via EMS after her AICD fired 72 times prior to EMS arrival. EMS states when they arrived the patient noted her AICD had fired several times. EMS states they placed the patient on cardiac telemetry monitoring, the patient had a sinus rhythm that varied between 60 and 100, with no obvious arrhythmias, however, they do note her AICD fired several times. EMS administered 2 mg of Ativan on scene, they then called medical control and spoke with Dr. Boyle, who stated the patient did have 2 more milligrams of Ativan intravenously for her discomfort secondary to the AICD firing. Upon arrival nursing staff stated that the patient was awake and alert, however, after they transferred her from the stretcher to the bed, the patient went apneic, stopped talking, and felt to be pulseless. CPR was initiated by nursing staff however when the ER attending examined the patient she had a palpable pulse. Intubated for airway protection as well as comfort due to malfunctioning AICD. SUBJ 08/16: Note from Dr. Nettles indicates ICD had been deactivated. Consult from Dr. Cordova, EP is pending. Sedated with propofol. Troponin elevated to 7.2. Dr. Nettles aware. Most likely from recurrent AICD firing 08/17: Plan is for rd lab technician today to define coronary anatomy, +/- lead reposition. 08/18: Cardiac cath -> medical therapy only. EP service to adjust ICD saturday. Extubated last night, breathing comfortably. 08/19: Breathing comfortably, stable hemodynamics. To EP lab saturday. 08/20: Resting comfortably on bed. Plan for EP lab today for new AICD/lead placement. Probable CIC transfer afterwards Objective Vital Signs Date Time Temp Pulse Resp B/P Pulse Ox O2 Delivery O2 Flow Rate FiO2 08/20/16 08:00 98.1 85 21 146/82 98 08/20/16 07:00 Room Air 08/18/16 03:33 21 08/18/16 01:00 2.00 Intake and Output 08/19/16 08/19/16 08/19/16 07:59 15:59 23:59 Intake Total 550 ml 800 ml 400 ml Output Total 225 ml 550 ml 550 ml Balance 325 ml 250 ml -150 ml Result Diagram: 08/17/16 0518 08/17/16 0514 Objective Remarks GENERAL: Lying on bed comfortably SKIN: Warm and dry. HEAD: Normocephalic. NECK: Supple, trachea midline. Airway widely patent, no stridor. CARDIOVASCULAR: Regular rate and rhythm without murmurs, gallops, or rubs. L upper chest AICD. RESPIRATORY: Breath sounds equal bilaterally. No accessory muscle use. GASTROINTESTINAL: Abdomen soft, non-tender, nondistended. MUSCULOSKELETAL: No cyanosis, or edema. BACK: Nontender without obvious deformity. No CVA tenderness. EXTREMITIES: No clubbing cyanosis or edema NEURO: AO X 3, alert. A/P Problem List: (1) Atrial fibrillation with RVR ICD Code: I48.91 Status: Acute (2) Anemia ICD Code: D64.9 Status: Acute (3) CAD (coronary artery disease) ICD Code: I25.10 Status: Acute (4) Cardiac defibrillator in place ICD Code: Z95.810 Status: Acute Assessment and Plan Respiratory failure - Intubated for an airway protection - Extubated 08/17, tolerating well AICD malfunction - Interrogated. ICD deactivated per Dr. Nettles note - AICD replacement by Dr. Cordova today Elevated Troponin: - Cardiology Dr. Nettles. Troponin elevation most likely secondary to AICD firing multiple times - EP Dr. Cordova - Continue ASA and beta blockers, Lasix Atrial fibrillation - Hold Xarelto for AICD procedure Coronary artery disease with 3 stents - No acute event - FREDY of EKGs and cardiac enzymes Congestive heart failure/cardiomyopathy - No exacerbation - FARA inhibitor and diuretics - Hold beta gwen due to malfunction of pacemaker Hypertension - FARA inhibitor - Diuretics - Carvedilol DVT GI prophylaxis - Teds SCDs - Holding Xarelto for AICD management,resume after new AICD placement - Pepcid Overall: Breathing comfortably, lungs clear. Cath with diffuse moderate CAD; treat medically. [facility] consulted to assume care 5/8/17. Problem Qualifiers (1) CAD (coronary artery disease): Qualified Code: I25.10 - Coronary artery disease involving [place] coronary artery of [place] heart without angina pectoris Christina Nguyen MD August 20, 2016 11:53
[2016-08-20] MEDS ORDERED: PROPOFOL 200 MG/20 ML AMP IV ONE (16:25)
[2016-08-20] MEDS ORDERED: LIDOCAINE HCL 2% 50 ML VIAL ONE (16:42)
[2016-08-20] MEDS ORDERED: VANCOMYCIN 500 MG VIAL ONE (16:42)
[2016-08-20] MEDS ORDERED: SODIUM CHLOR 0.9% 250 ML INJ 250 ML ONE (16:42)
[2016-08-20] MEDS ORDERED: VANCOMYCIN HCL 1000 MG VIAL ONE (16:42)
[2016-08-20] MEDS ORDERED: ceFAZolin INJ 1,000 MG VIAL ONE (16:42)
--- NOTE | 2016-08-20 17:48 | CATHPROC ---
[employer] HIS Report Study Information Study Number Admission Scheduled Start Study Start [id number] 08/15/2016 08/20/2016 Aug 20 2016 4:17PM Referring Institution Admit Source Facility Department 1 Other [facility] Sewing Department Supervisor Physician and Clinical Staff Initial Angel Aguilar Cnc Mechanic Liliya Hinton RCIS Cnc Mechanic Tyrone Carballo,RT(R) Other Anesthesia, JAVA SYSTEMS ANALYST Recorder Shaneka Fraire,ALICE Scrub Lilo Willoughby,RT(R) TECH2 Procedures Performed Procedure Location (Site) Vessel Name Lead Insertion Venogram Subclav. Vein (Lft Subclavian Vein Equipment Time Webmaster Description Size Mfg Part Number Used/Scraped DERMABOND, ADHESIVE SKIN 16:21 CORDIS/PACER * [id number] Used GLUE MINI WIRE, HYDROSTEER 150CM 17:15 DAIG/[employer]. [employer]ICAL 150CM [id number] Used ANGLED GLIDE 16:21 MicroEnsure SUTURE, STRIP PLUS 1/2" * [id number] Used 16:21 WhiteFence PACER RAMOS, LIMB * [id number] Used 16:21 [employer] PACER PACK, PACER CUSTOM * [id number] Used 17:19 Optovue PACER SAFE SHEATH, FR7, 13CM FR 7 [id number] Used 17:20 Optovue PACER SAFE SHEATH, LONG, FR7, 25CM FR 7 [id number] Used 16:52 Needle Sponge Count 2 2 Used 16:53 Needle Sponge Count 2 22 Used 16:52 Needle Sponge Count 20 200 Used 17:33 Needle Sponge Count 3 3 Used 17:13 NYCOMED OMNIPAQUE, 300 MG, 50ML 50ML [id number] Used SUTURE, 0 ETHIBOND [CT1] (CX21D), 8pk SUTURE, 2-0 VICRYL [CT1] (HQW897H) SUTURE, 2-0 VICRYL [CT1] (TIA922H) SUTURE, 4-0 VICRYL [PS2] ([id number]) 16:21 PANG MEDICAL BLANKET,WARM AIR CCL * [id number] Used DEFIBRILLATOR, FORTIFY 17:27 [employer] VVEVVVIRV [id number] Used ASSURA VR LEAD, DURATA ACTIVE FIXATION 17:20 [employer]ICAL 58CM 7122Q-[id number] Used 7122Q/58 17:15 [employer] SHEATH, EPS, FR5 FAST CATH FR 5 [id number] Used [facility] PAD, ELECTROSURGICAL 16:21 * [id number] Used SURGICAL GROUNDING ORANGE 16:57 VITATRON MEDTRONIC PLASMABLADE, PEAD 3.0S * [id number] Used 16:21 ZOLL [employer] BRIELLE. ELECTRODE, PRO-PADZ BIPHASIC * [id number] Used Equipment Model, Serial, Lot Number and Expiration Data Description Model Number Serial Number Lot Number Expiration Date DEFIBRILLATOR, CANDICEIFY ASSURA [id number] 07-13-2017 VR LEAD, DURATA ACTIVE FIXATION 7122q-58 [id number] 06-12-2017 7122Q/58 History: Current Medications Medication Dosage/Unit Route Frequency Last Date/Time Taken LASIX LISINOPRIL K-Dur Statins (any) XARELTO ASA DIGOXIN CARVEDILOL History: Allergies Allergy Reaction Codeine BLINDNESS, PALPITATIONS, DIAPHORESIS History: Risk Factors Family History of Hypertension Dyslipidemia Previous OR Previous Heart Failure Premature CAD Yes Yes Yes No Yes Prior Valve Prior PCI Prior PCIDate Prior CABG Surgery No Yes 11/28/2007 No Cerebrovascular Peripheral Artery Chronic Lung On Dialysis Diabetes Disease Disease Disease No No No No No History: Symptoms/Diagnosis Selection Items Chest pain Palpitations SOB Syncope History: CV Disease Selection Items Cardiomyopathy dilated Known CAD History: Stress Tests Stress or Imaging Studies Performed No History: Arrhythmias Selection Items Atrial fibrillation History: Other Disease Selection Items CAD HTN History: Other Current Smoker Method Quit No Cigarettes 25 Years Ago Labs Hgb (g/dl) Hct (%) RBC (MIL/MM3) WBC (l/cumm) Platelets (thousands) 12.00-18.00 37.00-55.00 4.80-6.20 4.80-10.80 140.00-450.00 11.0 35 4 10 132 Glucose (mg/dl) BUN (mg/dl) Creatinine (mg/dl) BUN:Creatinine (1:x) 60.00-110.00 8.00-20.00 0.10-9.00 10.00-20.00 111 17 0.9 18.9 Na (meq/l) K (meq/l) 138.00-146.00 3.80-5.10 137 3.8 INR (PTT:PT) 0.50-2.00 1.2 Medication Medication Total Dose (Bolus/Oral) Medication Total Dosage/Unit 2% XYLOCAINE 50 mL Medications (Bolus/Oral) Medication Time Given Dosage/Unit Administered By Reason 2% XYLOCAINE 08/20/2016 5:03:38 PM 50 mL Angel Cordova 50 mL 2% XYLOCAINE given in lab by Angel Cordova in Left upper chest via Subcutaneous. Ordered by Angel Huffman. Medication (Drip) Medication Time Given Dosage/Unit Concentration/Unit Diluent (ml) Solution ANCEF 08/20/2016 4:50:00 PM 2 g 2 g ANCEF given by Anesthesia, JAVA SYSTEMS ANALYST via Peripheral IV. Ordered by Angel Cordova. Reason: As per physi cians verbal order. VANCOMYCIN DRIP 08/20/2016 4:53:18 PM 1 g 1 g VANCOMYCIN DRIP given in lab by Anesthesia, JAVA SYSTEMS ANALYST via Peripheral IV. Ordered by Angel Cordova. Smoaks son: As per physicians verbal order. Initial Case Assessment Cardiovascular HR Rhythm NIBP Chest Pain 88 af 170/78 0 Edema Present Skin color Skin None Normal Warm Dry Circulatory - Right Pulses Radial 1 Scale (0,1,2,3,4,d) Circulatory - Left Pulses Radial 1 Scale (0,1,2,3,4,d) Circulatory - Lower Extremities Color Lower Right Color Lower Left Normal Normal Neurological State Oriented to time-place- Alert Moves all extremities person Respiration - General Respiration Rate SpO2 (%) (B/min) 20 96 Final Case Assessment Cardiovascular HR Rhythm NIBP Chest Pain 76 sr 124/58 0 Edema Present Skin color Skin None Normal Warm Dry Circulatory - Right Pulses Radial 1 Scale (0,1,2,3,4,d) Circulatory - Left Pulses Radial 1 Scale (0,1,2,3,4,d) Circulatory - Lower Extremities Color Lower Right Color Lower Left Normal Normal Neurological State Lethargic Moves all extremities Respiration - General Respiration Rate SpO2 (%) O2 (lpm) (B/min) 16 100 8 Chronological Log Time Study Chronological Log 16:25:36 Patient arrived via Bed. 16:25:38 Patient arrived via Bed. 16:25:43 Patient Name, D.O.B, / Armband Verified By R.N. 16:25:45 Consent signed by the physician and the patient and verified by the Sewing Department Supervisor staff. 16:25:47 Pre-op and post- op instructions given; patient acknowledges understanding of instructions. 16:27:51 Verbal Stimulation=2 Physical Stimulation=2 Airway=2 Respiration=2 TOTAL=8. (0=absent, 1=li mited, 2=present) 16:27:56 Patient has been NPO for More than 6Hrs. 16:29:00 Skin Breakdown- non per pt 16:29:04 Patient Warmer Placed on the Table. 16:29:07 Disposable Defibrillator Pads Placed On Patient. 16:29:11 Mary Alice Prominences Protected 16:29:15 A # 20 IV was noted in the Antecubital (left). Grade = 0 0.9ns kvo 16:29:18 A # 20 IV was noted in the Hand (right). Grade = 0 0.9ns kvo 16:29:21 History and physical on the chart or being dictated. 16:36:19 St Son rep present. Assessment: Initial Case, HR=88 BPM, Rhythm=af, KXUK=995/78 mmhg, Chest Pain=0, Edema=None, Col or=Normal, Skin = Warm, Dry Right Pulses: Radial=1 Left Pulses: Radial=1 16:39:37 Lower Right Extremities: Color=Normal Lower Left Extremities: Color=Normal Neurological: State=Alert, Ox3, [place] Respiration: Resp=20 B/min, SpO2=96 % 2 g ANCEF given by Anesthesia, JAVA SYSTEMS ANALYST via Peripheral IV. Ordered by Angel Cordova. Reason: As per physicians verbal 16:50:00 order. 16:50:07 Table restraints applied according to hospital policy 16:50:12 2% CHLORHEXIDINE GLUCONATE WASH AND NASAL SWIPE DONE PRIOR TO PROCEDURE. 16:50:14 Bovie ground pad applied to: right hip First Sponge And Instrument Count Done by Angel Cordova. 16:50:38 Hypo's: 2, Sponges: 20, Bovie/scratch: 2 Sutures: 10, Blades: 1, Instruments: 26, Syveck Patches: 0 Verified w DB 16:50:45 Left Upper Chest Prepped Times Two. 1 g VANCOMYCIN DRIP given in lab by Anesthesia, JAVA SYSTEMS ANALYST via Peripheral IV. Ordered by Silva Cordova Reason: As per 16:53:18 physicians verbal order. 16:54:16 paged 17:02:27 MD arrived. Time Out. Correct patient, procedure, procedure equipment, site and side verified with physicia n present. Time 17:03:00 concurred by MD, individual staff and JAVA SYSTEMS ANALYST. Time Out #2 - Consents verified, patient in correct position, all results are labled and displa yed, safety precautions 17:03:22 taken, antibiotics administered. Time out concurred by MD, individual staff and JAVA SYSTEMS ANALYST in procedu re 17:03:36 Case Start 17:03:38 50 mL 2% XYLOCAINE given in lab by Angel Cordova in Left upper chest via Subcutaneous. Orde red by Angel Cordova. 17:04:56 Surgical Incision Made. 17:05:02 A pocket was created at the L Upper Chest. 17:07:30 A device was explanted. 17:12:36 The Subclav. Vein (Lft was manually injected with 10 cc's of contrast. OMNIPAQUE, 300 MG, 5 0ML 50ML used. 17:13:25 Vascular access was obtained in the Subclav. Vein (Lft. 17:14:22 Wire inserted 17:14:24 A SHEATH, EPS, FR5 FAST CATH FR 5 was advanced into the Subclav. Vein (Lft using the Modifi ed [place] technique. 17:14:52 The previous wire was exchanged for a WIRE, HYDROSTEER 150CM ANGLED GLIDE 150CM. 17:15:33 Surgical Incision Made. 17:17:57 A SAFE SHEATH, FR7, 13CM FR 7 was advanced into the Fem Vein (right) using the Modified Alyssa barrington technique. 17:19:18 A LEAD, DURATA ACTIVE FIXATION 7122Q/58 58CM was inserted and positioned in the RV. 17:19:28 Lead removed A SAFE SHEATH, LONG, FR7, 25CM FR 7 was advanced into the Subclav. Vein (Lft using the Modified [place] 17:19:50 technique. 17:22:17 [place] wire out 17:23:00 A LEAD, DURATA ACTIVE FIXATION 7122Q/58 58CM was inserted and positioned in the RV. 17:23:44 Lead placement verified under fluoroscopy 17:25:40 A device was explanted. 17:26:19 DOCU called. Spoke to maureen 17:26:28 Bedside Report will be given. 17:26:46 A DEFIBRILLATOR, FORTIFY ASSURA VR [id number] was connected and placed in the pocket. 17:27:46 Previous lead was explanted. 17:28:47 Implant Procedure was performed. 17:28:51 A ICD Implant . (Single) gen change and lead replacement 17:31:13 Implantable Device card placed in patient's chart. 17:31:46 Pocket flushed with antibiotic solution Second Sponge And Instrument Count Done by Angel Cordova. 17:32:32 Hypo's: 3, Sponges: 20, Bovie/scratch: 2 Sutures: 10, Blades: 1, Instruments: 26, Syveck Patches: 0 17:34:49 Explanted device and lead returned to St Son rep 17:38:17 The pocket was closed. Final Sponge And Instrument Count Done by Angel Cordova. 17:41:28 Hypo's: 3, Sponges: 20, Bovie/scratch: 2 Sutures: 10, Blades: 1, Instruments: 26, Syveck Patches: 0 Verified w DB Assessment: Final Case, HR=76 BPM, Rhythm=sr, DXYF=961/58 mmhg, Chest Pain=0, Edema=None, [place] r=Normal, Skin = Warm, Dry Right Pulses: Radial=1 Left Pulses: Radial=1 17:42:58 Lower Right Extremities: Color=Normal Lower Left Extremities: Color=Normal Neurological: State=Lethargic, [place] Respiration: Resp=16 B/min, LeK4=655 %, O2=8 lpm 17:45:30 Steri-strips and a sterile dressing applied to site. 17:46:29 No case complications noted. 17:48:49 Defibrillator and ground pads removed. Skin intact. 17:50:46 Case End 17:57:55 Patient moved to [facility] End Study - Contrast Media Used In Study Contrast Total Opened (mL) Total Used (mL) Total Wasted (mL) Omnipaque 50 10 40 End Study - Maximum Contrast Load Max Contrast Load (mL) 332.8 End Study - Radiation Exposure Fluoro Time (minutes) 4.0 End Study - Patient Disposition Complications Transferred To Interventional Outcome No Telemetry Bed successful
[2016-08-20] MEDS ORDERED: ONDANSETRON HCL 4 MG/2 ML VIAL IV PRN (18:00)
[2016-08-20] MEDS ORDERED: ACETAMINOPHEN/CODEINE 300 MG/30 MG TAB PO PRN ×2 (18:00)
[2016-08-20] MEDS ORDERED: MIDAZOLAM HCL 2 MG/2 ML VIAL ONE (18:02)
--- NOTE | 2016-08-20 18:32 | RADRPT ---
EXAM DATE/TIME: 08/20/2016 18:12 [place] COMPARISON: CHEST SINGLE AP, August 15, 2016, 16:21. INDICATIONS : Evaluate for pneumothorax post pacemaker exchange MEDICAL HISTORY : None. SURGICAL HISTORY : Pacemaker. ENCOUNTER: Subsequent ACUITY: 1 week PAIN SCORE: 0/10 LOCATION: Bilateral chest FINDINGS: Pacemaker device is noted with control pack over the left chest. There is no evidence of pneumothorax or other complication of pacemaker manipulation. The lungs are focally clear. No pleural effusion is noted. Cardiac contour is grossly stable. CONCLUSION: No pneumothorax Patrick Wheat MD on August 20, 2016 at 18:28 Board Certified Radiologist. This report was verified electronically.
[2016-08-20] MEDS: ACETAMINOPHEN 325 MG TAB PO PRN (20:52)
[2016-08-21] VITALS (12 sets, daily range): BP systolic 140–149; BP diastolic 73–85; PULSE 58–94; RESP 20; TEMP 98.2–98.6; O2SAT 98
[2016-08-21] MEDS: ceFAZolin 2 GM PREMIX 50 ML IV SCH ×2 (01:03→09:32)
--- NOTE | 2016-08-21 07:16 | PD.CARD.PN ---
Subjective Subjective Remarks Feels okay today. No chest pain. Objective Medications Current Medications Medications (Trade) Dose Ordered Sig/Michael Route Start Time Stop Time Status Last Admin (Ecotrin Ec) 81 mg DAILY PO 08/16/16 09:00 08/20/16 10:27 (Coreg) 25 mg Q12HR PO 08/15/16 21:00 08/20/16 20:52 (Lanoxin) 0.125 mg DAILY@08 PO 08/16/16 08:00 08/20/16 10:28 (Ferrous Sulfate) 325 mg DAILY PO 08/16/16 09:00 08/20/16 10:28 (Lasix) 10 mg DAILY PO 08/16/16 09:00 08/20/16 10:27 (Prinivil) 5 mg DAILY PO 08/16/16 09:00 08/20/16 10:28 (Phenergan) 25 mg BID PRN PO 08/15/16 19:15 (NS Flush) 2 ml UNSCH PRN .XX 08/15/16 19:15 (NS Flush) 2 ml BID .XX 08/15/16 21:00 08/20/16 20:53 (Tylenol) 650 mg Q6H PRN PO 08/15/16 19:15 08/20/16 20:52 (Ativan Inj) 2 mg Q4H PRN IV 08/15/16 19:15 08/17/16 18:37 (Tears Naturale Opth Soln) 1 drop TID EACH EYE 08/16/16 09:00 08/20/16 13:00 (Zofran Inj) 4 mg Q6H PRN IV 08/15/16 19:15 (Reglan Inj) 5 mg Q6H PRN IV 08/15/16 19:15 (Heparin Inj) 5,000 units Q12H SQ 08/15/16 21:00 08/20/16 20:52 Miscellaneous Information 1 Q361D XX 08/15/16 19:15 (Chlorhexidine 2% Cloth) Taper DAILY@04 TOP 08/16/16 04:00 08/12/17 03:59 08/20/16 03:01 Chlorhexidine Gluconate 3 pack 3 pack UNSCH PRN TOP 08/15/16 19:15 (Diprivan 1000 Mg/100ml Inj) 100 ml @ 0 mls/hr TITRATE IV 5/3/17 19:15 08/17/16 12:19 (Pill Splitter) 1 ea UNSCH PRN OTHER 08/15/16 19:30 (Protonix) 20 mg DAILY PO 08/16/16 09:00 08/20/16 10:39 (Paxil) 20 mg DAILY PO 08/16/16 09:00 08/20/16 10:27 (Pravachol) 40 mg DAILY PO 08/16/16 09:00 08/20/16 10:27 Docusate Sodium 100 mg 100 mg BID PO 08/19/16 10:00 08/20/16 20:52 (Ancef 2 Gm Premix) 50 ml @ 100 mls/hr Q8H IV 08/21/16 01:00 08/21/16 17:29 08/21/16 01:03 (Zofran Inj) 4 mg Q4H PRN IV 08/20/16 18:00 Vital Signs / I&O Vital Signs Date Time Temp Pulse Resp B/P Pulse Ox O2 Delivery O2 Flow Rate FiO2 08/21/16 06:00 84 08/21/16 05:09 58 08/21/16 04:00 98.6 71 20 148/73 98 08/21/16 04:00 69 08/21/16 03:00 75 08/21/16 02:05 75 08/21/16 01:00 75 08/21/16 00:00 75 08/21/16 00:00 98.6 75 20 140/73 98 08/20/16 23:12 75 08/20/16 20:00 98.6 84 20 128/71 98 08/20/16 20:00 98 Room Air 08/20/16 20:00 84 08/20/16 18:34 98.4 77 18 132/58 98 08/20/16 18:28 77 08/20/16 14:00 72 08/20/16 12:00 98.2 82 23 147/71 98 08/20/16 12:00 82 08/20/16 10:00 77 08/20/16 08:00 98.1 85 21 146/82 98 08/20/16 08:00 85 I/O 08/20/16 08/20/16 08/20/16 08/21/16 08/21/16 08/21/16 07:00 15:00 23:00 07:00 15:00 23:00 Intake Total 350 ml 60 ml 530 ml Output Total 800 ml 450 ml 350 ml Balance -450 ml -390 ml 180 ml Intake Oral 350 ml 60 ml 480 ml IV Total 50 ml Output Urine Total 800 ml 450 ml 350 ml # Bowel Movements 0 Physical Exam GENERAL: Well-nourished, well-developed patient. SKIN: Warm and dry. HEAD: Normocephalic. EYES: No scleral icterus. No injection or drainage. NECK: Supple, trachea midline. No JVD or lymphadenopathy. CARDIOVASCULAR: Regular rate and rhythm without murmurs, gallops, or rubs. RESPIRATORY: Breath sounds equal bilaterally. No accessory muscle use. GASTROINTESTINAL: Abdomen soft, non-tender, nondistended. EXTREMITIES: No cyanosis, or edema. NEUROLOGICAL: Awake, alert, and oriented x 3. Non-focal. Imaging Last Impressions Chest X-Ray 08/20/16 0000 Signed Impressions: Service Date/Time: Saturday, August 20, 2016 18:12 - CONCLUSION: No pneumothorax Patrick Wheat MD Assessment and Plan Problem List: (1) AICD lead malfunction Assessment and Plan: Stable status post RV lead replacement. Chest x-ray shows no pneumothorax. Device function is appropriate. She is stable from an EP standpoint and can be discharged home at the discretion of the managing team per my discussion with Dr. Cordova. (2) CAD (coronary artery disease) Assessment and Plan: Stable since [address] Gu cardiac catheterization report. (3) Elevated troponin I level Assessment and Plan: Likely related to multiple AICD shocks. No acute ischemic lesions per left heart catheterization. Problem Qualifiers (1) AICD lead malfunction: Qualified Code: T82.110S - AICD lead malfunction, sequela (2) CAD (coronary artery disease): Qualified Code: I25.10 - Coronary artery disease involving [place] coronary artery of [place] heart without angina pectoris Rosangela Ham August 21, 2016 07:16
--- NOTE | 2016-08-21 08:50 | HHI.PR ---
Subjective Remarks resting comfortably with no distress. denies chest pain or sob. no new complaints. d/w the RN and no other acute issues over night. Objective Vitals Vital Signs Date Time Temp Pulse Resp B/P Pulse Ox O2 Delivery O2 Flow Rate FiO2 08/21/16 08:04 98.2 81 20 149/85 98 08/21/16 07:00 98 Room Air 08/21/16 06:00 84 08/21/16 05:09 58 08/21/16 04:00 98.6 71 20 148/73 98 08/21/16 04:00 69 08/21/16 03:00 75 08/21/16 02:05 75 08/21/16 01:00 75 08/21/16 00:00 75 08/21/16 00:00 98.6 75 20 140/73 98 08/20/16 23:12 75 08/20/16 20:00 98.6 84 20 128/71 98 08/20/16 20:00 98 Room Air 08/20/16 20:00 84 08/20/16 18:34 98.4 77 18 132/58 98 08/20/16 18:28 77 08/20/16 14:00 72 08/20/16 12:00 98.2 82 23 147/71 98 08/20/16 12:00 82 08/20/16 10:00 77 I/O 08/20/16 08/20/16 08/20/16 08/21/16 08/21/16 08/21/16 07:00 15:00 23:00 07:00 15:00 23:00 Intake Total 350 ml 60 ml 530 ml Output Total 800 ml 450 ml 350 ml Balance -450 ml -390 ml 180 ml Intake Oral 350 ml 60 ml 480 ml IV Total 50 ml Output Urine Total 800 ml 450 ml 350 ml # Bowel Movements 0 Result Diagram: 08/17/16 0518 08/17/16 0514 Imaging Last Impressions Chest X-Ray 08/20/16 0000 Signed Impressions: Service Date/Time: Saturday, August 20, 2016 18:12 - CONCLUSION: No pneumothorax Patrick Wheat MD Objective Remarks GENERAL: This is a well-nourished, well-developed patient, in no apparent distress. CARDIOVASCULAR: Regular rate and regular rhythm without murmurs, gallops, or rubs. RESPIRATORY: Clear to auscultation. Breath sounds equal bilaterally. No wheezes , rales, or rhonchi. GASTROINTESTINAL: Abdomen soft, non-tender, nondistended. Normal, active bowel sounds MUSCULOSKELETAL: Extremities without clubbing, cyanosis, or edema. NEURO: Alert & Oriented x4 to person, place, time, situation. Moves all ext x4 Procedures cardiac cath. AICD replacement Medications and IVs Current Medications Etomidate (Amidate Inj) 20 mg STK-MED ONCE .ROUTE ; Start 08/15/16 at 15:36; Stop 08/15/16 at 15:43; Status DC Succinylcholine Chloride 200 mg 200 mg STK-MED ONCE .ROUTE ; Start 08/15/16 at 15 :37; Stop 08/15/16 at 15:43; Status DC Propofol (Diprivan 500 Mg/ 50 ml Inj) 50 ml @ As Directed STK-MED ONCE .ROUTE Last administered on 08/15/16 17:28; Start 08/15/16 at 15:41; Stop 08/15/16 at 15: 44; Status DC Sodium Chloride 2 ml 2 ml UNSCH PRN IVF FLUSH AFTER USING IV ACCESS; Start 08/15 at 16:00; Stop 08/15/16 at 19:10; Status DC Sodium Chloride 500 ml @ 500 mls/hr ONCE ONCE IV Last administered on 17:29; Start 08/15/16 at 16:00; Stop 08/15/16 at 16:59; Status DC Propofol (Diprivan 1000 Mg/100ml Inj) 100 ml @ 0 mls/hr TITRATE IV Last administered on 08/15/16 17:31; Start 08/15/16 at 16:00; Stop 08/15/16 at 19:10; Status DC Etomidate (Amidate Inj) 20 mg ONCE ONCE IV PUSH Last administered on 08/15/16 17:29; Start 08/15/16 at 16:00; Stop 08/15/16 at 16:01; Status DC Succinylcholine Chloride (Quelicin Inj) 100 mg ONCE ONCE IV PUSH Last administered on 08/15/16 17:30; Start 08/15/16 at 16:00; Stop 08/15/16 at 16:01; Status DC Aspirin (Aspirin Supp) 300 mg ONCE ONCE RECTAL Last administered on 08/15/16 17:40; Start 08/15/16 at 17:30; Stop 08/15/16 at 17:31; Status DC Aspirin (Ecotrin Ec) 81 mg DAILY PO Last administered on 08/20/16 10:27; Start 08/16/16 at 09:00 Carvedilol (Coreg) 25 mg Q12HR PO Last administered on 08/20/16 20:52; Start at 21:00 Digoxin (Lanoxin) 0.125 mg DAILY@08 PO Last administered on 08/20/16 10:28; Start 08/16/16 at 08:00 Docusate Sodium (Colace) 100 mg BID PO ; Start 08/15/16 at 21:00; Stop 08/15/16 at 21:00; Status DC Ferrous Sulfate (Ferrous Sulfate) 325 mg DAILY PO Last administered on 10:28; Start 08/16/16 at 09:00 Furosemide (Lasix) 10 mg DAILY PO Last administered on 08/20/16 10:27; Start at 09:00 Lisinopril (Prinivil) 5 mg DAILY PO Last administered on 08/20/16 10:28; Start 08/16/16 at 09:00 Promethazine HCl (Phenergan) 25 mg BID PRN PO Nausea/Vomiting; Start 08/15/16 at 19:15 Non-Formulary Medication 20 mg DAILY PO ; Start 08/16/16 at 09:00; Status UNV Non-Formulary Medication 20 mg DAILY PO ; Start 08/16/16 at 09:00; Status UNV Non-Formulary Medication 20 mg DAILY PO CM; Start 08/16/16 at 09:00; Status UNV Sodium Chloride (NS Flush) 2 ml UNSCH PRN .XX FLUSH AFTER USING IV ACCESS; Start 08/15/16 at 19:15 Sodium Chloride (NS Flush) 2 ml BID .XX Last administered on 08/20/16 20:53; Start 08/15/16 at 21:00 Acetaminophen (Tylenol) 650 mg Q6H PRN PO PAIN 1-10 AND/OR FEVER >101F Last administered on 08/20/16 20:52; Start 08/15/16 at 19:15 Morphine Sulfate (Morphine Inj) 2 mg Q2H PRN IV PAIN SCALE 6 TO 10; Start at 19:15; Status UNV Lorazepam (Ativan Inj) 2 mg Q4H PRN IV Agitation/Sedation Last administered on 08/17/16 18:37; Start 08/15/16 at 19:15 Artificial Tears (Tears Naturale Opth Soln) 1 drop TID EACH EYE Last administered on 08/20/16 13:00; Start 08/16/16 at 09:00 Ondansetron HCl (Zofran Inj) 4 mg Q6H PRN IV NAUSEA OR VOMITING; Start 08/15/16 at 19:15 Metoclopramide HCl (Reglan Inj) 5 mg Q6H PRN IV NAUSEA OR VOMITING; Start at 19:15 Docusate Sodium (Colace Liq) 100 mg Q12H G-TUBE Last administered on 08/18/16 08:14; Start 08/15/16 at 21:00; Stop 08/19/16 at 09:14; Status DC Albuterol/ Ipratropium (Duoneb Neb) 1 ampule Q2HR NEB PRN INH WHEEZING; Start 08/15/16 at 19:15 Heparin Sodium (Porcine) (Heparin Inj) 5,000 units Q12H SQ Last administered on 08/20/16 20:52; Start 08/15/16 at 21:00 Miscellaneous Information 1 Q361D XX ; Start 08/15/16 at 19:15 Chlorhexidine Gluconate (Chlorhexidine 2% Cloth) Taper DAILY@04 TOP Last administered on 08/20/16 03:01; Start 08/16/16 at 04:00; Stop 08/12/17 at 03:59 Chlorhexidine Gluconate 3 pack 3 pack UNSCH PRN TOP HYGIENIC CARE; Start at 19:15 Propofol (Diprivan 1000 Mg/100ml Inj) 100 ml @ 0 mls/hr TITRATE IV Last administered on 08/17/16 12:19; Start 08/15/16 at 19:15 Miscellaneous (Pill Splitter) 1 ea UNSCH PRN OTHER SEE LABEL COMMENTS; Start at 19:30 Pantoprazole Sodium (Protonix) 20 mg DAILY PO Last administered on 08/20/16 10: 39; Start 08/16/16 at 09:00 Paroxetine HCl (Paxil) 20 mg DAILY PO Last administered on 08/20/16 10:27; Start 08/16/16 at 09:00 Pravastatin Sodium 40 mg 40 mg DAILY PO Last administered on 08/20/16 10:27; Start 08/16/16 at 09:00 Heparin Sodium/ Sodium Chloride (Heparin-NS/Pf Inj) 500 ml @ As Directed STK- MED ONCE .ROUTE ; Start 08/17/16 at 10:38; Stop 08/17/16 at 10:39; Status DC Iohexol (OMNIPAQUE 350 INJ (Ground Water Contractor)) 100 ml STK-MED ONCE OTHER ; Start at 11:30; Stop 08/17/16 at 12:27; Status DC Docusate Sodium (Colace) 100 mg BID PO Last administered on 08/20/16 20:52; Start 08/19/16 at 10:00 Povidone Iodine (Betadine 5% Antisepsis Kit) 1 applic ELECTRIC MOTOR ANALYST EACH NARE ; Start 08/19/16 at 14:00; Stop 08/23/16 at 13:59 Mupirocin (Bactroban Nasal 2% Oint) 1 applic ELECTRIC MOTOR ANALYST NASAL ; Start 08/19/16 at 14:00; Stop 08/23/16 at 13:59 Chlorhexidine Gluconate (Chlorhexidine 2% Cloth) 3 pack ELECTRIC MOTOR ANALYST TOP ; Start 08/19/16 at 14:00; Stop 08/23/16 at 13:59 Vancomycin HCl (Vancomycin Inj) 500 mg STK-MED ONCE .ROUTE Last administered on 08/20/16 16:42; Start 08/20/16 at 16:42; Stop 08/20/16 at 16:43; Status DC Lidocaine HCl (Xylocaine 2% Inj) 50 ml STK-MED ONCE .ROUTE Last administered on 08/20/16 16:42; Start 08/20/16 at 16:42; Stop 08/20/16 at 16:43; Status DC Vancomycin HCl (Vancomycin Inj) 1,000 mg STK-MED ONCE .ROUTE Last administered on 08/20/16 16:50; Start 08/20/16 at 16:42; Stop 08/20/16 at 16:43; Status DC Cefazolin Sodium 2000 mg 2,000 mg STK-MED ONCE .ROUTE Last administered on 16:50; Start 08/20/16 at 16:42; Stop 08/20/16 at 16:43; Status DC Sodium Chloride 250 ml @ As Directed STK-MED ONCE .ROUTE Last administered on 08/20/16 16:50; Start 08/20/16 at 16:42; Stop 08/20/16 at 16:43; Status DC Cefazolin Sodium/ Dextrose (Ancef 2 Gm Premix) 50 ml @ 100 mls/hr Q8H IV Last administered on 08/21/16 01:03; Start 08/21/16 at 01:00; Stop 08/21/16 at 17:29 Ondansetron HCl (Zofran Inj) 4 mg Q4H PRN IV NAUSEA; Start 08/20/16 at 18:00 Acetaminophen/ Codeine Phosphate (Tylenol-Codeine #3) 1 tab Q4H PRN PO PAIN SCALE 1 TO 5; Start 08/20/16 at 18:00; Stop 08/20/16 at 18:16; Status DC Acetaminophen/ Codeine Phosphate (Tylenol-Codeine #3) 2 tab Q4H PRN PO PAIN SCALE 6 TO 10; Start 08/20/16 at 18:00; Stop 08/20/16 at 18:16; Status DC Midazolam HCl (Versed Inj) 2 mg STK-MED ONCE .ROUTE ; Start 08/20/16 at 18:02; Stop 08/20/16 at 18:03; Status DC Fentanyl Citrate (fentaNYL INJ) 100 mcg STK-MED ONCE .ROUTE ; Start 08/20/16 at 18:02; Stop 08/20/16 at 18:03; Status DC A/P Assessment and Plan A/p Respiratory failure-resolved - Intubated for an airway protection - Extubated 08/17, tolerating well AICD malfunction - Interrogated. ICD deactivated per Dr. Nettles note - s/p AICD replacement by Dr. Cordova Elevated Troponin: - Cardiology Dr. Nettles. Troponin elevation most likely secondary to AICD firing multiple times -s/p cardiac cath with no significant change compared to 2007 - EP Dr. Cordova - Continue ASA and beta blockers, Lasix Atrial fibrillation - continue BB Coronary artery disease with 3 stents - No acute event - FREDY of EKGs and cardiac enzymes Congestive heart failure/cardiomyopathy - No exacerbation - FARA inhibitor and diuretics -resumed BB Hypertension - FARA inhibitor - Diuretics - Carvedilol DVT GI prophylaxis - Teds SCDs Discharge Planning dc home today. see med list. f/u with pcp and cardiology. d/w the patient and RN. time spent 35 min. Franki Omalley MD August 21, 2016 08:50
--- NOTE | 2016-08-21 08:56 | HHI.DS ---
Discharge Summary Admission Date August 15, 2016 at 17:53 Discharge Date: August 21, 2016 Admitting Diagnosis AICD malfunction, possible cardiac pulmonary arrest (1) AICD lead malfunction ICD Code: T82.110A Diagnosis: Principal (2) Ischemic cardiomyopathy ICD Code: I25.5 Diagnosis: Principal (3) Elevated troponin I level ICD Code: R74.8 Diagnosis: Principal (4) Systolic CHF ICD Code: I50.20 Diagnosis: Principal (5) CAD (coronary artery disease) ICD Code: I25.10 Diagnosis: Principal (6) Paroxysmal atrial fibrillation ICD Code: I48.0 Diagnosis: Principal Procedures cardiac cath. AICD replacement Brief History - From Admission 76-year-old female presents to emergency department via EMS after her AICD fired 72 times prior to EMS arrival. EMS states when they arrived the patient noted her AICD had fired several times. EMS states they placed the patient on cardiac telemetry monitoring, the patient had a sinus rhythm that varied between 60 and 100, with no obvious arrhythmias, however, they do note her AICD fired several times. EMS administered 2 mg of Ativan on scene, they then called medical control and spoke with Dr. Boyle, who stated the patient did have 2 more milligrams of Ativan intravenously for her discomfort secondary to the AICD firing. Upon arrival nursing staff stated that the patient was awake and alert, however, after they transferred her from the stretcher to the bed, the patient went apneic, stopped talking, and felt to be pulseless. CPR was initiated by nursing staff however when the ER attending examined the patient she had a p palpable pulse. Intubated for airway protection as well as comfort due to malfunctioning AICD. CBC/BMP: 08/17/16 0518 08/17/16 0514 Imaging Last Impressions Chest X-Ray 08/20/16 0000 Signed Impressions: Service Date/Time: Saturday, August 20, 2016 18:12 - CONCLUSION: No pneumothorax Patrick Wheat MD PE at Discharge GENERAL: This is a well-nourished, well-developed patient, in no apparent distress. CARDIOVASCULAR: Regular rate and regular rhythm without murmurs, gallops, or rubs. RESPIRATORY: Clear to auscultation. Breath sounds equal bilaterally. No wheezes , rales, or rhonchi. GASTROINTESTINAL: Abdomen soft, non-tender, nondistended. Normal, active bowel sounds MUSCULOSKELETAL: Extremities without clubbing, cyanosis, or edema. NEURO: Alert & Oriented x4 to person, place, time, situation. Moves all ext x4 Transfer Summary 76-year-old female presents to emergency department via EMS after her AICD fired 72 times prior to EMS arrival. EMS states when they arrived the patient noted her AICD had fired several times. EMS states they placed the patient on cardiac telemetry monitoring, the patient had a sinus rhythm that varied between 60 and 100, with no obvious arrhythmias, however, they do note her AICD fired several times. EMS administered 2 mg of Ativan on scene, they then called medical control and spoke with Dr. Boyle, who stated the patient did have 2 more milligrams of Ativan intravenously for her discomfort secondary to the AICD firing. Upon arrival nursing staff stated that the patient was awake and alert, however, after they transferred her from the stretcher to the bed, the patient went apneic, stopped talking, and felt to be pulseless. CPR was initiated by nursing staff however when the ER attending examined the patient she had a palpable pulse. Intubated for airway protection as well as comfort due to malfunctioning AICD. SUBJ 08/16: Note from Dr. Nettles indicates ICD had been deactivated. Consult from Dr. Cordova, EP is pending. Sedated with propofol. Troponin elevated to 7.2. Dr. Nettles aware. Most likely from recurrent AICD firing 08/17: Plan is for veterinary laboratory diagnostician today to define coronary anatomy, +/- lead reposition. 08/18: Cardiac cath -> medical therapy only. EP service to adjust ICD saturday. Extubated last night, breathing comfortably. 08/19: Breathing comfortably, stable hemodynamics. To EP lab saturday. 08/20: Resting comfortably on bed. Plan for EP lab today for new AICD/lead placement. Probable CIC transfer afterwards Hospital Course Respiratory failure-resolved - Intubated for an airway protection - Extubated 08/17, tolerating well AICD malfunction - Interrogated. ICD deactivated per Dr. Nettles note - s/p AICD replacement by Dr. Cordova Elevated Troponin: - Cardiology Dr. Nettles. Troponin elevation most likely secondary to AICD firing multiple times -s/p cardiac cath with no significant change compared to 2008 - EP Dr. Cordova - Continue ASA and beta blockers, Lasix Atrial fibrillation - continue BB Coronary artery disease with 3 stents - No acute event - FREDY of EKGs and cardiac enzymes Congestive heart failure/cardiomyopathy - No exacerbation - FARA inhibitor and diuretics -resumed BB Hypertension - FARA inhibitor - Diuretics - Carvedilol DVT GI prophylaxis - Teds SCDs Pt Condition on Discharge: Good Discharge Disposition: Discharge Home Discharge Time: > 30 minutes Discharge Instructions DIET: Follow Instructions for: Heart Healthy Diet Activities you can perform: Regular-No Restrictions Follow up Referrals: Cardiology PCP Follow-up Continued Medications: Aspirin (Aspirin) 81 Mg Tabdr 81 MG PO DAILY TAB Carvedilol (Coreg) 12.5 Mg Tab 25 MG PO Q12HR Blood Pressure Management #60 TAB Digoxin (Digoxin) 0.125 Mg Tab 0.125 MG PO DAILY@08 afib #30 TAB Docusate Sodium (Colace) 100 Mg Cap 100 MG PO BID Constipation #60 Ref 0 CAP Ferrous Sulfate (Ferrous Sulfate) 325 Mg Tab 325 MG PO DAILY Nutritional Supplement #30 Ref 0 TAB Furosemide (Furosemide) 20 Mg Tab 10 MG PO DAILY #60 Ref 0 TAB Lisinopril (Lisinopril) 5 Mg Tab 5 MG PO DAILY Blood Pressure Management #30 Ref 0 TAB Omeprazole (Prilosec) 20 Mg Cap 20 MG PO DAILY #30 Ref 0 CAP Paroxetine (Paxil) 10 Mg Tab 20 MG PO DAILY #30 Ref 0 TAB Potassium Chloride ER (Potassium Chloride ER) 10 Meq Cap 10 MEQ PO BID Electrolyte Replacement #60 Ref 0 CAP Promethazine (Phenergan) 25 Mg Tab 25 MG PO BID PRN Nausea/Vomiting #10 Ref 0 TAB Rivaroxaban (Xarelto) 20 Mg Tab 20 MG PO DAILY Blood Clot Prevention Ref 0 TAB Simvastatin (Zocor) 20 Mg Tab 20 MG PO DAILY Cholesterol Management #30 Ref 0 TAB Franki Omalley MD August 21, 2016 08:56
--- NOTE | 2016-08-21 08:56 | HHI.DCPOC ---
Discharge Care Plan Diagnosis: (1) Elevated troponin I level (2) AICD lead malfunction Your Health Problems Are: Chest Pain Goals to Promote Your Health * To prevent worsening of your condition and complications * To maintain your health at the optimal level Directions to Meet Your Goals Take your medications as prescribed Follow your dietary instruction Follow activity as directed Keep your appointments as scheduled Take your immunizations and boosters as scheduled If your symptoms worsen call your PCP, if no PCP go to Urgent Care Center or Emergency Room Smoking is Dangerous to Your Health. Avoid second hand smoke Call the 24-hour hour crisis hotline for domestic abuse at Franki Omalley MD August 21, 2016 08:56
[2016-08-21] MEDS: LISINOPRIL 5 MG TAB PO SCH (09:32)
[2016-08-21] MEDS: SODIUM CHLORIDE 0.9% FLUSH 10 ML FLUSH SCH (09:32)
[2016-08-21] MEDS: PARoxetine HCL 20 MG TAB PO SCH (09:33)
[2016-08-21] MEDS: PANTOPRAZOLE SOD 20 MG DELAYED RELEASE TAB PO SCH (09:33)
[2016-08-21] MEDS: CARVEDILOL 12.5 MG TAB PO SCH (09:33)
[2016-08-21] MEDS: FUROSEMIDE 20 MG TAB PO SCH (09:33)
[2016-08-21] MEDS: DOCUSATE SODIUM 100 MG CAP PO SCH (09:33)
[2016-08-21] MEDS: HEPARIN SODIUM - SQ 10,000 UNITS/ML VIAL SQ SCH (09:33)
[2016-08-21] MEDS: PRAVASTATIN SOD 40 MG TAB PO SCH (09:33)
[2016-08-21] MEDS: DIGOXIN 0.125 MG TAB PO SCH (09:33)
[2016-08-21] MEDS: ARTIFICIAL TEARS OPTH SOLN 15 ML BTL EACH EYE SCH (09:34)
[2016-08-21] MEDS: ASPIRIN EC 81 MG TABEC PO SCH (09:34)
[2016-08-21] MEDS: FERROUS SULFATE 325 MG (65 MG ELEMENTAL IRON) TAB PO SCH (09:34)
--- NOTE | 2016-08-21 15:52 | EKG ---
Date Performed: 08/21/2016 Time Performed: 05:25:20 PTAGE: 76 years EKG: Atrial fibrillation with frequent multifocal PVCs Right axis deviation Right bundle branch block Inferior/lateral ST-T changes may be due to myocardial ischemia Low QRS voltages in precordial leads Compared to prior tracing no significant change Abnormal ECG PREVIOUS TRACING : 08/15/2016 15.47 DOCTOR: Carisa Smith Interpretating Date/Time 08/21/2016 15:48:06
--- NOTE | 2016-08-22 08:36 | MP ---
cc: CRISTOBAL BENTON M.D., HANSCY M.D. DATE OF SURGERY 08/20/2016 PROCEDURES 1. Defibrillator removal. 2. New defibrillator insertion. 3. New right ventricular defibrillatory lead insertion. INDICATIONS FOR PROCEDURE Ms. Lepe is a 76-year-old female with a history of known ischemic coronary artery disease, congestive heart failure, cardiomyopathy, previous defibrillator implanted in 2008, recently admitted due to recurrent defibrillatory shock. The patient had 72 shocks. There was lead noise in the lead. Lead fracture seen on x-ray. Troponin was elevated. Left heart catheterization indicated no occlusive disease and ejection fraction of around 15-20%. Decision for new lead placement was taken. The device is basically depleted. The completely wanted the generator back and a new defibrillator generator was implanted. The risks, the nature and the benefits of the procedure are clearly stated to her. The risks include pneumothorax, cardiac perforation, stroke and even . She understood and agreed to proceed. This is not an acute myocardial infarction. This increased troponin is in the presence of more than 70 defibrillatory shocks. The patient is on optimal medical treatment for years. PROCEDURE After written informed consent was obtained, the patient was brought to the EP lab where he she was prepped and draped in the usual sterile fashion. Conscious sedation was initiated and maintained throughout the procedure by the anesthesiologist. Once sedation was verified, the left infraclavicular area over the existing generator was anesthetized with 2% Xylocaine. Using a #11 scalpel, a 3-cm incision was made over the existing generator. This incision was then taken down to the deep fascial layer using Bovie cautery and blunt dissection. Once exposed, the generator was removed from the pocket. Scar tissue was removed from around the pocket. The pocket was expanded; pocket revision was performed. Then, using modified Seldinger technique and simultaneous contrast injection via the left antecubital vein, the left subclavian vein was cannulated on one occasion, a guidewire was advanced. The guidewire was unable to cross the distal portion of the subclavian. There was significant occlusion. Over the wire I did advance a 5-Egyptian dilator. Through the dilator Glidewire was advanced. After multiple manipulations I was able to cross the lesion. At this point I progressively dilated the area. Then, over the wire, I did advance a short 7-Egyptian dilator and introducer. As the dilator and wire were removed, I did attempt to advance the lead but I was not able to cross the area. At that point I decided to advance the Hewitt through the sheath again and exchanged the short 7 for a long 7. The long 7 was advanced all the way to the right atrium. Then the lead was advanced and placed at the right ventricular septal area. After adequate pacing and sensing thresholds obtained, the peel-away introducer was removed and the lead was secured in the pocket with #2 Ethibond suture. At that point the pocket was copiously irrigated with antibiotic solution. Because of the patient's general condition and the previously recurrent defibrillatory shocks, I decided not to proceed with device testing. The existing lead was unscrewed and the hyoke was cut and the lead was capped and left into the pocket. The new lead was connected to the generator, placed into the pocket. I did proceed with wound closure. The deep fascial layer was approximated using #2-0 Vicryl suture in a continuous fashion. The subcutaneous layer was approximated with #2-0 Vicryl suture in a continuous fashion. The subcuticular layer was approximated using #2-0 Vicryl suture in a continuous fashion. Dermabond adhesive was applied to the wound, followed by a sterile pressure dressing. There was no complication. The patient tolerated the procedure. Blood loss minimal. 1. EXPLANTED HARDWARE: The explanted defibrillator generator is a [employer] model number [id number], serial number [id number]. The capped lead is a [employer] model 1571-65, serial number [id number]. 2. IMPLANTED HARDWARE: The implanted defibrillator generator is a [employer], model number [id number], serial number [id number]. The right ventricular pacing/sensing/defibrillatory lead is a [employer] model #7122Q-58, serial number [id number]. 3. THRESHOLDS: The right ventricle pacing threshold in the bipolar mode 0.75 volts at 0.5 milliseconds. Lead impedance 760 ohms, R-wave at 11.8 mV. 4. SETTINGS: The device in VVI 40, defibrillatory portion for two zones, one zone for ventricular tachycardia between 160-240 beats per minute. Initial therapy consisted of one burst of ATP, one ramp, 81%, 10 pulse, 70-second incremental, followed by 20, then 30, and all subsequent shocks at 40 defibrillatory shock. Second zone set for ventricular fibrillation above 240 beats per minute, first therapy at 30 and all subsequent shocks at 40 defibrillatory shock. CONCLUSIONS Successful defibrillator removal, new defibrillator insertion. New defibrillatory lead implantation. COMMENT AND RECOMMENDATION The patient is going to be transferred to the recovery room. He will be observed and if stable in the morning can be discharged home. Angel Cordova MD HS/SSB /5:47 PM /8:07 AM
== END 2016-08-21 13:02 | disposition home or self-care (01) | DRG 224 ==
LOC: NEPE 15:32 → NEDA 17:53 → N03B 21:53 → HCIS 08-20 17:36
PROVIDERS: ADMIT Internal Medicine; ATTEND Internal Medicine
PROC: B2111ZZ Fluoroscopy of Multiple Coronary Arteries using Low Osmolar Contrast (ICD-10-PCS; 2016-08-17)
PROC: 4A023N7 Measurement of Cardiac Sampling and Pressure, Left Heart, Percutaneous Approach (ICD-10-PCS; principal; 2016-08-17 12:15)
PROC: 02HK3KZ Insertion of Defibrillator Lead into Right Ventricle, Percutaneous Approach (ICD-10-PCS; 2016-08-20)
PROC: 0JH608Z Insertion of Defibrillator Generator into Chest Subcutaneous Tissue and Fascia, Open Approach (ICD-10-PCS; 2016-08-20)
PROC: 02PA3MZ Removal of Cardiac Lead from Heart, Percutaneous Approach (ICD-10-PCS; 2016-08-20)
PROC: 0JPT0PZ Removal of Cardiac Rhythm Related Device from Trunk Subcutaneous Tissue and Fascia, Open Approach (ICD-10-PCS; 2016-08-20)
DX: T82.110A Breakdown (mechanical) of cardiac electrode, initial encounter (principal); J96.90 Respiratory failure, unspecified, unspecified whether with hypoxia or hypercapnia; I50.20 Unspecified systolic (congestive) heart failure; I11.0 Hypertensive heart disease with heart failure; I42.0 Dilated cardiomyopathy; D64.9 Anemia, unspecified; Y92.9 Unspecified place or not applicable; Y71.2 Prosthetic and other implants, materials and accessory cardiovascular devices associated with adverse incidents; E78.5 Hyperlipidemia, unspecified; I25.10 Atherosclerotic heart disease of native coronary artery without angina pectoris; I25.5 Ischemic cardiomyopathy; I48.0 Paroxysmal atrial fibrillation; K21.9 Gastro-esophageal reflux disease without esophagitis; Z79.01 Long term (current) use of anticoagulants; Z79.82 Long term (current) use of aspirin; Z87.891 Personal history of nicotine dependence
CPT/HCPCS: 31500; 33249; 36600; 71010; 80053; 80162; 82550; 82552; 82805; 82948; 83735; 83880; 84100; 84484; 85025; 85610; 85730; 87641; 93005; 93454; 94002; 94003; 96365; C1722; C1769; C1777; C1893; J0330; J0690; J1644; J2060; J2250; J3010; J3370; J7040; J7050; Q9967

== ENCOUNTER 2017-07-30 21:38 | Inpatient (IN) | payer OTHER, MEDICARE ==
[~2017-07-30] VITALS: Ht 170.2 cm; Wt 56.8 kg
[~2017-07-30 21:38] MED LIST changes: +ASPI1TAB69 PO; -BEDSIDE COMMODE1 MI1; -PAXI10TA2 PO; +PAXI10TA8 PO; -WALKER WHEELS/F1 MIS; +XARE20TA PO
[2017-07-30 21:54] VITALS: BP 142/63; PULSE 75; RESP 18; TEMP 97.8; O2SAT 100
--- NOTE | 2017-07-30 22:20 | RADRPT ---
EXAM DATE/TIME: 07/30/2017 22:08 [facility] COMPARISON: No previous studies available for comparison. INDICATIONS : Chest pain, shortness of breath. MEDICAL HISTORY : Hypertension. SURGICAL HISTORY : Pacemaker. Cholecystectomy. ENCOUNTER: Initial ACUITY: 1 day PAIN SCORE: 2/10 LOCATION: Bilateral chest FINDINGS: PA and lateral views of the chest demonstrate the lungs to be symmetrically aerated without evidence of mass, infiltrate or effusion. The cardiomediastinal contours are unremarkable. Cardiomegaly and l eft sided pacemaker with 2 intact leads. Osseous structures are intact. CONCLUSION: No acute disease. Dimitry Katz MD on July 30, 2017 at 22:17 Board Certified Radiologist. This report was verified electronically.
--- NOTE | 2017-07-30 22:30 | PD ---
HPI Chief Complaint: Chest Pain Time Seen by Provider: 22:28 Travel History International Travel<30 days: No Contact w/Intl Traveler<30days: No Traveled to known affect area: No History of Present Illness HPI The patient is a 77 year old female who presents to the [facility] emergency department with a history of having intermittent cramping sensations in the left side of her chest that began yesterday and occurred twice. Today, it began again in the morning and has increased in frequency this evening. She reports that it feels like it is associated with her pacemaker. She reports that in August 2016 she had a cardiopulmonary arrest after her pacemaker malfunctioned and repeatedly fired 72 times. The Patient's appeals referee is . The patient had her pacemaker replaced on August 20, 2016. The patient has a history of coronary artery disease with 3 prior stents being placed, atrial fibrillation, chronically anticoagulated on Eliquis. The patient reports that she has had increased shortness of breath over the last 24 hours. She reports that yesterday she also became concerned that her urine output was decreased in spite of her diuretic. She reports that the urine output and Richardson improved again today. She denies having any weight gain or increased lower extremity edema. She reports that a few weeks ago she did have an upper respiratory infection or allergy symptoms with a cough, however she reports that this has improved. She denies having any known recent fevers. She denies having any diaphoresis, nausea or vomiting. She denies having any sensation of palpitations. She denies her pacemaker firing today. On review of systems otherwise, she denies having any abdominal pain, diarrhea, dysuria, urinary frequency, urinary urgency, or neurologic symptoms. [facility] Past Medical History Narrative Medical The patient's past medical history is significant for atrial fibrillation anticoagulated on Eliquis, coronary artery disease with 3 prior stents being placed, congestive heart failure, hypertension, dyslipidemia, history of thyroid nodules, osteoarthritis. Hx Anticoagulant Therapy: Yes (Eliquis) Arthritis: Yes (bilateral knees) Asthma: No Atrial Fibrillation: Yes Autoimmune Disease: No Blood Disorders: No Anxiety: No Depression: Yes Heart Rhythm Problems: Yes (V-TACH, afib) Cancer: No Cardiomyopathy: Yes Cardiovascular Problems: Yes (pacemaker insitu) High Cholesterol: No Chest Pain: No Congestive Heart Failure: Yes COPD: No Cerebrovascular Accident: No Coronary Artery Disease: Yes Diabetes: No Diminished Hearing: No Endocrine: Yes Gastrointestinal Disorders: Yes GERD: Yes Glaucoma: No Genitourinary: No Headaches: No Hepatitis: No Hiatal Hernia: Yes Hypertension: Yes Immune Disorder: No Implanted Vascular Access Dvce: Yes Kidney Stones: No Musculoskeletal: Yes Neurologic: No Psychiatric: Yes Reproductive: No Respiratory: Yes Migraines: No Myocardial Infarction: No Renal Failure: No Seizures: No Sickle Cell Disease: No Sleep Apnea: No Thyroid Disease: Yes (enlarged thyroid with nodules) Past Surgical History Narrative Surgical The patient's past surgical history is significant for pacemaker and AICD placement, cardiac catheterization with 3 prior stents being placed, cholecystectomy, hysterectomy, appendectomy. AICD: Yes Appendectomy: Yes Arteriovenous Shunt: No Cardiac Surgery: No (pacemaker, defib; st judes) Cholecystectomy: Yes Ear Surgery: No Endocrine Surgery: No Eye Surgery: No Genitourinary Surgery: No Gynecologic Surgery: Yes (hysterectomy) Hysterectomy: Yes Insulin Pump: No Joint Replacement: No Oral Surgery: No Pacemaker: Yes Thoracic Surgery: Yes (GALL BLADDER) Other Surgery: Yes Social History Alcohol Use: No Tobacco Use: No Substance Use: No Allergies-Medications (Allergen,Severity, Reaction): Coded Allergies: codeine (Unverified Allergy, Severe, BLINDNESS, PALPITATIONS, DIAPHORESIS , 07/30/17) Reported Meds & Prescriptions Reported Meds & Active Scripts Active Digoxin 0.125 Mg Tab 0.125 Mg PO DAILY@08 Coreg (Carvedilol) 12.5 Mg Tab 25 Mg PO Q12HR Reported B Complex (B-Complex Vitamins) 1 Cap 1 Cap PO DAILY B12 (Cyanocobalamin) 1,000 Mcg Tab Centrum Silver (Multiple Vitamins W/ Minerals) 400 Mcg-250 Mcg Chw Vitamin E 100 Unit Tab 100 Units PO DAILY Aspirin Low Dose (Aspirin) 81 Mg Chew 81 Mg CHEW DAILY Paxil (Paroxetine HCl) 30 Mg Tab 30 Mg PO DAILY Paxil (Paroxetine HCl) 30 Mg Tab 20 Mg PO DAILY Eliquis (Apixaban) 2.5 Mg Tab 5 Mg PO BID Furosemide 20 Mg Tab 20 Mg PO BID Zocor (Simvastatin) 20 Mg Tab 20 Mg PO DAILY Potassium Chloride ER (Potassium Chloride) 10 Meq Cap 10 Meq PO BID Lisinopril 5 Mg Tab 5 Mg PO DAILY Review of Systems Except as stated in HPI: all other systems reviewed are Neg General / Constitutional: No: Fever Eyes: No: Visual changes HENT: No: Headaches, Congestion Cardiovascular: Positive: Chest Pain or Discomfort, Dyspnea on exertion Respiratory: Positive: Cough, Shortness of Breath Gastrointestinal: No: Nausea, Vomiting, Diarrhea, Abdominal Pain Genitourinary: No: Dysuria Musculoskeletal: No: Pain Skin: No Rash Neurologic: Positive: Weakness (Generalized weakness), No: Focal Abnormalities , Change in Mentation, Slurred Speech, Sensory Disturbance Psychiatric: No: Depression Endocrine: No: Polydipsia Hematologic/Lymphatic: No: Easy Bruising Physical Exam Narrative General: The patient is a well-developed well-nourished female in no acute distress. Head and Neck exam: Head is normocephalic atraumatic. Eyes: EOMI, pupils are equal round and reactive to light. Nose: Midline septum with pink mucous membranes Mouth: Dentition unremarkable. Moist mucus membranes. Posterior oropharynx is not erythematous. No tonsillar hypertrophy. Uvula midline. Airway patent. Neck: No palpable lymphadenopathy. No nuchal rigidity. No thyromegaly. Cardiovascular: Irregularly irregular with rate control without murmurs, gallops, or rubs. No chest wall tenderness on palpation. The patient has a palpable pacemaker/AICD in place on the left upper chest. There is no surrounding erythema, ecchymosis , or swelling noted Lungs: Clear to auscultation bilaterally. No wheezes, rhonchi, or rales. Abdomen: Soft, without tenderness to palpation in all 4 quadrants of the abdomen. No guarding, rebound, or rigidity. Normal bowel sounds are audible. No tenderness on palpation of McBurney's point. Negative Ferraro sign Extremities: No clubbing, cyanosis, or edema. 2+ pulses in all 4 extremities. No calf tenderness on palpation. Back: No spinous process tenderness to palpation. No costovertebral angle tenderness to palpation. Neurologic Exam: Grossly nonfocal. Skin Exam: No rash noted. Intact skin that is warm and dry. Data Data Last Documented VS Vital Signs Date Time Temp Pulse Resp B/P (MAP) Pulse Ox O2 Delivery O2 Flow Rate FiO2 07/30/17 23:50 71 16 154/77 (102) 99 Room Air 07/30/17 21:54 97.8 Orders Orders Electrocardiogram (07/30/17 21:57) Basic Metabolic Panel (Bmp) (07/30/17 21:57) Ckmb (Isoenzyme) Profile (07/30/17 21:57) Complete Blood Count With Diff (07/30/17 21:57) Magnesium (Mg) (07/30/17 21:57) Prothrombin Time / Inr (Pt) (07/30/17 21:57) Act Partial Throm Time (Ptt) (07/30/17 21:57) Troponin I (07/30/17 21:57) Chest, Pa & Lat (07/30/17 21:57) B-Type Natriuretic Peptide (07/30/17 22:43) Aspirin Chew (Aspirin Chew) (07/30/17 23:00) Nitroglycerin Sl (Nitrostat Sl) (07/30/17 23:00) Nitroglycerin 2% Oint (Nitroglycerin 2% (07/30/17 23:00) Digoxin (07/30/17 22:40) Hepatic Functional Panel (07/30/17 22:40) Admit Order (Ed Use Only) (07/31/17 00:22) Labs Laboratory Tests Test 07/30/17 22:40 White Blood Count 5.9 TH/MM3 Red Blood Count 3.82 MIL/MM3 Hemoglobin 10.9 GM/DL Hematocrit 32.5 % Mean Corpuscular Volume 84.9 FL Mean Corpuscular Hemoglobin 28.4 PG Mean Corpuscular Hemoglobin Concent 33.5 % Red Cell Distribution Width 14.8 % Platelet Count 170 TH/MM3 Mean Platelet Volume 7.9 FL Neutrophils (%) (Auto) 62.2 % Lymphocytes (%) (Auto) 19.6 % Monocytes (%) (Auto) 13.1 % Eosinophils (%) (Auto) 4.2 % Basophils (%) (Auto) 0.9 % Neutrophils # (Auto) 3.7 TH/MM3 Lymphocytes # (Auto) 1.2 TH/MM3 Monocytes # (Auto) 0.8 TH/MM3 Eosinophils # (Auto) 0.2 TH/MM3 Basophils # (Auto) 0.1 TH/MM3 CBC Comment DIFF FINAL Differential Comment Prothrombin Time 11.8 SEC Prothromb Time International Ratio 1.2 RATIO Activated Partial Thromboplast Time 29.4 SEC Blood Urea Nitrogen 20 MG/DL Creatinine 1.10 MG/DL Random Glucose 94 MG/DL Total Protein 7.7 GM/DL Albumin 3.8 GM/DL Calcium Level 8.8 MG/DL Magnesium Level 2.3 MG/DL Alkaline Phosphatase 104 U/L Aspartate Amino Transf (AST/SGOT) 26 U/L Alanine Aminotransferase (ALT/SGPT) 19 U/L Total Bilirubin 0.5 MG/DL Direct Bilirubin 0.1 MG/DL Sodium Level 134 MEQ/L Potassium Level 4.4 MEQ/L Chloride Level 99 MEQ/L Carbon Dioxide Level 30.5 MEQ/L Anion Gap 5 MEQ/L Estimat Glomerular Filtration Rate 48 ML/MIN Indirect Bilirubin 0.4 MG/DL Total Creatine Kinase 64 U/L Troponin I 0.10 NG/ML B-Type Natriuretic Peptide 383 PG/ML Digoxin Level 1.0 NG/ML MDM Medical Decision Making Medical Screen Exam Complete: Yes Emergency Medical Condition: Yes Medical Record Reviewed: Yes Interpretation(s) Last Impressions Chest X-Ray 07/30/172156 Signed Impressions: Service Date/Time: Sunday, July 30, 2017 22:08 - CONCLUSION: No acute disease. Dimitry Katz MD Differential Diagnosis Acute coronary syndrome, versus congestive heart failure exacerbation, versus pacemaker malfunction Narrative Course During the course of the patient's emergency department visit, the patient's history, examination, and differential diagnosis were reviewed with the patient. The patient was placed on a cardiac rehabilitation program director with oximetry and frequent blood pressure monitoring. The patient had IV access obtained and blood work sent for analysis. The patient had an EKG done on arrival that shows a heart rate of 80 in atrial fibrillation, QRS duration 153 ms, QTC 409 ms with a left bundle branch block, no other acute abnormality. The pacemaker outside sales account representative for [facility] was called to interrogate the patient's pacemaker. I spoke to Adam. He reviewed the patient's record after talking to me on the phone and called back at approximately 11:05 PM to explain that the patient automatically has her pacemaker interrogated every 3 months from home when she plugs into a device at home. He reports that her pacemaker was last interrogated on July, 5 days ago. He reported that the pacemaker appeared to be functioning normally and she was only requiring pacing less than 1% of the time. The patient reports to me that she does have an appointment with her appeals referee scheduled for the morning, at Dr. Benjamin's office and there was no report of the patient's AICD firing, the interrogation was canceled emergently. The pacemaker outside sales account representative reported that the pacemaker would be able to be interrogated at the appeals referee's office in the morning if he felt it was necessary. The patient was initially provided aspirin 81 mg p.o. 1. Sublingual nitroglycerin 1 was administered. The patient was given nitroglycerin 1 inch the chest wall. The patient's laboratory studies were reviewed and remarkable for a white count of 5.9, hemoglobin 10.9, platelets 170 with 13.1-monocytes, CMP is remarkable for a sodium of 134, BUN 20, creatinine 1.10, CPK 64, troponin I is elevated at 0.10. BNP is 383. PT 11.8, PTT 29.4, digoxin level is 1.0 Radiology studies were reviewed and remarkable for a chest x-ray that shows no evidence of acute cardiopulmonary disease. The patient will be admitted to the hospital for an elevated troponin with sensations of chest pain and shortness of breath. The patient's results were discussed with the patient, including the plan of care. I explained that further testing and/ or monitoring is indicated based on the patient's history, examination, and/ or laboratory findings. Therefore, I recommended admission for additional evaluation. The patient expressed understanding and was agreeable with this plan. The patient was admitted to the hospital in guarded condition and sent to a bed under the care of the [facility] service Physician Communication Physician Communication The patient's case including history, pertinent physical examination findings, and laboratory studies were discussed with Dr. Izquierdo. It was agreed that the patient would be admitted to the [facility] service. Diagnosis Primary Impression: Chest pain, rule out acute myocardial infarction Additional Impression: Elevated troponin Ellie Ma MD Jul 30, 2017 22:30
[2017-07-30 22:52] VITALS: BP 135/89; PULSE 76; RESP 18; O2SAT 100
[2017-07-30] MEDS ORDERED: PAXI30TA7 PO ×2 (22:59)
[2017-07-30] MEDS ORDERED: ASPI81CH6 CHEW (22:59)
[2017-07-30] MEDS ORDERED: FURO20TA PO (22:59)
[2017-07-30] MEDS ORDERED: APIX2.5T PO (22:59)
[2017-07-30] MEDS ORDERED: CYAN1TAB24 (23:00)
[2017-07-30] MEDS ORDERED: NITROGLYCERIN 2% OINT 1 GM PACKET TOPICAL ONE (23:00)
[2017-07-30] MEDS ORDERED: VITACAP7 PO (23:00)
[2017-07-30] MEDS ORDERED: CENTCHW3 (23:00)
[2017-07-30] MEDS ORDERED: NITROGLYCERIN 0.4 MG SL 25 TABS/BTL SL ONE (23:00)
[2017-07-30] MEDS ORDERED: VITA100T65 PO (23:00)
[2017-07-30] MEDS ORDERED: ASPIRIN 81 MG CHEW TAB CHEW ONE (23:00)
[2017-07-30 23:03] LABS: AUTOMATED NEUTROPHIL # 3.7 TH/MM3 (1.8-7.7); BASOPHIL # 0.1 TH/MM3 (0-0.2); BASOPHIL % 0.9 % (0.0-2.0); EOSINOPHIL # 0.2 TH/MM3 (0-0.4); EOSINOPHIL % 4.2 % (0.0-4.0); HEMATOCRIT 32.5 % (35.0-46.0); HEMOGLOBIN 10.9 GM/DL (11.6-15.3); LYMPH % 19.6 % (9.0-44.0); LYMPHOCYTE # 1.2 TH/MM3 (1.0-4.8); MEAN CELL VOLUME 84.9 FL (80.0-100.0); MEAN CORPUSCULAR HEMOGLOBIN 28.4 PG (27.0-34.0); MEAN CORPUSCULAR HGB CONC 33.5 % (32.0-36.0); MEAN PLATELET VOLUME 7.9 FL (7.0-11.0); MONO % 13.1 % (0.0-8.0); MONOCYTE # 0.8 TH/MM3 (0-0.9); NEUT % 62.2 % (16.0-70.0); PLATELET COUNT 170 TH/MM3 (150-450); RED BLOOD COUNT 3.82 MIL/MM3 (4.00-5.30); RED CELL DISTRIBUTION WIDTH 14.8 % (11.6-17.2); WHITE BLOOD COUNT 5.9 TH/MM3 (4.0-11.0)
[2017-07-30 23:16] LABS: INTERNATIONAL NORMALIZED RATIO 1.2 RATIO; PROTHROMBIN TIME - PATIENT 11.8 SEC (9.8-11.6)
[2017-07-30 23:28] LABS: ALBUMIN 3.8 GM/DL (3.4-5.0); BICARBONATE 30.5 MEQ/L (21.0-32.0); CALCIUM 8.8 MG/DL (8.5-10.1); CREATININE 1.1 MG/DL (0.50-1.00); DIRECT BILIRUBIN ADULT 0.1 MG/DL (0.0-0.2); MAGNESIUM 2.3 MG/DL (1.5-2.5)
[2017-07-30 23:42] LABS: INDIRECT BILIRUBIN 0.4 MG/DL (0.0-0.8); TOTAL BILIRUBIN ADULT 0.5 MG/DL (0.2-1.0); TOTAL PROTEIN 7.7 GM/DL (6.4-8.2); TROPONIN I 0.1 NG/ML (0.02-0.05)
[2017-07-30 23:50] VITALS: BP 154/77; PULSE 71; RESP 16; O2SAT 99
[2017-07-31] VITALS (8 sets, daily range): BP systolic 126–157; BP diastolic 60–77; PULSE 54–80; RESP 16–20; TEMP 97.8–98.6; O2SAT 97–100
[2017-07-31] MEDS ORDERED: NITROGLYCERIN 0.4 MG SL 25 TABS/BTL SL PRN (02:30)
[2017-07-31] MEDS ORDERED: ACETAMINOPHEN 500 MG CPLT PO PRN (02:30)
[2017-07-31] MEDS ORDERED: SODIUM CHLORIDE 0.9% FLUSH 10 ML FLUSH IV FLUSH PRN (02:30)
--- NOTE | 2017-07-31 03:43 | HHI.HP ---
[facility] Griffin Wiggins MD Admission Diagnosis cp r/o ACS, intermediate troponin Diagnoses: Travel History International Travel<30 Days: No Contact w/Intl Traveler <30 Da: No Traveled to Known Affected Are: No History of Present Illness 77-year-old female with a past medical history significant for CHF (echo from showed an EF of 15-20%), hypertension, hyperlipidemia, atrial fibrillation on Eliquis and CAD status post AICD placement presents to the emergency department for evaluation of left-sided chest pain/cramping. The patient reports that in August 2016 her AICD fired 72 times and she required intubation for asystole. She states that during that hospitalization she had her pacemaker/AICD replaced and that she has "just not felt right" since that time. The patient states that she had left-sided chest cramping in the area of her pacemaker that started the day before yesterday. She states it was in increments and resolved on its own. She then reports that yesterday morning she woke up and the pain was worse and regular. It does not radiate. She denies any shortness of breath. No nausea/vomiting/diarrhea. No abdominal pain. No weakness. No lateralizing signs/symptoms. Review of Systems Except as stated in HPI: all other systems reviewed are Neg Past Family Social History Past Medical History CHF (echo from 06/26/16 showed an EF of 15-20%) Hypertension Hyperlipidemia Atrial fibrillation anticoagulated on Eliquis CAD Past Surgical History Cardiac catheterization with stent placement 3 Cholecystectomy Reported Medications Reported Meds & Active Scripts Active Digoxin 0.125 Mg Tab 0.125 Mg PO DAILY@08 Coreg (Carvedilol) 12.5 Mg Tab 25 Mg PO Q12HR Reported B Complex (B-Complex Vitamins) 1 Cap 1 Cap PO DAILY B12 (Cyanocobalamin) 1,000 Mcg Tab Centrum Silver (Multiple Vitamins W/ Minerals) 400 Mcg-250 Mcg Chw Vitamin E 100 Unit Tab 100 Units PO DAILY Aspirin Low Dose (Aspirin) 81 Mg Chew 81 Mg CHEW DAILY Paxil (Paroxetine HCl) 30 Mg Tab 30 Mg PO DAILY Paxil (Paroxetine HCl) 30 Mg Tab 20 Mg PO DAILY Eliquis (Apixaban) 2.5 Mg Tab 5 Mg PO BID Furosemide 20 Mg Tab 20 Mg PO BID Zocor (Simvastatin) 20 Mg Tab 20 Mg PO DAILY Potassium Chloride ER (Potassium Chloride) 10 Meq Cap 10 Meq PO BID Lisinopril 5 Mg Tab 5 Mg PO DAILY Allergies: Coded Allergies: codeine (Unverified Allergy, Severe, BLINDNESS, PALPITATIONS, DIAPHORESIS , 07/30/17) Family History Both parents with coronary artery disease. Social History Negative for alcohol, tobacco and illicit drugs. Physical Exam Vital Signs Vital Signs Date Time Temp Pulse Resp B/P (MAP) Pulse Ox O2 Delivery O2 Flow Rate FiO2 07/31/17 01:50 68 16 149/70 (96) 99 Room Air 07/30/17 23:50 71 16 154/77 (102) 99 Room Air 07/30/17 22:52 76 18 135/89 (104) 100 Room Air 07/30/17 21:54 97.8 75 18 142/63 (89) 100 Physical Exam GENERAL: Thin, female sitting up in bed SKIN: No rashes, ecchymoses or lesions. Cool and dry. HEAD: Atraumatic. Normocephalic. No temporal or scalp tenderness. EYES: Pupils equal round and reactive. Extraocular motions intact. No scleral icterus. No injection or drainage. ENT: Nose without bleeding, purulent drainage or septal hematoma. Throat without erythema, tonsillar hypertrophy or exudate. Uvula midline. Airway patent. NECK: Trachea midline. No JVD or lymphadenopathy. Supple, nontender, no meningeal signs. CARDIOVASCULAR: Regular rate and irregularly irregular rhythm without murmurs, gallops, or rubs. RESPIRATORY: Clear to auscultation. Breath sounds equal bilaterally. No wheezes , rales, or rhonchi. GASTROINTESTINAL: Abdomen soft, non-tender, nondistended. No hepato-splenomegaly , or palpable masses. No guarding. MUSCULOSKELETAL: Extremities without clubbing, cyanosis, or edema. No joint tenderness, effusion, or edema noted. No calf tenderness. NEUROLOGICAL: Awake and alert. Cranial nerves II through XII intact. Motor and sensory grossly within normal limits. Normal speech. Laboratory Laboratory Tests Test 07/30/17 22:40 White Blood Count 5.9 Red Blood Count 3.82 Hemoglobin 10.9 Hematocrit 32.5 Mean Corpuscular Volume 84.9 Mean Corpuscular Hemoglobin 28.4 Mean Corpuscular Hemoglobin Concent 33.5 Red Cell Distribution Width 14.8 Platelet Count 170 Mean Platelet Volume 7.9 Neutrophils (%) (Auto) 62.2 Lymphocytes (%) (Auto) 19.6 Monocytes (%) (Auto) 13.1 Eosinophils (%) (Auto) 4.2 Basophils (%) (Auto) 0.9 Neutrophils # (Auto) 3.7 Lymphocytes # (Auto) 1.2 Monocytes # (Auto) 0.8 Eosinophils # (Auto) 0.2 Basophils # (Auto) 0.1 CBC Comment DIFF FINAL Differential Comment Prothrombin Time 11.8 Prothromb Time International Ratio 1.2 Activated Partial Thromboplast Time 29.4 Blood Urea Nitrogen 20 Creatinine 1.10 Random Glucose 94 Total Protein 7.7 Albumin 3.8 Calcium Level 8.8 Magnesium Level 2.3 Alkaline Phosphatase 104 Aspartate Amino Transf (AST/SGOT) 26 Alanine Aminotransferase (ALT/SGPT) 19 Total Bilirubin 0.5 Direct Bilirubin 0.1 Sodium Level 134 Potassium Level 4.4 Chloride Level 99 Carbon Dioxide Level 30.5 Anion Gap 5 Estimat Glomerular Filtration Rate 48 Indirect Bilirubin 0.4 Total Creatine Kinase 64 Troponin I 0.10 B-Type Natriuretic Peptide 383 Digoxin Level 1.0 Result Diagram: 07/30/17223907/30/172239 Caprini VTE Risk Assessment Caprini VTE Risk Assessment: Mod/High Risk (score >= 2) Caprini Risk Assessment Model Point Value = 1 Point Value = 2 Point Value = 3 Point Value = 5 Age 41-60 Minor surgery BMI > 25 kg/m2 Swollen legs Varicose veins or History of unexplained or recurrent spontaneous Oral contraceptives or hormone replacement Sepsis (< 1 month) Serious lung disease, including pneumonia (< 1 month) Abnormal pulmonary function Acute myocardial infarction Congestive heart failure (< 1 month) History of inflammatory bowel disease Medical patient at bed rest Age 61-74 Arthroscopic surgery Major open surgery (> 45 min) Laparoscopic surgery (> 45 min) Malignancy Confined to bed (> 72 hours) Immobilizing plaster cast Central venous access Age >= 75 History of VTE Family history of VTE Factor V Leiden Prothrombin [id number] Lupus anticoagulant Anticardiolipin antibodies Elevated serum homocysteine Heparin-induced thrombocytopenia Other congenital or acquired thrombophilia Stroke (< 1 month) Elective arthroplasty Hip, pelvis, or leg fracture Acute spinal cord injury (< 1 month) Prophylaxis Regimen Total Risk Factor Score Risk Level Prophylaxis Regimen 0-1 Low Early ambulation 2 Moderate Order ONE of the following: *Sequential Compression Device (SCD) *Heparin 5000 units SQ BID 3-4 Higher Order ONE of the following medications: *Heparin 5000 units SQ TID *Enoxaparin/Lovenox 40 mg SQ daily (WT < 150 kg, CrCl > 30 mL/min) *Enoxaparin/Lovenox 30 mg SQ daily (WT < 150 kg, CrCl > 10-29 mL/min) *Enoxaparin/Lovenox 30 mg SQ BID (WT < 150 kg, CrCl > 30 mL/min) AND/OR *Sequential Compression Device (SCD) 5 or more Highest Order ONE of the following medications: *Heparin 5000 units SQ TID (Preferred with Epidurals) *Enoxaparin/Lovenox 40 mg SQ daily (WT < 150 kg, CrCl > 30 mL/min) *Enoxaparin/Lovenox 30 mg SQ daily (WT < 150 kg, CrCl > 10-29 mL/min) *Enoxaparin/Lovenox 30 mg SQ BID (WT < 150 kg, CrCl > 30 mL/min) AND *Sequential Compression Device (SCD) Assessment and Plan Assessment and Plan Assessment/plan: 1. Chest pain Initial troponin 0.10 EKG significant for atrial fibrillation without ST segment elevations or depressions, left bundle branch block, personally reviewed ACS rule out pending; serial troponins/EKGs Nitro SL Last pacemaker interrogation done on 07/25/17 -pacemaker functioning appropriately and patient requiring pacing less than 1% of the time Patient has a appointment with her bottler helper, Dr. Monsivais, later today. 2. Atrial fibrillation Continue home medications Continue anticoagulation with Eliquis 3. CHF Last echo done 06/26/16 showed an EF of 15-20% BNP 383 Continue home medications 4. Hypertension/hyperlipidemia/CAD Continue home medications FEN NPO Electrolytes: monitor and replete prn Eliquis Physician Certification 2 Midnight Certification Type: Admission for Inpatient Services Order for Inpatient Services The services are ordered in accordance with Medicare regulations or non- Medicare payer requirements, as applicable. In the case of services not specified as inpatient-only, they are appropriately provided as inpatient services in accordance with the 2-midnight benchmark. Estimated LOS (days): 2 2 days is the estimated time the patient will need to remain in the hospital, assuming treatment plan goals are met and no additional complications. Post-Hospital Plan: Not yet determined Ashley Izquierdo MD Jul 31, 2017 03:43
[2017-07-31 05:02] LABS: TROPONIN I 0.11 NG/ML (0.02-0.05)
[2017-07-31] MEDS: ASPIRIN 81 MG CHEW TAB CHEW SCH (09:00)
--- NOTE | 2017-07-31 09:32 | EKG ---
Date Performed: 07/31/2017 Time Performed: 06:05:32 PTAGE: 77 years EKG: Atrial fibrillation Indeterminate axis Marked IVCD Suspect lead reversal Abnormal ECG PREVIOUS TRACING : 07/30/2017 22.36 Since the previous tracing, no significant change noted DOCTOR: Shakila Lopez Interpretating Date/Time 07/31/2017 09:30:56
[2017-07-31] MEDS: DIGOXIN 0.125 MG TAB PO SCH (10:05)
[2017-07-31] MEDS: ASPIRIN 325 MG TAB PO SCH (10:05)
[2017-07-31] MEDS: SODIUM CHLORIDE 0.9% FLUSH 10 ML FLUSH IV FLUSH SCH ×2 (10:05→21:00)
[2017-07-31] MEDS: PARoxetine HCL 20 MG TAB PO SCH (10:06)
[2017-07-31] MEDS: LISINOPRIL 5 MG TAB PO SCH (10:06)
[2017-07-31] MEDS: FUROSEMIDE 20 MG TAB PO SCH ×2 (10:06→22:59)
[2017-07-31] MEDS: PRAVASTATIN SOD 40 MG TAB PO SCH (10:06)
[2017-07-31] MEDS: CARVEDILOL 12.5 MG TAB PO SCH ×2 (10:06→23:00)
[2017-07-31] MEDS: APIXABAN 5 MG TABLET PO SCH ×2 (10:07→23:00)
[2017-07-31] MEDS: POTASSIUM CHLORIDE 10 MEQ CAP PO SCH ×2 (10:07→22:59)
[2017-07-31 11:41] LABS: TROPONIN I 0.11 NG/ML (0.02-0.05)
--- NOTE | 2017-07-31 14:36 | MB ---
cc: Alvaro Nettles MD DATE: 07/31/2017 REASON FOR CONSULTATION: Chest pain. HISTORY OF PRESENT ILLNESS: The patient is a very pleasant 77-year-old white female, followed in our office by Dr. Fernando Benjamin, with a history of coronary artery disease, severe dilated cardiomyopathy with ejection fraction of 10-15%, paroxysmal atrial fibrillation, AICD implant 2008 with implantation of a new system last year due to malfunction of the old AICD, hypertension, who presented to the hospital with chest pain. Yesterday evening, she began to experience a "cramp" sensation right underneath her AICD generator site. The discomfort has been present in a constant fashion until today, although waxing and waning in severity. She denies nausea or diaphoresis, but has felt some increase in baseline shortness of breath in the last few days. She denies dizziness, syncope, near syncope, palpitations, pedal edema, paroxysmal nocturnal dyspnea, recurrent AICD shocks. PAST MEDICAL HISTORY: 1. Hypertension. 2. Paroxysmal atrial fibrillation. 3. Severe dilated cardiomyopathy with ejection fraction of 15% by echo 06/26/2016 and by cardiac catheterization 08/2016. 4. Hyperlipidemia. 5. History of a single-chamber [employer] Son AICD implant 05/06/2008. She was admitted last year after 72 AICD shocks due to AICD malfunction. She underwent placement of a new system by Dr. Cordova in 08/2016. 6. History of coronary artery disease, status post stent of the right coronary artery in its proximal to mid section 11/28/[address] Brittany Bull using two 3.5 mm bare-metal stents. Her last heart catheterization was by Dr. Scout Navarro 08/17/2016 showing a normal left main, 10-20% proximal LAD disease, 40-50% mid LAD stenosis unchanged from 2007, 10-20% diffuse left circumflex disease, 20-30% mid right coronary within the previously placed stent. CARDIAC MEDICATIONS AT HOME: 1. Lisinopril 5 mg daily. 2. Potassium chloride 10 mEq b.i.d. 3. Zocor 20 mg daily. 4. Furosemide 20 mg b.i.d. 5. Eliquis 5 mg b.i.d. 6. Aspirin 81 mg daily. 7. Coreg 12.5 mg every 12 hours. 8. Digoxin 0.125 mg daily. ALLERGIES: CODEINE. FAMILY HISTORY: Noncontributory. SOCIAL HISTORY: The patient is a former smoker. There is no history of alcohol abuse. REVIEW OF SYSTEMS: As in history of present illness, otherwise negative or noncontributory. She also denies headache, abdominal pain, melena, dyspepsia, bright red blood per rectum, recent flu symptoms, and fever. PHYSICAL EXAMINATION: VITAL SIGNS: Her blood pressure 150/77 with a pulse of 75, respirations 18. GENERAL: She is a well-developed, thin white female, in no acute distress. NECK: Jugular venous pressure normal. Carotid pulses are 2+ bilaterally and without bruits. CHEST: Reveals clear lungs muir. CARDIAC: She has an irregular rate and rhythm without S3 or murmur. ABDOMEN: She has a soft, nontender abdomen. Bowel sounds are present. There is no definite hepatosplenomegaly. EXTREMITIES: Reveals no clubbing, cyanosis or edema. DIAGNOSTIC STUDIES: EKG shows atrial fibrillation, left bundle branch block. Laboratory data includes WBC 5.9, hemoglobin 10.9, platelets 170. Potassium 4.4, BUN 20, creatinine 1.10. Troponin 0.11. CK 64. Chest x-ray shows no acute disease. IMPRESSION: Overall atypical chest pains in a 77-year-old white female with a history of coronary artery disease, severe dilated cardiomyopathy with ejection fraction of 15%, history of automatic implantable cardioverter-defibrillator implant, hypertension, hyperlipidemia, paroxysmal atrial fibrillation. Despite prolonged chest discomfort since yesterday evening, CK levels are negative for myocardial infarction. Troponin levels are only minimally elevated. She did have a heart catheterization less than a year ago showing favorable findings. EKG is nondiagnostic due to left bundle branch block-like conduction delay. The discomfort seems to originate from her automatic implantable cardioverter-defibrillator area. The site appears to be well healed. There is no evidence for infection. RECOMMENDATIONS: 1. Continue her comprehensive home cardiac medical regimen. 2. Check a Lexiscan nuclear stress test. Unless it is markedly abnormal, would recommend medical therapy. 3. I will followup as needed for any ischemia demonstrated on her nuclear stress testing. MD PABLO Ramos/MARKIE , 01:52 PM , 02:35 PM HIEU
[2017-07-31] MEDS ORDERED: REGADENOSON INJ 0.4 MG/5 ML SYR ONE (15:04)
--- NOTE | 2017-07-31 16:06 | RADRPT ---
EXAM DATE/TIME: 07/31/2017 14:50 [facility] COMPARISON: No previous studies available for comparison. INDICATIONS : Left sided chest pain. Chest pain on Digoxin. Atrial fibrillation. DOSE: 25.8 mCi Tc99m Myoview at stress. 8.1 mCi Tc99m Myoview at rest. 0.4 mg Lexiscan STRESS SYMPTOMS: None. EJECTION FRACTION: 27% MEDICAL HISTORY : Cardiovascular disease. Hypertension. SURGICAL HISTORY : Pacemaker. Cholecystectomy. Hysterectomy. ENCOUNTER: Initial ACUITY: 1 day PAIN SCALE: 3/10 LOCATION: Bilateral chest TECHNIQUE: The patient underwent pharmacologic stress with infusion of prescribed dose. Continuous ECG tracing was monitored during stress. Gated SPECT imaging was performed after stress and conventional SPECT i maging was performed at rest. The examination was performed on a SPECT/CT scanner, both attenuation and non-corrected datasets were reviewed. FINDINGS: DISTRIBUTION: The maximum perfused segment at stress is in the anterolateral wall. PERFUSION STUDY: There is moderately diminished apical perfusion. No definite redistribution. GATED STUDY: Moderate left ventricular chamber dilatation and severe global hypokinesis CONCLUSION: Moderate LV dilatation and significant LV dysfunction. No definite ischemia RISK CATEGORY: High (>3% Annual Mortality Rate) Patrick Wheat MD on July 31, 2017 at 15:59 Board Certified Radiologist. This report was verified electronically.
--- NOTE | 2017-07-31 21:42 | EKG ---
Date Performed: 07/31/2017 Time Performed: 10:59:45 PTAGE: 77 years EKG: ATRIAL FIBRILLATION MARKED LEFT AXIS DEVIATION LEFT BUNDLE BRANCH BLOCK ABNORMAL ECG PREVIOUS TRACING : 07/31/2017 06.05 Since the previous tracing, no significant change noted DOCTOR: Shakila Lopez Interpretating Date/Time 07/31/2017 21:40:38
--- NOTE | 2017-07-31 22:34 | EKG ---
Date Performed: 07/30/2017 Time Performed: 22:36:02 PTAGE: 77 years EKG: ATRIAL FIBRILLATION MARKED LEFT AXIS DEVIATION LEFT BUNDLE BRANCH BLOCK ABNORMAL ECG PREVIOUS TRACING : 08/21/2016 05.25 Since the previous tracing, no significant change noted DOCTOR: Shakila Lopez Interpretating Date/Time 07/31/2017 22:32:46
[2017-08-01] VITALS: BP 144/68; PULSE 66; RESP 20; TEMP 98.4; O2SAT 97
[2017-08-01 04:00] VITALS: BP 138/68; PULSE 68; RESP 20; TEMP 98; O2SAT 97
[2017-08-01 04:49] LABS: AUTOMATED NEUTROPHIL # 3.2 TH/MM3 (1.8-7.7); BASOPHIL % 0.6 % (0.0-2.0); EOSINOPHIL # 0.2 TH/MM3 (0-0.4); EOSINOPHIL % 3.2 % (0.0-4.0); HEMATOCRIT 32.6 % (35.0-46.0); HEMOGLOBIN 10.7 GM/DL (11.6-15.3); LYMPH % 23.7 % (9.0-44.0); LYMPHOCYTE # 1.3 TH/MM3 (1.0-4.8); MEAN CELL VOLUME 85.2 FL (80.0-100.0); MEAN CORPUSCULAR HGB CONC 32.9 % (32.0-36.0); MEAN PLATELET VOLUME 7.7 FL (7.0-11.0); MONO % 13.3 % (0.0-8.0); MONOCYTE # 0.7 TH/MM3 (0-0.9); NEUT % 59.2 % (16.0-70.0); PLATELET COUNT 160 TH/MM3 (150-450); RED BLOOD COUNT 3.82 MIL/MM3 (4.00-5.30); RED CELL DISTRIBUTION WIDTH 14.7 % (11.6-17.2); WHITE BLOOD COUNT 5.4 TH/MM3 (4.0-11.0)
[2017-08-01 05:12] LABS: ALBUMIN 3.6 GM/DL (3.4-5.0); ALT (GPT) 19 U/L (10-53); AST (GOT) 22 U/L (15-37); BICARBONATE 30.5 MEQ/L (21.0-32.0); BLOOD UREA NITROGEN 18 MG/DL (7-18); CALCIUM 8.8 MG/DL (8.5-10.1); CHLORIDE 102 MEQ/L (98-107); CREATININE 0.98 MG/DL (0.50-1.00); GLOMERULAR FILTRATION RATE 55 ML/MIN (>89); GLUCOSE,RANDOM 88 MG/DL (74-106); SODIUM (NA) 139 MEQ/L (136-145)
[2017-08-01 05:14] LABS: ALKALINE PHOSPHATASE 94 U/L (45-117); TOTAL BILIRUBIN ADULT 0.6 MG/DL (0.2-1.0); TOTAL PROTEIN 7.3 GM/DL (6.4-8.2)
[2017-08-01 08:00] VITALS: BP 132/64; PULSE 90; RESP 22; TEMP 97.9; O2SAT 97
[2017-08-01 08:40] VITALS: PULSE 92
[2017-08-01] MEDS: ASPIRIN 81 MG CHEW TAB CHEW SCH (09:00)
[2017-08-01] MEDS: APIXABAN 5 MG TABLET PO SCH (09:10)
[2017-08-01] MEDS: LISINOPRIL 5 MG TAB PO SCH (09:10)
[2017-08-01] MEDS: PARoxetine HCL 20 MG TAB PO SCH (09:10)
[2017-08-01] MEDS: SODIUM CHLORIDE 0.9% FLUSH 10 ML FLUSH IV FLUSH SCH (09:11)
[2017-08-01] MEDS: ASPIRIN 325 MG TAB PO SCH (09:11)
[2017-08-01] MEDS: FUROSEMIDE 20 MG TAB PO SCH (09:11)
[2017-08-01] MEDS: POTASSIUM CHLORIDE 10 MEQ CAP PO SCH (09:11)
[2017-08-01] MEDS: CARVEDILOL 12.5 MG TAB PO SCH (09:11)
[2017-08-01] MEDS: PRAVASTATIN SOD 40 MG TAB PO SCH (09:12)
[2017-08-01] MEDS: DIGOXIN 0.125 MG TAB PO SCH (09:12)
[2017-08-01 12:00] VITALS: BP 108/57; PULSE 76; RESP 20; TEMP 98.1; O2SAT 98
--- NOTE | 2017-08-01 12:25 | HHI.DS ---
Discharge Summary Admission Date Jul 31, 2017 at 00:24 Discharge Date: Aug 01, 2017 Admitting Diagnosis cp r/o ACS, intermediate troponin (1) Chest pain, rule out acute myocardial infarction ICD Code: R07.9 - Chest pain, unspecified Diagnosis: Principal Status: Acute (2) Elevated troponin ICD Code: R74.8 - Abnormal levels of other serum enzymes Diagnosis: Principal Status: Acute Procedures Stress Test Brief History - From Admission 77-year-old female with a past medical history significant for CHF (echo from showed an EF of 15-20%), hypertension, hyperlipidemia, atrial fibrillation on Eliquis and CAD status post AICD placement presents to the emergency department for evaluation of left-sided chest pain/cramping. The patient reports that in August 2016 her AICD fired 72 times and she required intubation for asystole. She states that during that hospitalization she had her pacemaker/AICD replaced and that she has "just not felt right" since that time. The patient states that she had left-sided chest cramping in the area of her pacemaker that started the day before yesterday. She states it was in increments and resolved on its own. She then reports that yesterday morning she woke up and the pain was worse and regular. It does not radiate. She denies any shortness of breath. No nausea/vomiting/diarrhea. No abdominal pain. No weakness. No lateralizing signs/symptoms. CBC/BMP: 08/01/17 0432 08/01/17 0432 Significant Findings Laboratory Tests Test 07/30/17 22:40 07/31/17 03:53 07/31/17 10:40 08/01/17 04:32 Red Blood Count 3.82 MIL/MM3 (4.00-5.30) 3.82 MIL/MM3 (4.00-5.30) Hemoglobin 10.9 GM/DL (11.6-15.3) 10.7 GM/DL (11.6-15.3) Hematocrit 32.5 % (35.0-46.0) 32.6 % (35.0-46.0) Monocytes (%) (Auto) 13.1 % (0.0-8.0) 13.3 % (0.0-8.0) Eosinophils (%) (Auto) 4.2 % (0.0-4.0) Prothrombin Time 11.8 SEC (9.8-11.6) Blood Urea Nitrogen 20 MG/DL (7-18) Creatinine 1.10 MG/DL (0.50-1.00) Sodium Level 134 MEQ/L (136-145) Estimat Glomerular Filtration Rate 48 ML/MIN (>89) 55 ML/MIN (>89) Troponin I 0.10 NG/ML (0.02-0.05) 0.11 NG/ML (0.02-0.05) 0.11 NG/ML (0.02-0.05) B-Type Natriuretic Peptide 383 PG/ML (0-100) Hospital Course Mrs. Lepe is a 77-year-old female. She is admitted secondary to atypical chest pain. There was a mild troponin elevation also. She has chronically elevated troponin at baseline. Stress test was performed due to persistent symptoms. She did well with the stress test and has findings of cardiac pathology which are already known. No findings of ischemic defect. She is cleared by cardiology for discharge home. She is feeling better today and back to baseline. Medically clear and stable for discharge home today. Pt Condition on Discharge: Stable Discharge Disposition: Discharge Home Discharge Time: <= 30 minutes Discharge Instructions DIET: Follow Instructions for: Heart Healthy Diet Activities you can perform: Regular-No Restrictions Follow up Referrals: Cardiology - 2 Weeks PCP Follow-up - 2 Weeks Continued Medications: Apixaban (Eliquis) 2.5 Mg Tab 5 MG PO BID for Blood Clot Prevention, TAB 0 Refills Aspirin (Aspirin Low Dose) 81 Mg Chew 81 MG CHEW DAILY, TAB 0 Refills B-Complex Vitamins (B Complex) 1 Cap 1 CAP PO DAILY for Nutritional Supplement, #30 CAP 0 Refills Carvedilol (Coreg) 12.5 Mg Tab 25 MG PO Q12HR for Blood Pressure Management, #60 TAB Cyanocobalamin (B12) 1,000 Mcg Tab Digoxin (Digoxin) 0.125 Mg Tab 0.125 MG PO DAILY@08 for afib, #30 TAB Furosemide (Furosemide) 20 Mg Tab 20 MG PO BID, #60 TAB 0 Refills Lisinopril (Lisinopril) 5 Mg Tab 5 MG PO DAILY for Blood Pressure Management, #30 TAB 0 Refills Multiple Vitamins W/ Minerals (Centrum Silver) 400 Mcg-250 Mcg Chw Paroxetine (Paxil) 30 Mg Tab 30 MG PO DAILY, #30 TAB 0 Refills Potassium Chloride ER (Potassium Chloride ER) 10 Meq Cap 10 MEQ PO BID for Electrolyte Replacement, #60 CAP 0 Refills Simvastatin (Zocor) 20 Mg Tab 20 MG PO DAILY for Cholesterol Management, #30 TAB 0 Refills Vitamin E (Vitamin E) 100 Unit Tab 100 UNITS PO DAILY for Nutritional Supplement, TAB 0 Refills Discontinued Medications: Paroxetine (Paxil) 30 Mg Tab 20 MG PO DAILY, #30 TAB 0 Refills Donavan Jeter MD Aug 01, 2017 12:25
[2017-08-01 12:54] VITALS: PULSE 76
== END 2017-08-01 16:07 | disposition home or self-care (01) | DRG 315 ==
LOC: NEPE 21:38 → NEDA 07-31 00:24 → N03B 07-31 04:25
PROVIDERS: ADMIT Hospitalist; ATTEND Hospitalist
DX: T82.847A Pain due to cardiac prosthetic devices, implants and grafts, initial encounter (principal); I42.0 Dilated cardiomyopathy; I11.0 Hypertensive heart disease with heart failure; I50.9 Heart failure, unspecified; I48.0 Paroxysmal atrial fibrillation; I44.7 Left bundle-branch block, unspecified; G62.9 Polyneuropathy, unspecified; G89.28 Other chronic postprocedural pain; I25.10 Atherosclerotic heart disease of native coronary artery without angina pectoris; E78.5 Hyperlipidemia, unspecified; Z95.5 Presence of coronary angioplasty implant and graft; Z79.01 Long term (current) use of anticoagulants; Z79.82 Long term (current) use of aspirin; Z79.899 Other long term (current) drug therapy; Z88.5 Allergy status to narcotic agent; Z87.891 Personal history of nicotine dependence
CPT/HCPCS: 71046; 78452; 80048; 80053; 80076; 80162; 82550; 83735; 83880; 84484; 85025; 85610; 85730; 93005; 93017; A9502; J2785